=== PATIENT | male | born 1945 | race Caucasian/White ===

== ENCOUNTER 2016-05-16 11:43 | Inpatient (IN) | payer OTHER, BC ==
[~2016-05-16] VITALS: Ht 177.8 cm; Wt 98.8 kg
[~2016-05-16 11:43] MED LIST: ACET-1175 PO; CALC500C70 PO; DLN100 PO; DXM/4 PO; FAMO20TA11 PO; LEVE500T PO; LEVE500T13 PO; LORA-741 PO; MULTTAB58 PO; NITR1CAP32 PO; PROB1TAB16 PO; ROSU5TAB PO; SERT50TA PO; TAMS0.4C38 PO; VNTHFA/IN INH
[2016-05-16] MEDS ORDERED: LEVETIRACETAM IV 500 MG in DEXTROSE 5% 100ML 100 ML IV STA (12:05)
[2016-05-16] MEDS ORDERED: SODIUM CHLORIDE 0.9% 1000ML 1,000 ML IV STA (12:05)
--- NOTE | 2016-05-16 12:08 | EMERGENCY ROOM VISIT NOTE ---
History Report prepared by Keny: Bacilio Romero Under the Supervision of: Dr. Guilherme Cordero M.D. First contact with patient: 11:59 Chief Complaint: SEIZURE Stated Complaint: SEIZURE History of Present Illness The patient is a 70 year old male who presents to the Emergency Room with complaints of an episode of seizure occurring earlier today. Per the nurse, he was discharged from [facility] 2 days ago, and this morning he fell and had a seizure. It was not understood which occurred first. He lives at home. He had some right sided weakness, and is noted to have a brain tumor that was not operated on. The nurse notes the patient is slow to respond. The patient denies having any pain. The patient is on Keppra and Decadron. History is limited secondary to speech issue. The patient's has arrived, and she notes he had a fever this morning, and increased cough. Source of History: patient, spouse/significant other (), nursing staff History Limited By: other (speech issue) Onset: earlier today Position: other (global) Quality: other (seizure) Timing: other (episode) Associated Symptoms: + cough, + fevers (this morning), + weakness (Patient was noted to have right sided weakness) Note: The patient denies having any pain. Review of Systems ROS is unobtainable secondary to speech issue. Past Medical & Surgical Medical Problems: (1) Astrocytoma brain tumor (2) Diverticulitis (3) High cholesterol (4) HTN (hypertension) (5) No history of seizures (6) Seizures Family History Cancer Seizures Social History Smoking Status: Never Smoker Alcohol Use: none Drug Use: none Marital Status: Housing Status: lives with significant other Occupation Status: retired Current/Historical Medications Scheduled Aspirin (Aspirin Ec), 81 MG PO DAILY Dexamethasone (Dexamethasone), 4 MG PO BID Famotidine (Pepcid), 20 MG PO BID Lamotrigine (Lamictal), 100 MG PO BID Levetiracetam (Keppra), 1,500 MG PO Q12 Lorazepam (Ativan), 0.75 MG PO TID Multiple Vitamin (Multivitamin), 1 TAB PO DAILY Rosuvastatin Calcium (Crestor), 5 MG PO DAILY Sertraline (Zoloft), 200 MG PO DAILY Tamsulosin Hcl (Flomax), 0.4 MG PO HS Scheduled PRN Acetaminophen (Tylenol), 650 MG PO Q4 PRN for Pain Albuterol Hfa (Ventolin Hfa), 1 PUFF INH QID PRN for SOB/Wheezing Allergies Coded Allergies: No Known Allergies (Unverified , 05/16/16) Physical Exam Vital Signs Date Time Temp Pulse Resp B/P Pulse Ox O2 Delivery O2 Flow Rate FiO2 05/16/16 15:10 93 Room Air 05/16/16 14:18 57 23 154/87 93 Nasal Cannula 2.0 05/16/16 13:53 36.5 52 18 95 Room Air 05/16/16 12:55 46 22 150/84 96 Nasal Cannula 2.0 05/16/16 11:52 52 05/16/16 11:47 37.2 61 18 146/80 96 Nasal Cannula 2.0 Physical Exam GENERAL: Patient is in no acute distress. HEENT: No acute trauma, normocephalic atraumatic, mucous membranes moist, no nasal congestion, no scleral icterus. NECK: No stridor, no adenopathy, no meningismus, trachea is midline. LUNGS: Clear to auscultation bilaterally, no wheeze, no rhonchi, breath sounds equal. HEART: Without murmurs gallops or rubs, regular rate and rhythm. ABDOMEN: Soft, nontender, bowel sounds positive, no hernias, no peritonitis. EXTREMITIES: No edema. Skin tear to right lateral elbow. No evidence of fracture. No evidence for injury to other extremities. No cellulitis. NEUROLOGIC: Expressive aphagia and basic word salad. No facial droop. Patient is awake and can follow commands. Right arm and leg are weaker than left. SKIN: No rash, no jaundice, no diaphoresis. Medical Decision & Procedures ER Provider Diagnostic Interpretation: X ray results and stated below per my interpretation and radiologist interpretation. Other radiology results and stated below per my review and radiologist interpretation: HEAD CT NONCONTRAST Findings: Near complete opacification left frontal sinus. Mild mucosal thickening of the ethmoid and maxillary sinuses. The partially calcified left temporal lobe mass is again noted. These show no major change compared to the prior study. There is no midline shift. Hypodensity left superior temporal lobe possibly on the basis of a component of vasogenic edema is unchanged. There are no new or interval findings. There is no midline shift. The calvarium and skull base are intact. The ventricles and sulci are within normal limits. Impression: 1. Unchanging left temporal lobe mass. 2. Unchanging vasogenic edema left superior cerebral convexity. 3. Moderately progressive frontal, maxillary, and ethmoid sinusitis Electronically signed by: Gabino Palafox M.D. 05/16/2016 12:42 PM Dictated Date/Time: 05/16/2016 12:39 PM CHEST ONE VIEW PORTABLE FINDINGS: Interval development of a component of congestive failure. Small superimposed parenchymal infiltrate left midlung. Diaphragms smooth. IMPRESSION: Developing congestive failure. Small superimposed parenchymal infiltrate left midlung Electronically signed by: Gabino Palafox M.D. 05/16/2016 12:43 PM Dictated Date/Time: 05/16/2016 12:42 PM CHEST 2 VIEWS ROUTINE FINDINGS: Mild cardiomegaly. Mild congestive failure. Left lower lobe infiltrate. Atelectasis right base. IMPRESSION: Mild congestive failure with superimposed left mid and lower lung infiltrate again noted. This appears to be a left lower lobe distribution. Mild right basilar atelectasis. Electronically signed by: Gabino Palafox M.D. 05/16/2016 1:21 PM Dictated Date/Time: 05/16/2016 1:19 PM Laboratory Results 05/16/16 11:26 Red Blood Count 4.85, Mean Corpuscular Volume 98.4, Mean Corpuscular Hemoglobin 33.4, Mean Corpuscular Hemoglobin Concent 34.0, Mean Platelet Volume 11.7, Neutrophils (%) (Auto) 89.8, Lymphocytes (%) (Auto) 4.6, Monocytes (%) (Auto) 4.9, Eosinophils (%) (Auto) 0.1, Basophils (%) (Auto) 0.0, Neutrophils # (Auto) 18.73, Lymphocytes # (Auto) 0.95, Monocytes # (Auto) 1.03, Eosinophils # (Auto) 0.02, Basophils # (Auto) 0.01 05/16/16 11:26 Test 05/16/16 11:26 05/16/16 11:55 White Blood Count 20.86 K/uL (4.8-10.8) Red Blood Count 4.85 M/uL (4.7-6.1) Hemoglobin 16.2 g/dL (14.0-18.0) Hematocrit 47.7 % (42-52) Mean Corpuscular Volume 98.4 fL (80-100) Mean Corpuscular Hemoglobin 33.4 pg (25-34) Mean Corpuscular Hemoglobin Concent 34.0 g/dl (32-36) Platelet Count 165 K/uL (130-400) Mean Platelet Volume 11.7 fL (7.4-10.4) Neutrophils (%) (Auto) 89.8 % Lymphocytes (%) (Auto) 4.6 % Monocytes (%) (Auto) 4.9 % Eosinophils (%) (Auto) 0.1 % Basophils (%) (Auto) 0.0 % Neutrophils # (Auto) 18.73 K/uL (1.4-6.5) Lymphocytes # (Auto) 0.95 K/uL (1.2-3.4) Monocytes # (Auto) 1.03 K/uL (0.11-0.59) Eosinophils # (Auto) 0.02 K/uL (0-0.5) Basophils # (Auto) 0.01 K/uL (0-0.2) RDW Standard Deviation 52.1 fL (36.4-46.3) RDW Coefficient of Variation 14.5 % (11.5-14.5) Immature Granulocyte % (Auto) 0.6 % Immature Granulocyte # (Auto) 0.12 K/uL (0.00-0.02) Prothrombin Time 10.6 SECONDS (9.0-12.0) Prothromb Time International Ratio 1.0 (0.9-1.1) Activated Partial Thromboplast Time 25.0 SECONDS (21.0-31.0) Partial Thromboplastin Ratio 1.0 Anion Gap 7.0 mmol/L (3-11) Est Creatinine Clear Calc Drug Dose 120.8 ml/min Estimated GFR () 112.9 Estimated GFR (Non- 97.4 BUN/Creatinine Ratio 30.0 (10-20) Calcium Level 8.5 mg/dl (8.5-10.1) Total Bilirubin 0.7 mg/dl (0.2-1) Aspartate Amino Transf (AST/SGOT) 21 U/L (15-37) Alanine Aminotransferase (ALT/SGPT) 69 U/L (12-78) Alkaline Phosphatase 64 U/L (45-117) Pro-B-Type Natriuretic Peptide 343 pg/ml (0-900) Total Protein 6.1 gm/dl (6.4-8.2) Albumin 3.3 gm/dl (3.4-5.0) Globulin 2.8 gm/dl (2.5-4.0) Albumin/Globulin Ratio 1.2 (0.9-2) Urine Color DK YELLOW Urine Appearance CLEAR (CLEAR) Urine pH 6.5 (4.5-7.5) Urine Specific [place] 1.034 (1.000-1.030) Urine Protein NEG (NEG) Urine Glucose (UA) NEG (NEG) Urine Ketones NEG (NEG) Urine Occult Blood NEG (NEG) Urine Nitrite NEG (NEG) Urine Bilirubin NEG (NEG) Urine Urobilinogen NEG (NEG) Urine Leukocyte Esterase TRACE (NEG) Urine WBC (Auto) 1-5 /hpf (0-5) Urine RBC (Auto) 0-4 /hpf (0-4) Urine Hyaline Casts (Auto) 1-5 /lpf (0-5) Urine Epithelial Cells (Auto) 5-10 /lpf (0-5) Urine Bacteria (Auto) NEG (NEG) Laboratory results reviewed by me. Medications Administered Medications (Trade) Dose Ordered Sig/Pietro Route Start Time Stop Time Status Last Admin Dose Admin Sodium Chloride 1,000 ml @ 200 mls/hr Q5H STAT IV 05/16/16 12:05 05/16/16 16:03 DC 05/16/16 12:15 200 MLS/HR Levetiracetam/ Dextrose (Keppra Iv/D5 100ml) 105 ml @ 420 mls/hr NOW STAT IV 05/16/16 12:05 05/16/16 12:19 DC 05/16/16 12:53 420 MLS/HR Piperacillin Sod/ Tazobactam Sod (Zosyn Iv) 4.5 gm NOW STAT IV 05/16/16 13:27 05/16/16 13:28 DC 05/16/16 14:08 4.5 GM Albuterol/ Ipratropium (Duoneb) 3 ml NOW STAT INH 05/16/16 13:53 05/16/16 13:54 DC 05/16/16 14:08 3 ML ECG Indication: other (seizure) Rate (beats per minute): 52 Rhythm: sinus bradycardia Findings: PAC, no acute ischemic change ED Course 1201: The patient was evaluated in room B2. A complete history and physical exam was performed. 1205: Ordered Levetiracetam 500 mg/Dextrose 105 ml @ 420 mls/hr IV, and NSS 1, 000 ml @ 200 mls/hr IV. 1327: Ordered Zosyn Iv 4.5 gm IV. 1349: I updated the patient and his . 1353: Ordered Duoneb 3 ml INH. 1425: Discussed the patient's case MEY Rod. The patient will be evaluated for further management. 1430: Upon reexamination the patient is hemodynamically stable. I discussed results and treatment plan with the patient. He verbalizes agreement and understanding. The patient will be evaluated for further management. Medical Decision Differentials include breath through seizure, subtherapeutic anti seizure levels , intracranial bleeding, stroke, mass, infection, electrolyte imbalance. There is a significant leukocytosis, this would be consistent with infection. White count is 20,000. No worrisome anemia. No significant electrolyte abnormality, kidney failure or hepatitis. Brain CT shows evidence for his known malignancy, there was no bleeding, progressive sinusitis was noted. Chest x-ray shows what appears to be a pneumonia, no pneumothorax. The radiologist questioned CHF however, the patient does not present clinically with this picture, BNP is not elevated. EKG shows a sinus bradycardia, there was no acute ischemia. Urinalysis does not show infection. There is no coagulopathy. The patient presents with a seizure. Once his arrived, we were able to obtain more history. He has had a cough and a fever was noted this morning. The patient requires admission/observation. He has had a breakthrough seizure, he has pneumonia. He fell at home. The patient received IV saline, a DuoNeb, he received a dose of IV Keppra, 500 mg. He was given IV Zosyn for antibiotic coverage. I talked with the family, I talked with case management. The on-call hospitalist was consulted. Consults Time Called: 1358 Consulting Physician: Dr. Garret MATHIAS Returned Call: [phone] Discussed the patient's case MEY Rod. The patient will be evaluated for further management. Impression Primary Impression: Pneumonia Additional Impression: Seizure Scribe Attestation The scribe's documentation has been prepared under my direction and personally reviewed by me in its entirety. I confirm that the note above accurately reflects all work, treatment, procedures, and medical decision making performed by me. Departure Information Dispostion Being Evaluated By Hospitalist Referrals Cherry Lange C.R.N.P. (PCP) Patient Instructions [facility] Problem Qualifiers
[2016-05-16] MEDS ORDERED: DEXA1TAB16 PO (12:14)
[2016-05-16] MEDS ORDERED: ASPI81TA28 PO (12:14)
[2016-05-16] MEDS ORDERED: LAMO100T16 PO (12:14)
[2016-05-16 12:21] LABS: BASO ABS # 0.01 K/uL (0-0.2); COMPLETE YES; EOS % 0.1 %; HEMATOCRIT 47.7 % (42-52); IG% 0.6 %; LYMPH % 4.6 %; LYMPH ABS # 0.95 K/uL (1.2-3.4); MEAN CELL VOLUME 98.4 fL (80-100); MEAN CORPUSCULAR HEMOGLOBIN 33.4 pg (25-34); MEAN PLATELET VOLUME 11.7 fL (7.4-10.4); MONO % 4.9 %; NEUT % 89.8 %; PLATELET COUNT 165 K/uL (130-400); RED BLOOD COUNT 4.85 M/uL (4.7-6.1); WHITE BLOOD COUNT 20.86 K/uL (4.8-10.8)
[2016-05-16 12:27] LABS: CALCIUM 8.5 mg/dl (8.5-10.1); CREATININE 0.68 mg/dl (0.60-1.40); POTASSIUM 3.6 mmol/L (3.5-5.1)
[2016-05-16 12:30] LABS: ALB/GLOB RATIO 1.2 (0.9-2); PROTHROMBIN TIME (PATIENT) 10.6 SECONDS (9.0-12.0)
[2016-05-16 12:36] LABS: URINE APPEARANCE CLEAR (CLEAR); URINE BILIRUBIN NEG (NEG); URINE COLOR DK YELLOW; URINE NITRITE NEG (NEG); URINE PH 6.5 (4.5-7.5); URINE SPECIFIC GRAVITY 1.034 (1.000-1.030); UROBILINOGEN NEG (NEG); ZZUR CULT IF INDIC CLEAN CATCH NO
[2016-05-16 12:40] LABS: MANUAL MICROSCOPIC REQUIRED? NO; REVIEW REQ? NO
--- NOTE | 2016-05-16 12:43 | DIAGNOSTIC IMAGING REPORT ---
HEAD CT NONCONTRAST CT DOSE: 687.98 mGy.cm HISTORY: Astrocytoma EVALUATE ALTERED MENTAL STATUS/WEAKNESS TECHNIQUE: Multiaxial CT images of the head were performed without the use of intravenous contrast. Comparison: 03/17/2016 Findings: Near complete opacification left frontal sinus. Mild mucosal thickening of the ethmoid and maxillary sinuses. The partially calcified left temporal lobe mass is again noted. These show no major change compared to the prior study. There is no midline shift. Hypodensity left superior temporal lobe possibly on the basis of a component of vasogenic edema is unchanged. There are no new or interval findings. There is no midline shift. The calvarium and skull base are intact. The ventricles and sulci are within normal limits. Impression: 1. Unchanging left temporal lobe mass. 2. Unchanging vasogenic edema left superior cerebral convexity. 3. Moderately progressive frontal, maxillary, and ethmoid sinusitis Electronically signed by: Gabino Palafox M.D. 05/16/2016 12:42 PM Dictated Date/Time: 05/16/2016 12:39 PM
--- NOTE | 2016-05-16 12:45 | DIAGNOSTIC IMAGING REPORT ---
CHEST ONE VIEW PORTABLE CLINICAL HISTORY: EVALUATE ALTERED MENTAL STATUS/WEAKNESS COMPARISON STUDY: 08/21/2015 FINDINGS: Interval development of a component of congestive failure. Small superimposed parenchymal infiltrate left midlung. Diaphragms smooth. IMPRESSION: Developing congestive failure. Small superimposed parenchymal infiltrate left midlung Electronically signed by: Gabino Palafox M.D. 05/16/2016 12:43 PM Dictated Date/Time: 05/16/2016 12:42 PM
--- NOTE | 2016-05-16 13:22 | DIAGNOSTIC IMAGING REPORT ---
CHEST 2 VIEWS ROUTINE CLINICAL HISTORY: poor film at bedside pneumonia COMPARISON STUDY: Same date FINDINGS: Mild cardiomegaly. Mild congestive failure. Left lower lobe infiltrate. Atelectasis right base. IMPRESSION: Mild congestive failure with superimposed left mid and lower lung infiltrate again noted. This appears to be a left lower lobe distribution. Mild right basilar atelectasis. Electronically signed by: Gabino Palafox M.D. 05/16/2016 1:21 PM Dictated Date/Time: 05/16/2016 1:19 PM
[2016-05-16] MEDS ORDERED: PIPERACILLIN/TAZOBACTAM 4.5 GM/100ML D5W IV STA (13:27)
[2016-05-16] MEDS ORDERED: ALBUT/IPRATROP 3MG/0.5MG NEB 3 ML VIAL INH STA (13:53)
--- NOTE | 2016-05-16 15:09 | History and Physical ---
History & Physical Date & Time of Service: May 16, 2016 at 14:47 Chief Complaint: Seizure Primary Care Physician: Cherry Lange C.R.N.P. History of Present Illness Source: patient, family, hospital records This patient is a 70-year-old male that was presented to the emergency department this morning with a seizure that resulted in a fall. The event was unwitnessed. The patient has a history of chronic seizures. This is secondary to his known diagnosis of astrocytoma that was discovered 2 years ago. The patient follows with oncology in [place]. He was just admitted to the hospital this last week, he received chemotherapy. He was discharged home 2 days ago. The patient's notes that he was also running a fever and having episodes of hemoptysis. He also had bloody discharge from his nose. The history is taken primarily from the patient's , because the patient has difficulty communicating. He is able to tell me that he has no pain. He denies any shortness of breath or chest pain. The patient's denies any tonic-clonic movements. He didn't lose control of his bladder. This is unusual for him. His seizures consist of him having episodes of unresponsiveness and blankly stairs. He has chronic R sided weakness. In the emergency department, the patient received 500 mg of Keppra IV. Seizures at this point is controlled. 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 (6000 cGy, 30 fractions, concurrent temozolamide) Change in mental status expressive aphasia CVA was ruled out Status post seizure MRI revealing hyperintense lesion left insula Stealth stereotactic biopsy 09/20/2014 revealing anaplastic astrocytoma grade 3 Status post completion of combined radiation and chemotherapy 12/21/2014 received 6000 cGy Chemotherapy comprised of temozolomide Admission for seizure disorder and finding of progression of disease Initiation of Avastin chemotherapy Status: Chronic (2) Diverticulitis Status: Resolved (3) High cholesterol Status: Chronic (4) HTN (hypertension) Status: Chronic (5) No history of seizures Status: Chronic (6) Seizures Status: Chronic Family History Cancer Seizures Social History Smoking Status: Unknown if Ever Smoked Drug Use: none Marital Status: Housing status: lives with family Occupational Status: retired Immunizations History of Influenza Vaccine: Yes Influenza Vaccine Date: Jan 10, 2015 History of Tetanus Vaccine?: Yes Tetanus Immunization Date: Apr 12, 2011 History of Pneumococcal: Yes Pneumococcal Date: Jan 10, 2015 History of Hepatitis B Vaccine: Unknown Multi-Drug Resistant Organisms History of MDRO: No Allergies Coded Allergies: No Known Allergies (Unverified , 05/16/16) Home Medications Scheduled Aspirin (Aspirin Ec), 81 MG PO DAILY Dexamethasone (Dexamethasone), 4 MG PO BID Famotidine (Pepcid), 20 MG PO BID Lamotrigine (Lamictal), 100 MG PO BID Levetiracetam (Keppra), 1,500 MG PO Q12 Lorazepam (Ativan), 0.75 MG PO TID Multiple Vitamin (Multivitamin), 1 TAB PO DAILY Rosuvastatin Calcium (Crestor), 5 MG PO DAILY Sertraline (Zoloft), 200 MG PO DAILY Tamsulosin Hcl (Flomax), 0.4 MG PO HS Scheduled PRN Acetaminophen (Tylenol), 650 MG PO Q4 PRN for Pain Albuterol Hfa (Ventolin Hfa), 1 PUFF INH QID PRN for SOB/Wheezing Review of Systems Unable to perform secondary to aphasia Physical Exam Vital Signs Date Time Temp Pulse Resp B/P Pulse Ox O2 Delivery O2 Flow Rate FiO2 05/16/16 14:18 57 23 154/87 93 Nasal Cannula 2.0 05/16/16 13:53 36.5 52 18 95 Room Air 05/16/16 12:55 46 22 150/84 96 Nasal Cannula 2.0 05/16/16 11:52 52 05/16/16 11:47 37.2 61 18 146/80 96 Nasal Cannula 2.0 General Appearance: + mild distress (mild respiratory distress noted.) Eyes: PERRL, EOMI ENT: + pertinent finding (no tongue deviation noted. Oral mucosa dry.) Neck: no JVD Respiratory/Chest: + pertinent finding (crackles at the right base. Decreased breath sounds at the left base. No wheezing noted. Saturating at 95% on 2 L of oxygen per nasal cannula.) Cardiovascular: regular rate, rhythm Abdomen/GI: normal bowel sounds, non tender, soft Neurologic/Psych: + pertinent finding (right-sided weakness noted. Aphasia noted. Able to answer a few questions appropriately.) Skin: warm/dry Diagnostics Laboratory Results Results Past 24 Hours Test 05/16/16 11:26 05/16/16 11:55 Range/Units White Blood Count 20.86 4.8-10.8 K/uL Red Blood Count 4.85 4.7-6.1 M/uL Hemoglobin 16.2 14.0-18.0 g/dL Hematocrit 47.7 42-52 % Mean Corpuscular Volume 98.4 80-100 fL Mean Corpuscular Hemoglobin 33.4 25-34 pg Mean Corpuscular Hemoglobin Concent 34.0 32-36 g/dl Platelet Count 165 130-400 K/uL Mean Platelet Volume 11.7 7.4-10.4 fL Neutrophils (%) (Auto) 89.8 % Lymphocytes (%) (Auto) 4.6 % Monocytes (%) (Auto) 4.9 % Eosinophils (%) (Auto) 0.1 % Basophils (%) (Auto) 0.0 % Neutrophils # (Auto) 18.73 1.4-6.5 K/uL Lymphocytes # (Auto) 0.95 1.2-3.4 K/uL Monocytes # (Auto) 1.03 0.11-0.59 K/uL Eosinophils # (Auto) 0.02 0-0.5 K/uL Basophils # (Auto) 0.01 0-0.2 K/uL RDW Standard Deviation 52.1 36.4-46.3 fL RDW Coefficient of Variation 14.5 11.5-14.5 % Immature Granulocyte % (Auto) 0.6 % Immature Granulocyte # (Auto) 0.12 0.00-0.02 K/uL Prothrombin Time 10.6 9.0-12.0 SECONDS Prothromb Time International Ratio 1.0 0.9-1.1 Activated Partial Thromboplast Time 25.0 21.0-31.0 SECONDS Partial Thromboplastin Ratio 1.0 Sodium Level 145 136-145 mmol/L Potassium Level 3.6 3.5-5.1 mmol/L Chloride Level 111 98-107 mmol/L Carbon Dioxide Level 27 21-32 mmol/L Anion Gap 7.0 3-11 mmol/L Blood Urea Nitrogen 20 7-18 mg/dl Creatinine 0.68 0.60-1.40 mg/dl Est Creatinine Clear Calc Drug Dose 120.8 ml/min Estimated GFR () 112.9 Estimated GFR (Non- 97.4 BUN/Creatinine Ratio 30.0 10-20 Random Glucose 90 70-99 mg/dl Calcium Level 8.5 8.5-10.1 mg/dl Total Bilirubin 0.7 0.2-1 mg/dl Aspartate Amino Transf (AST/SGOT) 21 15-37 U/L Alanine Aminotransferase (ALT/SGPT) 69 12-78 U/L Alkaline Phosphatase 64 45-117 U/L Pro-B-Type Natriuretic Peptide 343 0-900 pg/ml Total Protein 6.1 6.4-8.2 gm/dl Albumin 3.3 3.4-5.0 gm/dl Globulin 2.8 2.5-4.0 gm/dl Albumin/Globulin Ratio 1.2 0.9-2 Urine Color DK YELLOW Urine Appearance CLEAR CLEAR Urine pH 6.5 4.5-7.5 Urine Specific [place] 1.034 1.000-1.030 Urine Protein NEG NEG Urine Glucose (UA) NEG NEG Urine Ketones NEG NEG Urine Occult Blood NEG NEG Urine Nitrite NEG NEG Urine Bilirubin NEG NEG Urine Urobilinogen NEG NEG Urine Leukocyte Esterase TRACE NEG Urine WBC (Auto) 1-5 0-5 /hpf Urine RBC (Auto) 0-4 0-4 /hpf Urine Hyaline Casts (Auto) 1-5 0-5 /lpf Urine Epithelial Cells (Auto) 5-10 0-5 /lpf Urine Bacteria (Auto) NEG NEG Microbiology Results 05/16/16 Blood Culture, Received Pending 05/16/16 Blood Culture, Received Pending Diagnostic Radiology Patient: SUSAN TRAN Address1: [address] [place] [address] Rec: [id number] Address2: [facility] ID: [id number] [facility] Zip: [place] [address] Date: 1945 Sex: M Room/Bed: Ref Phy: Cherry Lange C.R.N.PPurnima SC: KATELYN Att Phy: Report #: [id number] Renata Phy: Cherry Lnage C.R.N.PPurnima Test: HWO Admit Phy: Harvest Worker Fruit: HORACIO Interpreting Phy: Gabino Palafox M.D. Diagnosis: SEIZURE Ordering Phy: Guilherme Cordero M.D. Service Date: 05/16/16 Admit Date: 05/16/16 MNE: PWRSCRIBE CONF: DICTATED BY: Gabino Palafox M.D.]] CC: Guilherme Cordero M.D. Wilt, Kathryn A, C.R.N.PPurnima Endcc: [~ rep ct add3]] HEAD CT NONCONTRAST CT DOSE: 687.98 mGy.cm HISTORY: Astrocytoma EVALUATE ALTERED MENTAL STATUS/WEAKNESS TECHNIQUE: Multiaxial CT images of the head were performed without the use of intravenous contrast. Comparison: 03/17/2016 Findings: Near complete opacification left frontal sinus. Mild mucosal thickening of the ethmoid and maxillary sinuses. The partially calcified left temporal lobe mass is again noted. These show no major change compared to the prior study. There is no midline shift. Hypodensity left superior temporal lobe possibly on the basis of a component of vasogenic edema is unchanged. There are no new or interval findings. There is no midline shift. The calvarium and skull base are intact. The ventricles and sulci are within normal limits. Impression: 1. Unchanging left temporal lobe mass. 2. Unchanging vasogenic edema left superior cerebral convexity. 3. Moderately progressive frontal, maxillary, and ethmoid sinusitis Electronically signed by: Gabino Palafox M.D. 05/16/2016 12:42 PM Dictated Date/Time: 05/16/2016 12:39 PM The status of this report is Signed. Draft = Not yet reviewed or approved by Radiologist. Signed = Reviewed and approved by Radiologist. Patient: SUSAN TRAN Address1: [address] [place] [address] Rec: [id number] Address2: [facility] ID: [id number] [facility] Zip: [place] [address] Date: 1945 Sex: M Room/Bed: Ref Phy: Cherry Lange C.R.N.PPurnima SC: KATELYN Att Phy: Report #: [id number] Renata Phy: Cherry Lange C.R.N.PPurnima Test: CXR Admit Phy: Harvest Worker Fruit: ERNESTINA Interpreting Phy: Gabino Palafox M.D. Diagnosis: SEIZURE Ordering Phy: Guilherme Cordero M.D. Service Date: 02/04/17 Admit Date: 05/16/16 MNE: PWRSCRIBE CONF: DICTATED BY: Gabino Palafox M.D.]] CC: Guilherme Cordero M.D. Wilt, Kathryn A, C.R.N.P. Endcc: [~ rep ct add3]] CHEST 2 VIEWS ROUTINE CLINICAL HISTORY: poor film at bedside pneumonia COMPARISON STUDY: Same date FINDINGS: Mild cardiomegaly. Mild congestive failure. Left lower lobe infiltrate. Atelectasis right base. IMPRESSION: Mild congestive failure with superimposed left mid and lower lung infiltrate again noted. This appears to be a left lower lobe distribution. Mild right basilar atelectasis. Electronically signed by: Gabino Palafox M.D. 05/16/2016 1:21 PM Dictated Date/Time: 05/16/2016 1:19 PM The status of this report is Signed. Draft = Not yet reviewed or approved by Radiologist. Signed = Reviewed and approved by Radiologist. <AttendingPhy></AttendingPhy> <FamilyPhy>Cherry Lange C.R.NPurnimaPPurnima</FamilyPhy> < PrimaryPhy>Cherry Lange C.R.NPurnimaP.</PrimaryPhy> <UnitNumber>[id number]</ UnitNumber> <VisitNumber>[id number]</VisitNumber> EKG Sinus bradycardia with a rate of 52 bpm Q waves noted in the inferior leads No significant change noted Impression Assessment and Plan 70-year-old male with a history of chronic seizures and astrocytoma presents the ED today with a breakthrough seizure this morning resulting in a fall. No injuries noted. CT of the head shows no new changes. Chest x-ray reveals likely pneumonia at the left base. [id number] -Admit to medical floor -Begin vancomycin, zosyn and levaquin -Continue O2 -hold off on IVF for now (mild pulm congestion) -blood cx, sputum cx -swallow eval Breakthrough seizure-controlled with one dose of Keppra 500 mg IV in ER, cerebral edema remains unchanged -Continue home dose of Keppra 1500 mg po BID -Continue lamotrigine 100 mg po BID -Decadron change to IV 4 mg QID Hx astrocytoma-on palliative chemo -f/u onc in [place] Hyperlipidemia -Continue Crestor 5 mg daily Depression -Continue sertraline 100 mg daily BPH -Continue tamsulosin 0.4 mg daily Urinary incontinence-likely related to seizure -We will send a urinalysis to make sure he does not have a UTI DVT prophylaxis -Lovenox 40 mg subQ daily -TEDS, SCDs CODE STATUS -LEVEL I FULL CODE Level of Care Oncology Resuscitation Status FULL RESUSCITATION VTE Prophylaxis VTE Risk Assessment Done? Y/N: Yes Risk Level: Moderate Given or contraindicated: Enoxaparin (Lovenox)SQ, T.E.D. Stockings, SCD's Assessment and Plan ATTENDING ADDENDUM: I have physically seen and examined this patient, have directed their medical care, have supervised the PA's activity, and agree with the H&P as noted above, with the following changes: NONE. The patient is a 70-year-old male who presents emergency department due to a fall after having a seizure. He has a known history of seizures secondary to brain astrocytoma. His reports she's also had a fever has had some episodes of hemoptysis, and a bloody discharge from his nose. The patient himself is disoriented at baseline, and the history of present illness is primarily provided by the . Review of systems as noted by the is negative other than for that noted above. He has not had any chest pain, shortness of breath, fevers, chills, nausea, vomiting, diarrhea, constipation, urinary dysfunction, lightheadedness, dizziness, headache, rash, blood in urine or stool, focal weakness in arms or legs. The patient is lethargic and disoriented, normocephalic and atraumatic, lying in bed and in no acute distress. HEENT--PERRL, EOMI, mucous membranes and oropharynx dry. Neck--supple, no JVD or bruits, thyroid normal, trachea midline, no adenopathy. Heart--normal S1 and S2, no extra beats, no murmurs, rubs or gallops. Lungs--clear bilaterally, no respiratory distress, no accessory muscle use. Abdomen--normal bowel sounds and soft, nontender and nondistended, no hernias or masses, no organomegaly. Extremities--no cyanosis, clubbing or edema. There are good distal pulses b/l. Dermatologic--normal skin turgor, normal color, warm and dry, no abnormal lymph nodes, no rash. Neurologic--cranial nerves II through XII grossly intact. Psychiatric--normal affect. Assessment and Plan: Chronic seizure disorder, brain astrocytoma, acute seizure event--the patient be admitted for frequent neuro checks. He's received Keppra 500 mg IV in the emergency department, and will continue his current dosing of Keppra at 15 mg by mouth twice a day and lamotrigine 100 mg by mouth twice a day. We will change Decadron 4 mg by mouth 4 times a day to 4 mg IV 4 times a day. Healthcare associated pneumonia--place on vancomycin IV per renal dosing, Zosyn 3.375 mg IV every 12 hours, levofloxacin 500 mg IV every 24 hours, Xopenex with Atrovent nebulizer to use every 6 hours while awake and every 2 hours when necessary, and guaifenesin extended release 600 mg by mouth twice a day.
[2016-05-16 15:10] VITALS: O2SAT 93; Ht 177.8 cm; Wt 98.8 kg
[2016-05-16] MEDS ORDERED: ONDANSETRON INJ 2 MG/ML 2 ML VIAL IV PRN (15:15)
[2016-05-16] MEDS ORDERED: ACETAMINOPHEN 325 MG TAB PO PRN (15:15)
[2016-05-16] MEDS ORDERED: PIPERACILL/TAZOBAC CONSULT ACTIVE PRN (15:30)
[2016-05-16] MEDS ORDERED: VANCOMYCIN CONSULT ACTIVE PRN (15:30)
[2016-05-16] MEDS ORDERED: LEVOFLOXACIN CONSULT ACTIVE PRN (15:30)
[2016-05-16] MEDS ORDERED: VANCOMYCIN INJ 2,500 MG in SODIUM CHLORIDE 0.9% 500ML 500 ML IV ONE (15:45)
[2016-05-16 16:45] VITALS: O2SAT 93
[2016-05-16] MEDS: DEXAMETHASONE INJ 4 MG in SYRINGE 0 ML IV SCH ×2 (16:48→21:54)
[2016-05-16] MEDS: LEVOFLOXACIN / D5W 750 MG in PREMIXED IN D5W 150 ML IV SCH (16:48)
--- NOTE | 2016-05-16 16:52 | Pharmacy Progress Note ---
Pharmacy Antibiotic Consult Date of Service: May 16, 2016. Pharmacy Dosing Scope Pharmacy is consulted to initiate vancomycin IV dosing therapy, order appropriate labs and adjust drug dose/frequency. Subjective The patient is a 70 year old male admitted on May 16, 2016 at 15:17 with a hospital acquired pneumonia. He was previously admitted to this previous month. Objective Height (Feet): 5 Height (Inches): 10.00 Weight (Kilograms): 98.800 Lab Results (24hrs): Laboratory Tests Test 05/16/16 11:26 BUN/Creatinine Ratio 30.0 Blood Urea Nitrogen 20 mg/dl Creatinine 0.68 mg/dl White Blood Count 20.86 K/uL Red Blood Count 4.85 M/uL Hemoglobin 16.2 g/dL Hematocrit 47.7 % Mean Corpuscular Volume 98.4 fL Mean Corpuscular Hemoglobin 33.4 pg Mean Corpuscular Hemoglobin Concent 34.0 g/dl Platelet Count 165 K/uL Mean Platelet Volume 11.7 fL Neutrophils (%) (Auto) 89.8 % Lymphocytes (%) (Auto) 4.6 % Monocytes (%) (Auto) 4.9 % Eosinophils (%) (Auto) 0.1 % Basophils (%) (Auto) 0.0 % Neutrophils # (Auto) 18.73 K/uL Lymphocytes # (Auto) 0.95 K/uL Monocytes # (Auto) 1.03 K/uL Eosinophils # (Auto) 0.02 K/uL Basophils # (Auto) 0.01 K/uL Assessment & Plan Loading dose: vancomycin 2500 (25 mg/kg) mg IV X 1 dose then: vancomycin 1450 mg IV every 8 hours (15 mg/kg, pharmacokinetic data suggests a half-life of 8 hr with an elimination constant of 0.087 hr-1) . Goal peak level estimate: between 35 - 40 mcg/mL. Goal trough level estimate: between 15 - 20 mcg/mL (indication pneumonia). Trough has been ordered for: prior to 1800 dose. Pharmacy will continue to follow and will adjust dose/frequency as necessary. Thank you
[2016-05-16] MEDS ORDERED: VANCOMYCIN TROUGH SCH (17:30)
[2016-05-16] MEDS: PIPERACILL/TAZOBAC IV 3.375 GM in DEXTROSE 5% 100ML 100 ML IV SCH (21:52)
[2016-05-16] MEDS: LORAZEPAM 0.5 MG TAB PO SCH (21:54)
[2016-05-16] MEDS: ENOXAPARIN 40 MG/0.4 ML SYR SQ SCH (21:55)
[2016-05-16] MEDS: LEVETIRACETAM 500 MG TAB PO SCH (21:56)
[2016-05-16] MEDS: TAMSULOSIN HCL 0.4 MG CAP PO SCH (21:56)
[2016-05-16] MEDS: FAMOTIDINE 20 MG TAB PO SCH (21:57)
[2016-05-17 01:02] VITALS: BP 132/72; PULSE 44; TEMP 36.6; O2SAT 96
[2016-05-17] MEDS: VANCOMYCIN INJ 1,450 MG in SODIUM CHLORIDE 0.9% 500ML 500 ML IV SCH ×3 (02:07→18:15)
[2016-05-17] MEDS: PIPERACILL/TAZOBAC IV 3.375 GM in DEXTROSE 5% 100ML 100 ML IV SCH ×4 (04:53→20:22)
[2016-05-17 06:18] LABS: CREATININE 0.48 mg/dl (0.60-1.40)
[2016-05-17 07:33] VITALS: BP 185/75; PULSE 42; TEMP 36.7; O2SAT 95
[2016-05-17] MEDS: MULTIVITAMIN TAB PO SCH (08:00)
[2016-05-17] MEDS: LEVETIRACETAM 500 MG TAB PO SCH ×2 (08:00→20:24)
[2016-05-17] MEDS: FAMOTIDINE 20 MG TAB PO SCH ×2 (08:00→20:23)
[2016-05-17] MEDS: ASPIRIN 81 MG ECTAB PO SCH (08:00)
[2016-05-17] MEDS: SERTRALINE HCL 100 MG TAB PO SCH (08:00)
[2016-05-17] MEDS: ROSUVASTATIN CALCIUM 5 MG TAB PO SCH (08:00)
[2016-05-17] MEDS: DEXAMETHASONE INJ 4 MG in SYRINGE 0 ML IV SCH ×4 (08:01→20:24)
[2016-05-17] MEDS: LORAZEPAM 0.5 MG TAB PO SCH ×3 (08:01→20:22)
--- NOTE | 2016-05-17 12:18 | Hospitalist Progress Note ---
Hospitalist Progress Note Date of Service May 17, 2016. Subjective Pt evaluation today including: conversation w/ patient, physical exam, chart review, lab review, review of studies, review of inpatient medication list Patient had no acute issue overnight Constitutional: No fever Eyes: No worsening of vision ENT: No hearing loss, No nasal symptoms Respiratory: No cough, No shortness of breath Cardiovascular: No chest pain, No edema Abdomen: No constipation, No diarrhea, No pain, No vomiting Male : No dysuria Neurologic: No memory loss Psychiatric: No depression symptoms Endo: No fatigue Skin: No rash Medications Current Inpatient Medications Medications (Trade) Dose Ordered Sig/Pietro Route Start Time Stop Time Status Last Admin Dose Admin Dexamethasone Sodium Phosphate 4 mg/Syringe 1 ml @ 1 mls/min QID IV 05/16/16 17:00 06/15/16 16:59 05/17/16 12:04 1 MLS/MIN Vancomycin HCl 1450 mg/Sodium Chloride 529 ml @ 198.375 mls/hr Q8H IV 05/17/16 02:00 05/23/16 20:59 05/17/16 09:51 198.375 MLS/HR Levofloxacin 750 mg/Prmx 150 ml @ 100 mls/hr Q24H IV 05/16/16 17:00 05/23/16 16:59 05/16/16 16:48 100 MLS/HR Piperacillin Sod/ Tazobactam Sod/ Dextrose (Zosyn Iv/D5 100ml) 115 ml @ 28.75 mls/ hr Q8H IV 05/16/16 20:00 05/23/16 19:59 05/17/16 12:04 28.75 MLS/HR Enoxaparin Sodium (Lovenox Inj) 40 mg Q24H SQ 05/16/16 21:00 06/15/16 20:59 05/16/16 21:55 40 MG Acetaminophen (Tylenol Tab) 650 mg Q4H PRN PO 05/16/16 15:15 06/15/16 15:14 Ondansetron HCl (Zofran Inj) 4 mg Q6H PRN IV 05/16/16 15:15 06/15/16 15:14 Aspirin (Ecotrin Tab) 81 mg DAILY PO 05/17/16 08:00 06/16/16 08:59 05/17/16 08:00 81 MG Famotidine (Pepcid Tab) 20 mg BID PO 05/16/16 20:00 06/15/16 20:59 05/17/16 08:00 20 MG Lamotrigine (Lamictal Tab) 100 mg BID PO 05/16/16 20:00 06/15/16 20:59 05/17/16 08:00 100 MG Levetiracetam (Keppra Tab) 1,500 mg Q12 PO 05/16/16 21:00 06/15/16 20:59 05/17/16 08:00 1,500 MG Lorazepam (Ativan Tab) 0.75 mg TID PO 05/16/16 20:00 06/15/16 20:59 05/17/16 08:01 0.75 MG Multivitamins (Multivitamin Tab) 1 tab DAILY PO 05/17/16 08:00 06/16/16 08:59 05/17/16 08:00 1 TAB Rosuvastatin Calcium (Crestor Tab) 5 mg DAILY PO 05/17/16 08:00 06/16/16 08:59 05/17/16 08:00 5 MG Sertraline HCl (Zoloft Tab) 200 mg DAILY PO 05/17/16 08:00 06/16/16 08:59 05/17/16 08:00 200 MG Tamsulosin HCl (Flomax Cap) 0.4 mg HS PO 05/16/16 21:00 06/15/16 20:59 05/16/16 21:56 0.4 MG Vancomycin HCl (Consult) 1 ea UD PRN N/A 05/16/16 15:30 06/15/16 15:29 Piperacillin Sod/ Tazobactam Sod (Consult) 1 ea UD PRN N/A 05/16/16 15:30 06/15/16 15:29 Levofloxacin (Consult) 1 ea UD PRN N/A 05/16/16 15:30 06/15/16 15:29 Objective Vital Signs Date Time Temp Pulse Resp B/P Pulse Ox O2 Delivery O2 Flow Rate FiO2 05/17/16 08:29 Room Air 05/17/16 07:33 36.7 42 18 185/75 95 Nasal Cannula 3.0 05/17/16 01:02 36.6 44 20 132/72 96 Nasal Cannula 2.0 05/17/16 00:00 Nasal Cannula 2.0 05/16/16 16:45 93 Nasal Cannula 2.0 05/16/16 15:27 60 20 147/86 93 Room Air 05/16/16 15:10 93 Room Air 05/16/16 14:18 57 23 154/87 93 Nasal Cannula 2.0 05/16/16 13:53 36.5 52 18 95 Room Air 05/16/16 12:55 46 22 150/84 96 Nasal Cannula 2.0 Physical Exam General Appearance: WD/WN, no apparent distress Eyes: normal inspection ENT: normal ENT inspection Neck: supple Respiratory/Chest: chest non-tender, + crackles, + rhonchi Cardiovascular: regular rate, rhythm, no edema Abdomen: normal bowel sounds, non tender, soft Extremities: normal range of motion, non-tender Neurologic/Psychiatric: regional marketing director II-XII nml as tested, no motor/sensory deficits, alert, + disoriented Skin: normal color, warm/dry, no rash Laboratory Results Last 24 Hours Test 05/17/16 05:10 Creatinine 0.48 mg/dl Est Creatinine Clear Calc Drug Dose 171.2 ml/min Estimated GFR () 130.3 Estimated GFR (Non- 112.4 Assessment and Plan 70-year-old male with a history of chronic seizures and astrocytoma presents the ED today with a breakthrough seizure this morning resulting in a fall. No injuries noted. CT of the head shows no new changes. Chest x-ray reveals likely pneumonia at the left base. [id number] -continue vancomycin, zosyn and levaquin -blood cx NGTD -speech and swallow eval Seizure -controlled with one dose of Keppra 500 mg IV in ER, -Continue Keppra 1500 mg po BID -Continue lamotrigine 100 mg po BID - continue decadron change to IV 4 mg QID Hx astrocytoma-on palliative chemo -f/u onc in [place] - contine decadron IV Hyperlipidemia -Continue Crestor 5 mg daily Depression -Continue sertraline 100 mg daily BPH -Continue tamsulosin 0.4 mg daily DVT prophylaxis -Lovenox 40 mg subQ daily FULL CODE
[2016-05-17 15:22] VITALS: BP 135/70; PULSE 46; TEMP 36.4; O2SAT 96
[2016-05-17 16:10] VITALS: O2SAT 93
[2016-05-17] MEDS: LEVOFLOXACIN / D5W 750 MG in PREMIXED IN D5W 150 ML IV SCH (16:21)
[2016-05-17] MEDS ORDERED: VANCOMYCIN TROUGH SCH (17:30)
--- NOTE | 2016-05-17 19:06 | Pharmacy Progress Note ---
Pharmacy Antibiotic Prog Note Date of Service: May 17, 2016. Subjective: The patient is currently receiving vancomycin 1450 mg IV every 8 hours. The patient is currently on day # 2 of IV therapy. Objective: Height (Feet): 5 Height (Inches): 10.00 Weight (Kilograms): 98.800 Levels: Item Value Date Time Vancomycin Level Trough 11.9 mcg/ml 05/17/16 1734 Lab Results (24hrs): Laboratory Tests Test 05/17/16 05:10 Creatinine 0.48 mg/dl Micro Results: RUN DATE: 05/16/16 [facility] LAB PAGE 1 RUN TIME: 1851 Specimen Inquiry PATIENT: SUSAN TRAN LOC: [facility] [place] # : [id number] AGE/SX: 70/M ROOM: E402 REG : 05/16/[address]: Warren Combs M.D : 1945 BED: 1 DIS : STATUS: ADM IN TLOC: SPEC #: [id number] KARINA: 05/16/16 STATUS: COMP REQ #: [id number] RECD: 05/16/[address] [facility] [address]: Nancy España PA-C SOURCE: NASAL ENTR: 05/16/[address] [facility] [address]: Warren Combs M.D. [facility]: Cherry Lange C.R.N.P. ORDERED: MRSA DNA COMMENTS: Has Specimen Been Obtained/Collected? Y Procedure Result Verified Site MRSA DNA (NASAL SWAB) Final 05/16/16 Specimen Negative for MRSA by DNA Probe Assessment & Plan: This drug level is: Subtherapeutic Change to vancomycin 1700 mg IV every 8 hours (this represents an approximately 20% increase. I did not want to shorten the dosing interval of the drug because in the elderly this could accumulate quickly. Therefore, a higher dose was warranted. I felt that being extremely aggressive was not necessary as the MRSA swab was negative). Goal peak level estimate: between 35 - 40 mcg/mL. Goal trough level estimate: between 15 - 20 mcg/mL (indication pneumonia). Trough has been ordered for: prior to the midnight dose. I would strongly recommend discontinuing the vancomycin at this point as therapeutic levels are not being reached and the patient's MRSA swab was negative. I spoke with Dr Susanna patiño who was not extremely well versed in the patient's status and therefore deferred to tomorrow's provider. Pharmacy will continue to follow and will adjust dose/frequency as necessary. Thank you
[2016-05-17] MEDS: TAMSULOSIN HCL 0.4 MG CAP PO SCH (20:23)
[2016-05-17] MEDS: ENOXAPARIN 40 MG/0.4 ML SYR SQ SCH (20:25)
[2016-05-17 23:33] VITALS: BP 181/74; PULSE 38; TEMP 36.7; O2SAT 95
[2016-05-17 23:58] VITALS: BP 176/74; PULSE 44
[2016-05-18] MEDS: VANCOMYCIN INJ 1,700 MG in SODIUM CHLORIDE 0.9% 500ML 500 ML IV SCH ×2 (00:59→08:02)
[2016-05-18 05:33] LABS: HEMATOCRIT 46.9 % (42-52); MEAN CELL VOLUME 97.1 fL (80-100); MEAN CORPUSCULAR HEMOGLOBIN 33.1 pg (25-34); MEAN CORPUSCULAR HGB CONC 34.1 g/dl (32-36); MEAN PLATELET VOLUME 11.2 fL (7.4-10.4); PLATELET COUNT 170 K/uL (130-400); RED BLOOD COUNT 4.83 M/uL (4.7-6.1); WHITE BLOOD COUNT 17.65 K/uL (4.8-10.8)
[2016-05-18 06:16] LABS: BUN/CREATININE RATIO 19.2 (10-20); CALCIUM 8.7 mg/dl (8.5-10.1); CREATININE 0.61 mg/dl (0.60-1.40); POTASSIUM 3.9 mmol/L (3.5-5.1)
[2016-05-18] MEDS: PIPERACILL/TAZOBAC IV 3.375 GM in DEXTROSE 5% 100ML 100 ML IV SCH ×3 (06:32→19:48)
[2016-05-18 07:44] VITALS: BP 182/69; PULSE 44; TEMP 36.5; O2SAT 97
[2016-05-18] MEDS: DEXAMETHASONE INJ 4 MG in SYRINGE 0 ML IV SCH (07:52)
[2016-05-18] MEDS: LORAZEPAM 0.5 MG TAB PO SCH ×3 (07:52→19:48)
[2016-05-18] MEDS: LEVETIRACETAM 500 MG TAB PO SCH ×2 (07:53→19:48)
[2016-05-18] MEDS: FAMOTIDINE 20 MG TAB PO SCH ×2 (07:53→19:48)
[2016-05-18] MEDS: ROSUVASTATIN CALCIUM 5 MG TAB PO SCH (07:54)
[2016-05-18] MEDS: ASPIRIN 81 MG ECTAB PO SCH (07:54)
[2016-05-18] MEDS: MULTIVITAMIN TAB PO SCH (07:54)
[2016-05-18] MEDS: SERTRALINE HCL 100 MG TAB PO SCH (07:54)
[2016-05-18 08:00] VITALS: O2SAT 97
[2016-05-18 10:00] VITALS: BP 168/89; PULSE 45
--- NOTE | 2016-05-18 12:24 | DIAGNOSTIC IMAGING REPORT ---
MODIFIED BARIUM SWALLOW CLINICAL HISTORY: Possible aspiration pneumonia. COMPARISON STUDY: No previous studies for comparison. FLUOROSCOPY TIME: 2.8 minutes. FINDINGS: There was minimal tracheal aspiration with thin liquids as well as minimal aspiration with swallows of nectar thick liquids. There was no aspiration with pudding or crackers with paste. Premature spillage was noted. IMPRESSION: 1. Several episodes of minimal tracheal aspiration with thin liquids and nectar thick liquids, as described above. No aspiration with pudding or crackers with paste. 2. Full recommendations by speech pathology to follow. Electronically signed by: Timur Bronson M.D. 05/18/2016 12:23 PM Dictated Date/Time: 05/18/2016 12:15 PM
--- NOTE | 2016-05-18 14:18 | Hospitalist Progress Note ---
Hospitalist Progress Note Date of Service May 18, 2016. (Nancy España PA-C) Subjective Pt evaluation today including: conversation w/ patient, conversation w/ family , physical exam, chart review, lab review, review of inpatient medication list Patient has no complaints. He is resting in bed. It is difficult to assess him given his history of aphasia. According to the , he has had increased difficulty with his words fairly acutely that was noticed 2 days ago. He typically is able to communicate fairly well with her. He has not been able to get out many words. No reported cough. The patient is able to tell me that he does not have a headache, chest pain or shortness of breath. No abdominal pain. Additional Comments: 6 system review negative. Please see pertinent positives in the history of present illness section. (Nancy España PA-C) Objective Vital Signs Date Time Temp Pulse Resp B/P Pulse Ox O2 Delivery O2 Flow Rate FiO2 05/18/16 10:00 45 168/89 05/18/16 08:00 97 Nasal Cannula 3.0 05/18/16 07:44 36.5 44 20 182/69 97 Nasal Cannula 3.0 05/18/16 00:00 Room Air 05/17/16 23:58 44 20 176/74 05/17/16 23:33 36.7 38 20 181/74 95 Nasal Cannula 2.0 05/17/16 16:10 93 Nasal Cannula 2.0 05/17/16 15:22 36.4 46 18 135/70 96 Nasal Cannula 3.0 (Nancy España PA-C) Physical Exam General Appearance: + mild distress (mild respiratory distress. Sleeping in bed.) Neck: no JVD Respiratory/Chest: + pertinent finding (decreased breath sounds at the bases bilaterally. No significant wheezing.) Cardiovascular: regular rate, rhythm Abdomen: normal bowel sounds, non tender, soft Extremities: non-tender, no pedal edema Neurologic/Psychiatric: + pertinent finding (aphasia noted. Is able to follow some commands. Right-sided weakness again noted.) Skin: warm/dry (Nancy España PA-C) Laboratory Results Last 24 Hours Test 05/17/16 17:34 05/18/16 05:25 Vancomycin Level Trough 11.9 mcg/ml White Blood Count 17.65 K/uL Red Blood Count 4.83 M/uL Hemoglobin 16.0 g/dL Hematocrit 46.9 % Mean Corpuscular Volume 97.1 fL Mean Corpuscular Hemoglobin 33.1 pg Mean Corpuscular Hemoglobin Concent 34.1 g/dl RDW Standard Deviation 51.4 fL RDW Coefficient of Variation 14.4 % Platelet Count 170 K/uL Mean Platelet Volume 11.2 fL Sodium Level 145 mmol/L Potassium Level 3.9 mmol/L Chloride Level 109 mmol/L Carbon Dioxide Level 25 mmol/L Anion Gap 11.0 mmol/L Blood Urea Nitrogen 12 mg/dl Creatinine 0.61 mg/dl Est Creatinine Clear Calc Drug Dose 134.7 ml/min Estimated GFR () 118.1 Estimated GFR (Non- 101.9 BUN/Creatinine Ratio 19.2 Random Glucose 119 mg/dl Calcium Level 8.7 mg/dl (Nancy España PA-C) Assessment and Plan 70-year-old male with a history of chronic seizures and astrocytoma presents the ED today with a breakthrough seizure this morning resulting in a fall. No injuries noted. CT of the head shows no new changes. Chest x-ray reveals likely pneumonia at the left base. [id number] versus possible aspiration pneumonia given history of seizure -We will discontinue the vancomycin and Levaquin. Keep Zosyn on board. -Follow-up swallow evaluation -Continue O2 -Repeat chest x-ray in the morning 2 view -blood cx, sputum cx ? Acutely worsening aphasia-? secondary to infection vs new neuro cause -MRI brain r/o new CVA Breakthrough seizure-controlled with one dose of Keppra 500 mg IV in ER, cerebral edema remains unchanged -stable no further seizures -DC IV Decadron. 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 Discussed with Nancy España PAC and agree with findings and plan as documented in the note. Any exceptions or clarifications are listed here: None PT has some slurring of speech states is similar in past after seizure even at this prolonged time, speech eval however feels is aspiration risk vss neuro with slurred speech and weakened right arm and leg 3.5 Will re image brain to eval for possible small stroke aspiration precautions and continue antibiotics for possible aspiration pneumonia Documented By: Elliot Mejía (Elliot Mejía M.D.)
[2016-05-18 15:01] VITALS: BP 107/68; PULSE 74; TEMP 36.5; O2SAT 96
--- NOTE | 2016-05-18 18:29 | DIAGNOSTIC IMAGING REPORT ---
MRI OF THE BRAIN WITHOUT AND WITH IV CONTRAST CLINICAL HISTORY: Astrocytoma, change in speech. COMPARISON STUDY: Head CT dated May 16, 2016, MRI the brain dated 03/18/2016 TECHNIQUE: MRI of the brain was performed from the vertex to the skull base utilizing various T1 and T2 weighted sequences. Following the IV administration of 10 mL of Gadavist contrast, additional enhanced images were obtained. FINDINGS: Sagittal T1, axial diffusion, proton density and T2 weighted axial, coronal FLAIR, and pre and post axial T1-weighted images were acquired. These were supplemented with post gadolinium coronal T1 weighted images. There is a persistent 3 cm left temporal lobe mass with surrounding vasogenic edema. There is a new enhancing deep left parietal lobe mass abutting the posterior aspect of the left lateral ventricle with secondary vasogenic edema. Diffusion-weighted images reveal foci of increased signal, likely secondary to neoplasm although I cannot exclude an area of infarction involving the left centrum semiovale There is no evidence of ventricular dilatation. Proton density T2-weighted and FLAIR images reveal vasogenic edema adjacent to the left temporal and parietal lobe masses. There is also unexplained increased FLAIR signal within the left medial parietal vertex. There are no abnormal flow voids. Inflammatory changes are present within the paranasal sinuses. IMPRESSION: 1. Persistent left temporal lobe mass with surrounding vasogenic edema 2. Interval development of a 24 mm mass within the deep left parietal white matter abutting the left lateral ventricle. This is consistent with a new neoplastic focus. There is surrounding iatrogenic edema. 3. Foci of acute water diffusion consistent with neoplasm. Additional areas of reticular water diffusion within the left centrum semiovale, likely represent additional areas of neoplasm although an infarct could potentially appear similar 4. No evidence of hydrocephalus 5. No evidence of significant midline shift Electronically signed by: Wellington Doss M.D. 05/18/2016 6:28 PM Dictated Date/Time: 05/18/2016 6:20 PM
[2016-05-18] MEDS: TAMSULOSIN HCL 0.4 MG CAP PO SCH (19:48)
[2016-05-18] MEDS: DEXAMETHASONE 4 MG TAB PO SCH (19:48)
[2016-05-18] MEDS: ENOXAPARIN 40 MG/0.4 ML SYR SQ SCH (19:49)
[2016-05-18] MEDS ORDERED: VANCOMYCIN TROUGH SCH (23:30)
[2016-05-19 00:03] VITALS: BP 158/82; PULSE 60; TEMP 36.7; O2SAT 97
[2016-05-19] MEDS: PIPERACILL/TAZOBAC IV 3.375 GM in DEXTROSE 5% 100ML 100 ML IV SCH ×3 (04:02→20:04)
[2016-05-19 05:59] LABS: HEMATOCRIT 46.8 % (42-52); MEAN CELL VOLUME 97.5 fL (80-100); MEAN CORPUSCULAR HEMOGLOBIN 33.1 pg (25-34); MEAN PLATELET VOLUME 11.4 fL (7.4-10.4); PLATELET COUNT 189 K/uL (130-400); WHITE BLOOD COUNT 15.81 K/uL (4.8-10.8)
[2016-05-19 06:23] LABS: BUN/CREATININE RATIO 36.3 (10-20); CALCIUM 8.4 mg/dl (8.5-10.1); CREATININE 0.59 mg/dl (0.60-1.40)
[2016-05-19] MEDS: LORAZEPAM 0.5 MG TAB PO SCH ×3 (07:41→19:46)
[2016-05-19] MEDS: DEXAMETHASONE 4 MG TAB PO SCH (07:43)
[2016-05-19] MEDS: ROSUVASTATIN CALCIUM 5 MG TAB PO SCH (07:44)
[2016-05-19] MEDS: SERTRALINE HCL 100 MG TAB PO SCH (07:44)
[2016-05-19] MEDS: ASPIRIN 81 MG ECTAB PO SCH (07:44)
[2016-05-19] MEDS: LEVETIRACETAM 500 MG TAB PO SCH ×2 (07:44→19:47)
[2016-05-19] MEDS: MULTIVITAMIN TAB PO SCH (07:44)
[2016-05-19] MEDS: FAMOTIDINE 20 MG TAB PO SCH ×2 (07:45→19:47)
[2016-05-19 08:00] VITALS: O2SAT 96
[2016-05-19 08:02] VITALS: BP 178/88; PULSE 55; TEMP 36.5
--- NOTE | 2016-05-19 08:38 | Progress Note ---
Subjective Date of Service: May 19, 2016. Subjective this pt remains with aphasia, and right sided weakness little improvement since admission, speech concerned with aspiration to point of nectar thick liquids is at bedside and still interested in taking home Problem List Medical Problems: (1) Altered mental status Status: Acute (2) Aphasia Status: Acute (3) Aphasia Status: Acute (4) Astrocytoma Status: Acute (5) Bilateral pulmonary embolism Status: Acute (6) Brain tumor Status: Acute (7) Constipation Status: Acute (8) Difficulty with speech Status: Acute (9) Fever Status: Acute (10) Leg pain, left Status: Acute (11) No history of seizures Status: Chronic (12) Partial seizure Status: Acute (13) Pneumonia Status: Acute (14) Right arm weakness Status: Acute (15) Right arm weakness Status: Acute (16) Seizure Status: Acute (17) SOB (shortness of breath) Status: Acute (18) Vasogenic brain edema Status: Acute (19) Vasogenic brain edema Status: Acute Review of Systems Constitutional: + fatigue, + weakness, No chills, No fever Respiratory: + cough, No shortness of breath, No sputum Cardiac: No chest pain, No edema Abdomen: No diarrhea, No nausea, No pain, No vomiting Neurologic: + balance problems, + paralysis, + weakness Objective Vital Signs Date Time Temp Pulse Resp B/P Pulse Ox O2 Delivery O2 Flow Rate FiO2 05/19/16 08:02 36.5 55 16 178/88 Room Air 05/19/16 00:03 36.7 60 18 158/82 97 Nasal Cannula 3.0 05/19/16 00:00 Nasal Cannula 3.0 05/18/16 16:00 Nasal Cannula 3.0 05/18/16 15:01 36.5 74 18 107/68 96 Nasal Cannula 3.0 05/18/16 10:00 45 168/89 Physical Exam General Appearance: WD/WN, + mild distress Neck: supple, no JVD Respiratory/Chest: chest non-tender, no respiratory distress, + decreased breath sounds Cardiovascular: regular rate, rhythm, no murmur Abdomen: normal bowel sounds, non tender, soft Neurologic/Psychiatric: alert, + aphasia, + motor weakness, + disoriented Laboratory Results Last 24 Hours Test 05/19/16 05:05 White Blood Count 15.81 K/uL Red Blood Count 4.80 M/uL Hemoglobin 15.9 g/dL Hematocrit 46.8 % Mean Corpuscular Volume 97.5 fL Mean Corpuscular Hemoglobin 33.1 pg Mean Corpuscular Hemoglobin Concent 34.0 g/dl RDW Standard Deviation 51.4 fL RDW Coefficient of Variation 14.5 % Platelet Count 189 K/uL Mean Platelet Volume 11.4 fL Sodium Level 144 mmol/L Potassium Level 4.0 mmol/L Chloride Level 108 mmol/L Carbon Dioxide Level 26 mmol/L Anion Gap 10.0 mmol/L Blood Urea Nitrogen 21 mg/dl Creatinine 0.59 mg/dl Est Creatinine Clear Calc Drug Dose 139.3 ml/min Estimated GFR () 119.7 Estimated GFR (Non- 103.3 BUN/Creatinine Ratio 36.3 Random Glucose 99 mg/dl Calcium Level 8.4 mg/dl Assessment and Plan 70-year-old male with a history of chronic seizures and astrocytoma presents the ED with a breakthrough seizure. Repeat MRI suggests new tumor focus that maybe explaining seizure [id number] versus possible aspiration pneumonia Zosyn can transition to augmentin at discharge Speech / swallow evaluation video swallow study suggests need for nectar thick Astrocytoma, MRI suggests further tumor expansion, did discuss with oncology at [facility] [place] velasquez, states the periventricular mass was seen at [facility] [place] earlier, recommends to continue steroids as chemotherapy begins to work, and continue decadron Breakthrough seizure-controlled with one dose of Keppra 500 mg IV in ER, Decadron Keppra 2000 mg po BID( this was most recent change by Michelle) lamotrigine 100 mg po BID Depression sertraline 100 mg daily BPH tamsulosin 0.4 mg daily DVT prophylaxis-Lovenox 40 mg subQ daily -LEVEL I FULL CODE
[2016-05-19] MEDS: DEXAMETHASONE INJ 6 MG in SYRINGE 0 ML IV SCH ×3 (13:59→23:58)
[2016-05-19 15:05] VITALS: BP 153/83; PULSE 71; TEMP 37.2; O2SAT 94
[2016-05-19] MEDS: TAMSULOSIN HCL 0.4 MG CAP PO SCH (19:46)
[2016-05-19] MEDS: ENOXAPARIN 40 MG/0.4 ML SYR SQ SCH (19:46)
[2016-05-20 00:37] VITALS: BP 151/91; PULSE 50; TEMP 36.3; O2SAT 92
[2016-05-20] MEDS: PIPERACILL/TAZOBAC IV 3.375 GM in DEXTROSE 5% 100ML 100 ML IV SCH ×2 (03:35→11:55)
[2016-05-20] MEDS: DEXAMETHASONE INJ 6 MG in SYRINGE 0 ML IV SCH ×2 (05:51→11:53)
[2016-05-20 05:59] LABS: MEAN CELL VOLUME 96.8 fL (80-100); MEAN CORPUSCULAR HEMOGLOBIN 32.9 pg (25-34); MEAN PLATELET VOLUME 11.3 fL (7.4-10.4); PLATELET COUNT 196 K/uL (130-400); RED BLOOD COUNT 4.96 M/uL (4.7-6.1); WHITE BLOOD COUNT 15.13 K/uL (4.8-10.8)
[2016-05-20 06:29] LABS: BUN/CREATININE RATIO 27.2 (10-20); CALCIUM 8.6 mg/dl (8.5-10.1); CREATININE 0.62 mg/dl (0.60-1.40)
[2016-05-20 07:21] VITALS: BP 177/87; PULSE 52; TEMP 36.7; O2SAT 96
[2016-05-20 08:00] VITALS: O2SAT 95
[2016-05-20] MEDS: LORAZEPAM 0.5 MG TAB PO SCH ×2 (08:19→14:10)
[2016-05-20] MEDS: ROSUVASTATIN CALCIUM 5 MG TAB PO SCH (08:20)
[2016-05-20] MEDS: MULTIVITAMIN TAB PO SCH (08:21)
[2016-05-20] MEDS: SERTRALINE HCL 100 MG TAB PO SCH (08:22)
[2016-05-20] MEDS: FAMOTIDINE 20 MG TAB PO SCH (08:22)
[2016-05-20] MEDS: LEVETIRACETAM 500 MG TAB PO SCH (08:26)
[2016-05-20] MEDS: ASPIRIN 81 MG ECTAB PO SCH (08:26)
[2016-05-20 10:51] VITALS: BP 114/73; PULSE 61; TEMP 36.4; O2SAT 96
[2016-05-20] MEDS ORDERED: DXM/4 PO ×2 (13:34→17:03)
[2016-05-20] MEDS ORDERED: AMOX875T PO (13:34)
[2016-05-20] MEDS ORDERED: LEVE500T13 PO (13:34)
--- NOTE | 2016-05-20 13:43 | Discharge Instructions ---
Discharge Instructions Admission Reason for Admission: Pneumonia Discharge Discharge Diagnosis / Problem: breakthrough seizure, PNA Discharge Goals Goal(s): Improve function, Diagnostic testing, Therapeutic intervention Activity Recommendations Activity Limitations: as noted below Exercise/Sports Limitations: as tolerated . Instructions / Follow-Up Instructions / Follow-Up You have been treated in the hospital for a breakthrough seizure and pneumonia. It is possible that this pneumonia is due to aspiration. The following changes/additions have been made to your medications: -Keppra has been increased to 2000 mg twice daily -Decadron has been increased to 4 mg 4 times daily -Augmentin 875 mg to be taken for an additional 6 days to complete a ten-day course of antibiotics for aspiration pneumonia It is recommended that you thicken all liquids to a nectar thick consistency Diet should be soft (Dental soft) No straws Please follow-up with your primary care physician within one week Please follow-up with your oncologist within 1 month Return to the emergency department if you have any of the following symptoms: -Fever of 102F or greater -Persistent vomiting - Persistent diarrhea -Lethargy -Chest pain -Shortness of breath -Worsening pain -New focal deficits DISCHARGE SUMMARY FROM 05/20 70-year-old male with a history of chronic seizures and astrocytoma presents the ED with a breakthrough seizure this morning resulting in a fall. Chest x- ray reveals likely pneumonia at the left base. [id number] versus possible aspiration pneumonia given history of seizure -Initially, the patient was started on broad-spectrum antibiotics with vancomycin, Levaquin and Zosyn -MRSA swab done-neg -swallow eval done-aspiration noted with thin liquids -Levaquin and vanc discontinued -The patient continued with Zosyn for poss aspiration/Hospital acquired PNA -converted to Augmentin upon d/c for a total of 10 day coverage -Recommend thickening liquids to nectar thick consistency. Dental soft diet. No straws. ? Acutely worsening aphasia on 05/18-? secondary to infection vs new neuro cause- improved -MRI brain performed. Showed a new lesion. This was discussed with the patient 's oncologist at [facility], who knows about this lesion. It was just noted to be new when compared to imaging done here at [facility]. Breakthrough seizure-controlled with one dose of Keppra 500 mg IV in ER -stable no further seizures -Patient's oncologist recommended increasing Decadron. His Decadron was increased to 6 mg IV q 6 hr . Patient did seem to have a fairly good response to this. 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 Persistent left temporal lobe mass with surrounding vasogenic edema 2. Interval development of a 24 mm mass within the deep left parietal white matter abutting the left lateral ventricle. This is consistent with a new neoplastic focus. There is surrounding iatrogenic edema. 3. Foci of acute water diffusion consistent with neoplasm. Additional areas of reticular water diffusion within the left centrum semiovale, likely represent additional areas of neoplasm although an infarct could potentially appear similar 4. No evidence of hydrocephalus 5. No evidence of significant midline shift Video swallow-aspiration noted Pending Studies Studies pending at discharge: no Medical Emergencies . Who to Call and When: Medical Emergencies: If at any time you feel your situation is an emergency, please call 911 immediately. . Non-Emergent Contact Non-Emergency issues call your: Primary Care Provider . . "Provider Documentation" section prepared by Nancy España. VTE Core Measure Inpt VTE Proph given/why not?: Enoxaparin (Lovenox)GALI, TPurnimaEAmbrosio Pantoja, SCD's
[2016-05-20 13:51] VITALS: BP 114/73; PULSE 61; TEMP 36.4; O2SAT 96
--- NOTE | 2016-05-20 14:11 | Hospitalist Progress Note ---
Hospitalist Progress Note Date of Service May 20, 2016. Subjective Pt evaluation today including: conversation w/ patient, conversation w/ family , physical exam, chart review, lab review, review of studies, review of inpatient medication list Patient feeling good today. Denies pain. No chest pain, shortness of breath or fever. Aphasia improved today. Additional Comments: 6 system review negative. Please see pertinent positives in the history of present illness section. Objective Vital Signs Date Time Temp Pulse Resp B/P Pulse Ox O2 Delivery O2 Flow Rate FiO2 05/20/16 10:51 36.4 61 24 114/73 96 Nasal Cannula 3.0 05/20/16 08:00 95 Nasal Cannula 3.0 05/20/16 07:21 36.7 52 22 177/87 96 Nasal Cannula 3.0 05/20/16 00:37 36.3 50 20 151/91 92 Nasal Cannula 3.0 05/20/16 00:05 Nasal Cannula 3.0 05/19/16 16:00 Nasal Cannula 3.0 05/19/16 15:05 37.2 71 20 153/83 94 Room Air Physical Exam General Appearance: no apparent distress Neck: no JVD Respiratory/Chest: + pertinent finding (few crackles at the bases bilaterally. No wheezing.) Cardiovascular: regular rate, rhythm Abdomen: normal bowel sounds, non tender, soft Extremities: non-tender, no pedal edema Neurologic/Psychiatric: alert, + pertinent finding (aphasia seems to be improved today. Right-sided weakness again noted.) Skin: warm/dry Laboratory Results Last 24 Hours Test 05/20/16 05:25 White Blood Count 15.13 K/uL Red Blood Count 4.96 M/uL Hemoglobin 16.3 g/dL Hematocrit 48.0 % Mean Corpuscular Volume 96.8 fL Mean Corpuscular Hemoglobin 32.9 pg Mean Corpuscular Hemoglobin Concent 34.0 g/dl RDW Standard Deviation 51.4 fL RDW Coefficient of Variation 14.4 % Platelet Count 196 K/uL Mean Platelet Volume 11.3 fL Sodium Level 143 mmol/L Potassium Level 4.0 mmol/L Chloride Level 109 mmol/L Carbon Dioxide Level 23 mmol/L Anion Gap 11.0 mmol/L Blood Urea Nitrogen 17 mg/dl Creatinine 0.62 mg/dl Est Creatinine Clear Calc Drug Dose 132.5 ml/min Estimated GFR () 117.3 Estimated GFR (Non- 101.2 BUN/Creatinine Ratio 27.2 Random Glucose 118 mg/dl Calcium Level 8.6 mg/dl Assessment and Plan 70-year-old male with a history of chronic seizures and astrocytoma presents the ED with a breakthrough seizure this morning resulting in a fall. Chest x- ray reveals likely pneumonia at the left base. [id number] versus possible aspiration pneumonia given history of seizure -Initially, the patient was started on broad-spectrum antibiotics with vancomycin, Levaquin and Zosyn -MRSA swab done-neg -swallow eval done-aspiration noted with thin liquids -Levaquin and vanc discontinued -Continue Zosyn -Augmentin upon d/c for a total of 10 day coverage -Recommend thickening liquids to nectar thick consistency. Dental soft diet. No straws. ? Acutely worsening aphasia on 05/18-? metabolic encephalopathy secondary to infection vs new neuro cause-improved -MRI brain performed. Showed a new lesion. This was discussed with the patient 's oncologist at [facility], who knows about this lesion. It was just noted to be new when compared to imaging done here at [facility]. Breakthrough seizure-controlled with one dose of Keppra 500 mg IV in ER -stable no further seizures -Patient's oncologist recommended increasing Decadron. His Decadron was increased to 6 mg IV q 6 hr . Patient did seem to have a fairly good response to this. 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
[2016-05-20] MEDS ORDERED: LORA-741 PO (17:03)
--- NOTE | 2016-05-20 17:08 | Progress Note ---
Subjective Date of Service: May 20, 2016. Problem List Medical Problems: (1) Altered mental status Status: Acute (2) Aphasia Status: Acute (3) Aphasia Status: Acute (4) Astrocytoma Status: Acute (5) Bilateral pulmonary embolism Status: Acute (6) Brain tumor Status: Acute (7) Constipation Status: Acute (8) Difficulty with speech Status: Acute (9) Fever Status: Acute (10) Leg pain, left Status: Acute (11) No history of seizures Status: Chronic (12) Partial seizure Status: Acute (13) Pneumonia Status: Acute (14) Right arm weakness Status: Acute (15) Right arm weakness Status: Acute (16) Seizure Status: Acute (17) SOB (shortness of breath) Status: Acute (18) Vasogenic brain edema Status: Acute (19) Vasogenic brain edema Status: Acute Objective Vital Signs Date Time Temp Pulse Resp B/P Pulse Ox O2 Delivery O2 Flow Rate FiO2 05/20/16 13:51 36.4 61 24 96 Room Air 05/20/16 10:51 36.4 61 24 114/73 96 Nasal Cannula 3.0 05/20/16 08:00 95 Nasal Cannula 3.0 05/20/16 07:21 36.7 52 22 177/87 96 Nasal Cannula 3.0 05/20/16 00:37 36.3 50 20 151/91 92 Nasal Cannula 3.0 05/20/16 00:05 Nasal Cannula 3.0 Laboratory Results Last 24 Hours Test 05/20/16 05:25 White Blood Count 15.13 K/uL Red Blood Count 4.96 M/uL Hemoglobin 16.3 g/dL Hematocrit 48.0 % Mean Corpuscular Volume 96.8 fL Mean Corpuscular Hemoglobin 32.9 pg Mean Corpuscular Hemoglobin Concent 34.0 g/dl RDW Standard Deviation 51.4 fL RDW Coefficient of Variation 14.4 % Platelet Count 196 K/uL Mean Platelet Volume 11.3 fL Sodium Level 143 mmol/L Potassium Level 4.0 mmol/L Chloride Level 109 mmol/L Carbon Dioxide Level 23 mmol/L Anion Gap 11.0 mmol/L Blood Urea Nitrogen 17 mg/dl Creatinine 0.62 mg/dl Est Creatinine Clear Calc Drug Dose 132.5 ml/min Estimated GFR () 117.3 Estimated GFR (Non- 101.2 BUN/Creatinine Ratio 27.2 Random Glucose 118 mg/dl Calcium Level 8.6 mg/dl Assessment and Plan 70-year-old male with a history of chronic seizures and astrocytoma presents the ED with a breakthrough seizure. Repeat MRI suggests new tumor focus that maybe explaining seizure [id number] versus possible aspiration pneumonia Zosyn can transition to augmentin at discharge 70 M with progressive Astrocytoma and seizures, now aspiration pneumonia and need for nectar thick liquids VSS exam shows some improvement after decadron, still weak and dysarthric Aspiration pneumonia, zosyn wll transition to augmenting and aspiration precautions Speech / swallow evaluation video swallow study suggests need for nectar thick Astrocytoma, MRI suggests further tumor expansion, did discuss with oncology at [facility] [place] DR velasquez, states the periventricular mass was seen at [facility] earlier, recommends to continue steroids as chemotherapy begins to work, and continue decadron Breakthrough seizure-controlled with one dose of Keppra 500 mg IV in ER, Decadron Keppra 2000 mg po BID( this was most recent change by Michelle) lamotrigine 100 mg po BID Depression sertraline 100 mg daily BPH tamsulosin 0.4 mg daily will move to acute rehab to help with speech and right hemipelegia
--- NOTE | 2016-05-26 10:38 | Discharge Summary ---
Discharge Summary Admission Date: May 16, 2016 at 15:17 Discharge Date: May 20, 2016 Discharge Disposition: Rehab Principal Diagnosis: astrocytoma, aspiraton pneumonia Problems/Secondary Diagnoses: (1) No history of seizures Status: Chronic Immunizations: Have You Had Influenza Vaccine: Yes Influenza Vaccine Date: Jan 10, 2015 History of Tetanus Vaccine?: Yes Tetanus Immunization Date: Apr 12, 2011 History of Pneumococcal: Yes Pneumococcal Date: Jan 10, 2015 History of Hepatitis B Vaccine: Unknown Medication Reconciliation New Medications: Amoxicillin & Pot Clavulanate (Augmentin 875-125 mg) 1 Tab Tab 1 TAB PO BID for 6 Days Dexamethasone (Decadron) 4 Mg Tab 4 MG PO QID for 30 Days, TAB this maybe slowly tapered to 12 mg total daily Continued Medications: Acetaminophen (Tylenol) 325 Mg Tab 650 MG PO Q4 PRN for Pain, TAB Albuterol Hfa (Ventolin Hfa) 200 Puffs/42794 Mcg Aers 1 PUFF INH QID PRN for SOB/Wheezing Aspirin (Aspirin Ec) 81 Mg Tab 81 MG PO DAILY Famotidine (Pepcid) 20 Mg Tab 20 MG PO BID, TAB Lamotrigine (Lamictal) 100 Mg Tab 100 MG PO BID, TAB Levetiracetam (Keppra) 500 Mg Tab 2000 MG PO Q12 for 30 Days, #240 TAB (This prescription has been renewed) Lorazepam (Ativan) 0.5 Mg Tab 0.75 MG PO TID, #30 TAB (This prescription has been renewed) Multiple Vitamin (Multivitamin) 1 Tab Tab 1 TAB PO DAILY, TAB Rosuvastatin Calcium (Crestor) 5 Mg Tab 5 MG PO DAILY, TAB Sertraline (Zoloft) 50 Mg Tab 200 MG PO DAILY, TAB Tamsulosin Hcl (Flomax) 0.4 Mg Cap 0.4 MG PO HS, CAP Discontinued Medications: Dexamethasone (Dexamethasone) 4 Mg Tab 4 MG PO BID Discharge Exam Review of Systems: Constitutional: + fatigue, + weakness ENT: + nasal symptoms Physical Exam: General Appearance: WD/WN, + mild distress Neck: supple, no JVD Respiratory/Chest: + decreased breath sounds, + rales Cardiovascular: regular rate, rhythm, no murmur Abdomen / GI: normal bowel sounds, non tender, soft Neurologic/Psychiatric: alert, + motor weakness Hospital Course 70-year-old male with a history of chronic seizures and astrocytoma presents the ED with a breakthrough seizure. Repeat MRI suggests new tumor focus that maybe explaining seizure OWL-[id number] versus possible aspiration pneumonia Zosyn transition to augmentin at discharge need for nectar thick liquids Astrocytoma, MRI suggests further tumor expansion, did discuss with oncology at [facility] DR velasquez, states the periventricular mass was seen at [facility] earlier, recommends to continue steroids as chemotherapy begins to work, and continue decadron Breakthrough seizure-controlled with one dose of Keppra 500 mg IV in ER, Decadron Keppra 2000 mg po BID( this was most recent change by Michelle) lamotrigine 100 mg po BID Depression sertraline 100 mg daily BPH tamsulosin 0.4 mg daily will move to acute rehab to help with speech and right hemipelegia Total Time Spent: Greater than 30 minutes This includes examination of the patient, discharge planning, medication reconciliation, and communication with other providers. Discharge Instructions Please refer to the electronic Patient Visit Report (Discharge Instructions) for additional information.
== END 2016-05-20 17:20 | DRG 178 ==
LOC: ENRESERVTM → CANRESERV → ENRESERVDT → EDBD 11:43 → C.EDB 11:44 → C.4E 15:17
PROVIDERS: ADMIT Hospitalist; ATTEND Hospitalist
DX: J69.0 Pneumonitis due to inhalation of food and vomit (principal); C71.9 Malignant neoplasm of brain, unspecified; J98.11 Atelectasis; F32.9 Major depressive disorder, single episode, unspecified; G40.909 Epilepsy, unspecified, not intractable, without status epilepticus; Z92.21 Personal history of antineoplastic chemotherapy; E78.5 Hyperlipidemia, unspecified; I50.9 Heart failure, unspecified; R47.1 Dysarthria and anarthria; Z66 Do not resuscitate; R32 Unspecified urinary incontinence; N40.1 Benign prostatic hyperplasia with lower urinary tract symptoms

== ENCOUNTER 2016-06-03 21:42 | Inpatient (IN) | payer OTHER, BC ==
[~2016-06-03] VITALS: Ht 177.8 cm; Wt 87.0 kg
[~2016-06-03 21:42] MED LIST changes: +ASPI81TA28 PO; -CALC500C70 PO; -DLN100 PO; +LAMO100T16 PO; -LEVE500T PO; -NITR1CAP32 PO; -PROB1TAB16 PO
[2016-06-03] MEDS ORDERED: ACETAMINOPHEN 325 MG SUPP PR STA (21:55)
--- NOTE | 2016-06-03 22:04 | EMERGENCY ROOM VISIT NOTE ---
History Report prepared by Keny: Scar Pineda Under the Supervision of: Dr. Jaxon Mclain M.D. First contact with patient: 21:48 Chief Complaint: NEURO SYMPTOMS Stated Complaint: FEVER 101.5, MUMBLING, SLURRED SPEECH Nursing Triage Summary: Pt has a brain tumor, d/c today from [facility]. states pt was doing well. "Seems to have had a seizure." Pt not talking, drooling from right side of mouth, weak right arm which is typical after his seizures. Also states pt developed a fever this evening. History of Present Illness The patient is a 70 year old male who presents to the Emergency Room with complaints of a sudden seizure beginning a few hours prior to arrival. As per nurse, the patient's reported the patient was discharged from [facility] today. It is noted the patient has an astrocytoma in his brain. She stated the patient was doing well, but she believes the patient had a seizure today. The noted the patient began experiencing slurred speech and weakness of the right arm. She stated the patient's right arm weakness is typical after his seizures. The noted the patient developed a fever this evening. Source of History: nursing staff Onset: few hours FRAME TRIMMER Position: other (global) Quality: other (seizure) Timing: other (sudden) Associated Symptoms: + fevers, + weakness (right arm) Note: Associated symptoms: slurred speech. Review of Systems See HPI for pertinent positives & negatives. A total of 10 systems reviewed and were otherwise negative. Past Medical & Surgical Medical Problems: (1) Astrocytoma brain tumor (2) Diverticulitis (3) High cholesterol (4) HTN (hypertension) (5) No history of seizures (6) Seizures Family History Cancer Seizures Social History Smoking Status: Never Smoker Alcohol Use: none Drug Use: none Marital Status: Housing Status: lives with significant other Occupation Status: retired Current/Historical Medications Scheduled Aspirin (Aspirin Ec), 81 MG PO DAILY Dexamethasone (Decadron), 4 MG PO QID Famotidine (Pepcid), 20 MG PO BID Lamotrigine (Lamictal), 100 MG PO BID Levetiracetam (Keppra), 2,000 MG PO Q12 Lorazepam (Ativan), 0.75 MG PO TID Multiple Vitamin (Multivitamin), 1 TAB PO DAILY Rosuvastatin Calcium (Crestor), 5 MG PO DAILY Sertraline (Zoloft), 200 MG PO DAILY Tamsulosin Hcl (Flomax), 0.4 MG PO HS Scheduled PRN Acetaminophen (Tylenol), 650 MG PO Q4 PRN for Pain Albuterol Hfa (Ventolin Hfa), 1 PUFF INH QID PRN for SOB/Wheezing Allergies Coded Allergies: No Known Allergies (Unverified , 05/16/16) Physical Exam Vital Signs Date Time Temp Pulse Resp B/P Pulse Ox O2 Delivery O2 Flow Rate FiO2 06/03/16 23:23 37.2 06/03/16 22:14 38.9 06/03/16 21:45 37.1 77 18 150/91 94 Room Air Physical Exam GENERAL: Patient is ill appearing and in mild distress. HEENT: No acute trauma, normocephalic atraumatic, mucous membranes moist, no nasal congestion, no scleral icterus. NECK: No stridor, no adenopathy, no meningismus, trachea is midline. LUNGS: No dyspnea. Clear to auscultation and equal bilaterally. No wheeze, no rhonchi. HEART: Regular rate and rhythm. No murmurs, rubs, gallops appreciated. ABDOMEN: Soft, nontender, bowel sounds positive, no masses appreciated, no peritonitis. BACK: No midline tenderness, no CVA tenderness EXTREMITIES: Dressed wounds over right lower leg. Normal motion all extremities , no cyanosis, no edema. NEUROLOGIC: Confused with stuttering, incomprehensible speech. Not using right arm or leg. SKIN: Warm to touch. No rash, no jaundice, no diaphoresis. Medical Decision & Procedures ER Provider Diagnostic Interpretation: X ray results and stated below per my interpretation and radiologist interpretation. Other radiology results and stated below per my review and radiologist interpretation: CHEST ONE VIEW PORTABLE HISTORY: Altered mental status. COMPARISON: Chest 05/16/2016. FINDINGS: Low lung volumes. Bibasilar linear densities. The heart remains enlarged. Mild central pulmonary vascular congestion without overt edema. No pneumothorax. Trace right pleural effusion. IMPRESSION: 1. Low lung volumes and cardiomegaly persist. 2. Mild pulmonary vascular congestion has improved. 3. Bibasilar densities have also improved. Electronically signed by: Ivan Sue M.D. 06/03/2016 10:[address] CT DOSE: 614.27 mGy.cm HISTORY: Altered mental status. TECHNIQUE: Multiaxial CT images of the head were performed without the use of intravenous contrast. Automated exposure control was utilized for this study. Comparison: Head CT 05/16/2016. Brain MRI 05/18/2016. Findings: Moderate mucosal thickening within the max a sinus is a small fluid level within the left maxillary sinus. This is similar to the prior study. The mastoid air cells are clear. Left temporal bone defect remains unchanged and is likely due to postoperative change. No acute calvarial fractures. Stable partially calcified left temporal lobe lesion. No midline shift, acute infarct, or intracranial hemorrhage identified. The ventricles are stable in size. Mild vasogenic edema within the left periventricular white matter is also unchanged. There is also no significant change in the left parietal periventricular mass which measures 2.4 cm. Impression: 1. Overall, no significant change compared to the prior studies. 2. The left parietal and temporal lobe masses are again noted. 3. Sinus disease as described. Electronically signed by: Ivan Sue M.D. 06/03/2016 10:50 PM Laboratory Results 06/03/16 22:20 Red Blood Count 4.54, Mean Corpuscular Volume 96.7, Mean Corpuscular Hemoglobin 32.6, Mean Corpuscular Hemoglobin Concent 33.7, Mean Platelet Volume 10.6, Neutrophils (%) (Auto) 76.9, Lymphocytes (%) (Auto) 14.7, Monocytes (%) (Auto) 6.3, Eosinophils (%) (Auto) 1.1, Basophils (%) (Auto) 0.2, Neutrophils # (Auto) 8.06, Lymphocytes # (Auto) 1.54, Monocytes # (Auto) 0.66, Eosinophils # (Auto) 0.12, Basophils # (Auto) 0.02 06/03/16 22:20 Test 06/03/16 22:20 06/03/16 22:25 06/03/16 22:42 06/03/16 23:05 White Blood Count 10.48 K/uL (4.8-10.8) Red Blood Count 4.54 M/uL (4.7-6.1) Hemoglobin 14.8 g/dL (14.0-18.0) Hematocrit 43.9 % (42-52) Mean Corpuscular Volume 96.7 fL (80-100) Mean Corpuscular Hemoglobin 32.6 pg (25-34) Mean Corpuscular Hemoglobin Concent 33.7 g/dl (32-36) Platelet Count 129 K/uL (130-400) Mean Platelet Volume 10.6 fL (7.4-10.4) Neutrophils (%) (Auto) 76.9 % Lymphocytes (%) (Auto) 14.7 % Monocytes (%) (Auto) 6.3 % Eosinophils (%) (Auto) 1.1 % Basophils (%) (Auto) 0.2 % Neutrophils # (Auto) 8.06 K/uL (1.4-6.5) Lymphocytes # (Auto) 1.54 K/uL (1.2-3.4) Monocytes # (Auto) 0.66 K/uL (0.11-0.59) Eosinophils # (Auto) 0.12 K/uL (0-0.5) Basophils # (Auto) 0.02 K/uL (0-0.2) RDW Standard Deviation 52.9 fL (36.4-46.3) RDW Coefficient of Variation 14.8 % (11.5-14.5) Immature Granulocyte % (Auto) 0.8 % Immature Granulocyte # (Auto) 0.08 K/uL (0.00-0.02) Prothrombin Time 10.0 SECONDS (9.0-12.0) Prothromb Time International Ratio 0.9 (0.9-1.1) Activated Partial Thromboplast Time 25.4 SECONDS (21.0-31.0) Partial Thromboplastin Ratio 1.0 Anion Gap 8.0 mmol/L (3-11) Est Creatinine Clear Calc Drug Dose 124.8 ml/min Estimated GFR () 115.8 Estimated GFR (Non- 99.9 BUN/Creatinine Ratio 28.4 (10-20) Calcium Level 8.4 mg/dl (8.5-10.1) Total Bilirubin 0.3 mg/dl (0.2-1) Direct Bilirubin < 0.1 mg/dl (0-0.2) Aspartate Amino Transf (AST/SGOT) 14 U/L (15-37) Alanine Aminotransferase (ALT/SGPT) 37 U/L (12-78) Alkaline Phosphatase 80 U/L (45-117) Total Creatine Kinase 32 U/L (39-308) Troponin I < 0.015 ng/ml (0-0.045) Total Protein 5.8 gm/dl (6.4-8.2) Albumin 3.0 gm/dl (3.4-5.0) Bedside Lactic Acid Venous 1.03 mmol/L (0.90-1.70) Urine Color YELLOW Urine Appearance CLEAR (CLEAR) Urine pH 6.0 (4.5-7.5) Urine Specific [place] 1.027 (1.000-1.030) Urine Protein NEG (NEG) Urine Glucose (UA) NEG (NEG) Urine Ketones NEG (NEG) Urine Occult Blood NEG (NEG) Urine Nitrite NEG (NEG) Urine Bilirubin NEG (NEG) Urine Urobilinogen NEG (NEG) Urine Leukocyte Esterase TRACE (NEG) Urine WBC (Auto) 1-5 /hpf (0-5) Urine RBC (Auto) 0-4 /hpf (0-4) Urine Hyaline Casts (Auto) 1-5 /lpf (0-5) Urine Epithelial Cells (Auto) 5-10 /lpf (0-5) Urine Bacteria (Auto) NEG (NEG) Laboratory results as reviewed by me. Medications Administered Medications (Trade) Dose Ordered Sig/Pietro Route Start Time Stop Time Status Last Admin Dose Admin Acetaminophen (Tylenol Supp) 975 mg NOW STAT LA 06/03/16 21:55 06/03/16 21:56 DC 06/03/16 21:55 975 MG ECG Indication: weakness Rate (beats per minute): 62 Rhythm: normal sinus Findings: no acute ischemic change, no ectopy ED Course 2150: The patient was evaluated in room A11B. A complete history and physical exam was performed. 2154: Ordered Acetaminophen 975 mg LA. 2235: The notes the patient was talking normally and was in no distress prior to the seizure. She notes the patient was coughing all day. 224: I spoke to MEY Rod (Hospitalist) about the patient's case, and he will follow the patient for further evaluation. 2307: The patient is still not back to baseline, as per . Medical Decision Differential: Toxicological, Infectious, Stroke, SAH, Trauma, Electrolyte Abnormality, Hypoglycemia, Alcohol Intoxication, Drug Intoxication, Cardiac Abnormality, Sepsis, Meningitis/Encephalitis, Trauma, Excited Delirium, Serotonin Syndrome, Psychiatric, amongst other pathologies entertained. 70 yr old male with known astrocytoma and just released from [facility] this morning. At home doing well though increasing coughing. Had prolonged seizure at home and arrives now febrile with ams and not using right side. Gradually improved though still quite confused. Not nearly back to baseline. He is not candidate for LP though with normal wbc I suspect he may have post seizure fever. Regardless blood cultures were sent for further monitoring. UA clear as is CXR. Stable and maintaining airway. Consults Time Called: 2247 Consulting Physician: MEY Rod (Hospitalist) Returned Call: [phone] I spoke to MEY Rod (Hospitalist) about the patient's case, and he will follow the patient for further evaluation. Impression Primary Impression: Fever Additional Impressions: Altered mental status Seizure Scribe Attestation The scribe's documentation has been prepared under my direction and personally reviewed by me in its entirety. I confirm that the note above accurately reflects all work, treatment, procedures, and medical decision making performed by me. Departure Information Dispostion Being Evaluated By Hospitalist (MEY Rod (Hospitalist)) Referrals Cherry Lange C.R.N.PPurnima (PCP) Problem Qualifiers Primary Impression: Fever Fever type: unspecified Qualified Codes: R50.9 - Fever, unspecified Additional Impressions: Altered mental status Altered mental status type: transient alteration of awareness Qualified Codes : R40.4 - Transient alteration of awareness
--- NOTE | 2016-06-03 22:19 | DIAGNOSTIC IMAGING REPORT ---
CHEST ONE VIEW PORTABLE HISTORY: Altered mental status. COMPARISON: Chest 05/16/2016. FINDINGS: Low lung volumes. Bibasilar linear densities. The heart remains enlarged. Mild central pulmonary vascular congestion without overt edema. No pneumothorax. Trace right pleural effusion. IMPRESSION: 1. Low lung volumes and cardiomegaly persist. 2. Mild pulmonary vascular congestion has improved. 3. Bibasilar densities have also improved. Electronically signed by: Ivan Sue M.D. 06/03/2016 10:17 PM Dictated Date/Time: 06/03/2016 10:16 PM
--- NOTE | 2016-06-03 22:51 | DIAGNOSTIC IMAGING REPORT ---
HEAD CT NONCONTRAST CT DOSE: 614.27 mGy.cm HISTORY: Altered mental status. TECHNIQUE: Multiaxial CT images of the head were performed without the use of intravenous contrast. Automated exposure control was utilized for this study. Comparison: Head CT 05/16/2016. Brain MRI 05/18/2016. Findings: Moderate mucosal thickening within the max a sinus is a small fluid level within the left maxillary sinus. This is similar to the prior study. The mastoid air cells are clear. Left temporal bone defect remains unchanged and is likely due to postoperative change. No acute calvarial fractures. Stable partially calcified left temporal lobe lesion. No midline shift, acute infarct, or intracranial hemorrhage identified. The ventricles are stable in size. Mild vasogenic edema within the left periventricular white matter is also unchanged. There is also no significant change in the left parietal periventricular mass which measures 2.4 cm. Impression: 1. Overall, no significant change compared to the prior studies. 2. The left parietal and temporal lobe masses are again noted. 3. Sinus disease as described. Electronically signed by: Ivan Sue M.D. 06/03/2016 10:50 PM Dictated Date/Time: 06/03/2016 10:43 PM
[2016-06-03 22:55] LABS: ALT/SGPT 37 U/L (12-78); BLOOD UREA NITROGEN 18 mg/dl (7-18); BUN/CREATININE RATIO 28.4 (10-20); CALCIUM 8.4 mg/dl (8.5-10.1); CARBON DIOXIDE 25 mmol/L (21-32); CHLORIDE 109 mmol/L (98-107); CREATININE 0.64 mg/dl (0.60-1.40); GLUCOSE 86 mg/dl (70-99); POTASSIUM 3.9 mmol/L (3.5-5.1); SODIUM 142 mmol/L (136-145)
[2016-06-03 22:57] LABS: BASO % 0.2 %; BASO ABS # 0.02 K/uL (0-0.2); COMPLETE YES; EOS % 1.1 %; HEMATOCRIT 43.9 % (42-52); IG% 0.8 %; LYMPH % 14.7 %; LYMPH ABS # 1.54 K/uL (1.2-3.4); MEAN CELL VOLUME 96.7 fL (80-100); MEAN CORPUSCULAR HEMOGLOBIN 32.6 pg (25-34); MEAN CORPUSCULAR HGB CONC 33.7 g/dl (32-36); MEAN PLATELET VOLUME 10.6 fL (7.4-10.4); MONO % 6.3 %; NEUT % 76.9 %; PLATELET COUNT 129 K/uL (130-400); RED BLOOD COUNT 4.54 M/uL (4.7-6.1); WHITE BLOOD COUNT 10.48 K/uL (4.8-10.8)
[2016-06-03 23:00] LABS: ALKALINE PHOSPHATASE 80 U/L (45-117); AST/SGOT 14 U/L (15-37)
[2016-06-03 23:03] LABS: INR 0.9 (0.9-1.1)
[2016-06-03 23:22] LABS: URINE APPEARANCE CLEAR (CLEAR); URINE BILIRUBIN NEG (NEG); URINE COLOR YELLOW; URINE NITRITE NEG (NEG); URINE SPECIFIC GRAVITY 1.027 (1.000-1.030); UROBILINOGEN NEG (NEG); ZZURINE CULT IF INDIC CATH NO
[2016-06-03 23:29] LABS: MANUAL MICROSCOPIC REQUIRED? NO; REVIEW REQ? NO
[2016-06-04] VITALS (8 sets, daily range): BP systolic 116–161; BP diastolic 64–80; PULSE 51–75; TEMP 36.6–37; O2SAT 92–96; Ht 177.8 cm; Wt 87.0 kg
[2016-06-04 00:28] LABS: INFLUENZA A PCR Neg for Influ A (NEG); INFLUENZA B PCR Neg for Influ B (NEG)
[2016-06-04] MEDS ORDERED: ONDANSETRON INJ 2 MG/ML 2 ML VIAL IV PRN (00:30)
[2016-06-04] MEDS ORDERED: ALBUTEROL HFA 8 GM INHALER INH PRN (00:45)
[2016-06-04] MEDS ORDERED: ACETAMINOPHEN 325 MG TAB PO PRN (00:45)
[2016-06-04] MEDS: NSS + 20MEQ KCL 1000ML 1,000 ML IV SCH ×2 (01:44→13:28)
--- NOTE | 2016-06-04 04:33 | History and Physical ---
History & Physical Date & Time of Service: Jun 04, 2016 at 04:19 Chief Complaint: Astrocytoma Brain Tumor, Seizure Primary Care Physician: Cherry Lange C.R.N.P. History of Present Illness Source: patient, spouse The patient is a 70-year-old male who was most recently in hospital from May 16 through May 20 for pneumonia, and then was transferred to [facility], where he was discharged earlier today. His reports that while she was in another room, and then returned, she saw him curled on the floor a position and contorted. She reports that he had a second seizure later on in the day, that was accompanied by slurred speech, right arm transient weakness, and when he developed a temperature this evening, this prompted her to bring him to the emergency department for assessment. In the emergency department, the patient continued to be confused and unable to respond to simple questions. 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 (6000 cGy, 30 fractions, concurrent temozolamide) Change in mental status expressive aphasia CVA was ruled out Status post seizure MRI revealing hyperintense lesion left insula Stealth stereotactic biopsy 09/20/2014 revealing anaplastic astrocytoma grade 3 Status post completion of combined radiation and chemotherapy 12/21/2014 received 6000 cGy Chemotherapy comprised of temozolomide Admission for seizure disorder and finding of progression of disease Initiation of Avastin chemotherapy Status: Chronic (2) Diverticulitis Status: Resolved (3) High cholesterol Status: Chronic (4) HTN (hypertension) Status: Chronic (5) No history of seizures Status: Chronic (6) Seizures Status: Chronic Family History Cancer Seizures Social History Smoking Status: Never Smoker Smokeless Tobacco Use: No Alcohol Use: none Drug Use: none Marital Status: Housing status: lives with family Occupational Status: retired Immunizations History of Influenza Vaccine: Yes Influenza Vaccine Date: Jan 10, 2015 History of Tetanus Vaccine?: Yes Tetanus Immunization Date: Apr 12, 2011 History of Pneumococcal: Yes Pneumococcal Date: Jan 10, 2015 History of Hepatitis B Vaccine: Unknown Multi-Drug Resistant Organisms History of MDRO: No Allergies Coded Allergies: No Known Allergies (Unverified , 05/16/16) Home Medications Scheduled Aspirin (Aspirin Ec), 81 MG PO DAILY Dexamethasone (Decadron), 4 MG PO QID Famotidine (Pepcid), 20 MG PO BID Lamotrigine (Lamictal), 100 MG PO BID Levetiracetam (Keppra), 2,000 MG PO Q12 Lorazepam (Ativan), 0.75 MG PO TID Multiple Vitamin (Multivitamin), 1 TAB PO DAILY Rosuvastatin Calcium (Crestor), 5 MG PO DAILY Sertraline (Zoloft), 200 MG PO DAILY Tamsulosin Hcl (Flomax), 0.4 MG PO HS Scheduled PRN Acetaminophen (Tylenol), 650 MG PO Q4 PRN for Pain Albuterol Hfa (Ventolin Hfa), 1 PUFF INH QID PRN for SOB/Wheezing Review of Systems His review of systems is severely limited due to his altered mental state. His reports his history as noted above, and states that he has not had any chest pain, shortness of breath, nausea, vomiting, diarrhea or constipation, urinary dysfunction, myalgias or arthralgias, or any other abnormalities prior to her finding him in the post seizure state as noted above. Physical Exam Vital Signs Date Time Temp Pulse Resp B/P Pulse Ox O2 Delivery O2 Flow Rate FiO2 06/04/16 01:18 36.9 51 20 156/74 96 Room Air 06/04/16 00:28 81 18 142/91 98 Room Air 06/03/16 23:23 37.2 06/03/16 22:14 38.9 06/03/16 21:45 37.1 77 18 150/91 94 Room Air The patient is awake, disoriented, normocephalic and atraumatic, lying in bed and in no acute distress. HEENT--PERRL, EOMI, mucous membranes and oropharynx dry. Neck--supple, no JVD or bruits, thyroid normal, trachea midline, no adenopathy. Heart--bradycardic, no extra beats, no murmurs, rubs or gallops. Lungs--diminished at the bases bilaterally, no respiratory distress, no accessory muscle use. Abdomen--normal bowel sounds and soft, nontender and nondistended, no hernias or masses, no organomegaly. Extremities--no cyanosis, clubbing or edema. There are good distal pulses b/l. Dermatologic--normal skin turgor, normal color, warm and dry, no abnormal lymph nodes, no rash. Neurologic--cranial nerves II through XII grossly intact, motor and sensory examination normal. Rheumatologic--moves all extremities equally well. Psychiatric--disoriented. Diagnostics Laboratory Results Results Past 24 Hours Test 06/03/16 22:20 06/03/16 22:25 06/03/16 22:42 06/03/16 23:05 Range/Units White Blood Count 10.48 4.8-10.8 K/uL Red Blood Count 4.54 4.7-6.1 M/uL Hemoglobin 14.8 14.0-18.0 g/dL Hematocrit 43.9 42-52 % Mean Corpuscular Volume 96.7 80-100 fL Mean Corpuscular Hemoglobin 32.6 25-34 pg Mean Corpuscular Hemoglobin Concent 33.7 32-36 g/dl Platelet Count 129 130-400 K/uL Mean Platelet Volume 10.6 7.4-10.4 fL Neutrophils (%) (Auto) 76.9 % Lymphocytes (%) (Auto) 14.7 % Monocytes (%) (Auto) 6.3 % Eosinophils (%) (Auto) 1.1 % Basophils (%) (Auto) 0.2 % Neutrophils # (Auto) 8.06 1.4-6.5 K/uL Lymphocytes # (Auto) 1.54 1.2-3.4 K/uL Monocytes # (Auto) 0.66 0.11-0.59 K/uL Eosinophils # (Auto) 0.12 0-0.5 K/uL Basophils # (Auto) 0.02 0-0.2 K/uL RDW Standard Deviation 52.9 36.4-46.3 fL RDW Coefficient of Variation 14.8 11.5-14.5 % Immature Granulocyte % (Auto) 0.8 % Immature Granulocyte # (Auto) 0.08 0.00-0.02 K/uL Prothrombin Time 10.0 9.0-12.0 SECONDS Prothromb Time International Ratio 0.9 0.9-1.1 Activated Partial Thromboplast Time 25.4 21.0-31.0 SECONDS Partial Thromboplastin Ratio 1.0 Sodium Level 142 136-145 mmol/L Potassium Level 3.9 3.5-5.1 mmol/L Chloride Level 109 98-107 mmol/L Carbon Dioxide Level 25 21-32 mmol/L Anion Gap 8.0 3-11 mmol/L Blood Urea Nitrogen 18 7-18 mg/dl Creatinine 0.64 0.60-1.40 mg/dl Est Creatinine Clear Calc Drug Dose 124.8 ml/min Estimated GFR () 115.8 Estimated GFR (Non- 99.9 BUN/Creatinine Ratio 28.4 10-20 Random Glucose 86 70-99 mg/dl Calcium Level 8.4 8.5-10.1 mg/dl Total Bilirubin 0.3 0.2-1 mg/dl Direct Bilirubin < 0.1 0-0.2 mg/dl Aspartate Amino Transf (AST/SGOT) 14 15-37 U/L Alanine Aminotransferase (ALT/SGPT) 37 12-78 U/L Alkaline Phosphatase 80 45-117 U/L Total Creatine Kinase 32 39-308 U/L Troponin I < 0.015 0-0.045 ng/ml Total Protein 5.8 6.4-8.2 gm/dl Albumin 3.0 3.4-5.0 gm/dl Bedside Lactic Acid Venous 1.03 0.90-1.70 mmol/L Influenza Type A (RT-PCR) Neg for Influ A NEG Influenza Type B (RT-PCR) Neg for Influ B NEG Urine Color YELLOW Urine Appearance CLEAR CLEAR Urine pH 6.0 4.5-7.5 Urine Specific [place] 1.027 1.000-1.030 Urine Protein NEG NEG Urine Glucose (UA) NEG NEG Urine Ketones NEG NEG Urine Occult Blood NEG NEG Urine Nitrite NEG NEG Urine Bilirubin NEG NEG Urine Urobilinogen NEG NEG Urine Leukocyte Esterase TRACE NEG Urine WBC (Auto) 1-5 0-5 /hpf Urine RBC (Auto) 0-4 0-4 /hpf Urine Hyaline Casts (Auto) 1-5 0-5 /lpf Urine Epithelial Cells (Auto) 5-10 0-5 /lpf Urine Bacteria (Auto) NEG NEG Microbiology Results 06/04/16 Blood Culture, Received Pending 06/03/16 Blood Culture, Received Pending Diagnostic Radiology Patient Name: SUSAN TRAN Unit Number: [id number] Dictated: 06/03/162242 Transcribed: 06/03/162242 PAPierre Printed Date/Time: [~ rep prt dt]/[~ rep prt tm] [~ rep ct labl] - [~ rep ct ivnm] [facility] [place] [address] Dictated: 06/03/162242 Transcribed: 06/03/162242 ISRAEL Printed Date/Time: [~ rep prt dt]/[~ rep prt tm] [~ rep ct labl] - [~ rep ct ivnm] [~ rep ct add3]] HEAD CT NONCONTRAST CT DOSE: 614.27 mGy.cm HISTORY: Altered mental status. TECHNIQUE: Multiaxial CT images of the head were performed without the use of intravenous contrast. Automated exposure control was utilized for this study. Comparison: Head CT 05/16/2016. Brain MRI 05/18/2016. Findings: Moderate mucosal thickening within the max a sinus is a small fluid level within the left maxillary sinus. This is similar to the prior study. The mastoid air cells are clear. Left temporal bone defect remains unchanged and is likely due to postoperative change. No acute calvarial fractures. Stable partially calcified left temporal lobe lesion. No midline shift, acute infarct, or intracranial hemorrhage identified. The ventricles are stable in size. Mild vasogenic edema within the left periventricular white matter is also unchanged. There is also no significant change in the left parietal periventricular mass which measures 2.4 cm. Impression: 1. Overall, no significant change compared to the prior studies. 2. The left parietal and temporal lobe masses are again noted. 3. Sinus disease as described. Electronically signed by: Ivan Sue M.D. 06/03/2016 10:50 PM Dictated Date/Time: 06/03/2016 10:43 PM The status of this report is Signed. Draft = Not yet reviewed or approved by Radiologist. Signed = Reviewed and approved by Radiologist. <AttendingPhy></AttendingPhy> <FamilyPhy>Cherry Lange C.RPurnimaN.P.</FamilyPhy> < PrimaryPhy>Cherry Lange C.R.N.P.</PrimaryPhy> <UnitNumber>[id number]</ UnitNumber> <VisitNumber>[id number]</VisitNumber> <PatientName>TRAN SUSAN</PatientName> <DateOfBirth>1945</DateOfBirth> <Location>[facility]</ Location> <ServiceDate>06/03/16</ServiceDate> <MNE>ESINDI</MNE> <OrderingPhy> Jaxon Mclain M.D.</OrderingPhy> <OrderingPhyMNE>f rep ord dr wilson</ OrderingPhyMNE> <DictatingPhyMNE>f rep dict dr wilson</DictatingPhyMNE> <CCListMNE> f rep ct mne</CCListMNE> <AdmittingPhyMNE>f pt admit dr wilson</AdmittingPhyMNE> < AttendingPhyMNE>f pt attend dr wilson</AttendingPhyMNE> <ConsultingPhyMNE>f pt consult dr wilson</ConsultingPhyMNE> <FamilyPhyMNE>f pt fam dr wilson</FamilyPhyMNE> <OtherPhyMNE>f pt other dr wilson</OtherPhyMNE> < PrimaryPhyMNE>f pt prim care dr wilson</PrimaryPhyMNE> <ReferringPhyMNE>f pt referring dr wilson</ReferringPhyMNE> Patient Name: SUSAN TRAN Unit Number: [id number] Dictated: 06/03/162215 Transcribed: 06/03/162215 eoSemi Printed Date/Time: [~ rep prt dt]/[~ rep prt tm] [~ rep ct labl] - [~ rep ct ivnm] [facility] [place] [address] Dictated: 06/03/162215 Transcribed: 06/03/162215 eoSemi Printed Date/Time: [~ rep prt dt]/[~ rep prt tm] [~ rep ct labl] - [~ rep ct ivnm] [~ rep ct add3]] CHEST ONE VIEW PORTABLE HISTORY: Altered mental status. COMPARISON: Chest 05/16/2016. FINDINGS: Low lung volumes. Bibasilar linear densities. The heart remains enlarged. Mild central pulmonary vascular congestion without overt edema. No pneumothorax. Trace right pleural effusion. IMPRESSION: 1. Low lung volumes and cardiomegaly persist. 2. Mild pulmonary vascular congestion has improved. 3. Bibasilar densities have also improved. Electronically signed by: Ivan Sue M.D. 06/03/2016 10:17 PM Dictated Date/Time: 06/03/2016 10:16 PM The status of this report is Signed. Draft = Not yet reviewed or approved by Radiologist. Signed = Reviewed and approved by Radiologist. <AttendingPhy></AttendingPhy> <FamilyPhy>Cherry LangeC.R.N.P.</FamilyPhy> < PrimaryPhy>Cherry Lange C.R.N.P.</PrimaryPhy> <UnitNumber>[id number]</ UnitNumber> <VisitNumber>[id number]</VisitNumber> <PatientName>SUSAN TRAN</PatientName> <DateOfBirth>1945</DateOfBirth> <Location>[facility]</ Location> <ServiceDate>06/03/16</ServiceDate> <MNE>ESINDI</MNE> <OrderingPhy> Jaxon Mclain M.D.</OrderingPhy> <OrderingPhyMNE>f rep ord dr wilson</ OrderingPhyMNE> <DictatingPhyMNE>f rep dict dr wilson</DictatingPhyMNE> <CCListMNE> f rep ct katie</CCListMNE> <AdmittingPhyMNE>f pt admit dr wilson</AdmittingPhyMNE> < AttendingPhyMNE>f pt attend dr wilson</AttendingPhyMNE> <ConsultingPhyMNE>f pt consult dr wilson</ConsultingPhyMNE> <FamilyPhyMNE>f pt fam dr wilson</FamilyPhyMNE> <OtherPhyMNE>f pt other dr wilson</OtherPhyMNE> < PrimaryPhyMNE>f pt prim care dr wilson</PrimaryPhyMNE> <ReferringPhyMNE>f pt referring dr wilson</ReferringPhyMNE> EKG EKG shows normal sinus rhythm at 62 bpm, old inferior wall FL, no acute ST-T changes. Emergency Department monitoring shows frequent episodes of sinus bradycardia down into the mid 40s. Impression Assessment and Plan Increased seizure activity/seizure disorder/astrocytoma brain tumor-the patient will be admitted to the telemetry unit, for cardiac rhythm monitoring, and frequent neuro checks. We'll continue Decadron 4 mg by mouth 4 times a day, lamotrigine 100 mg by mouth twice a day, Keppra 2000 mg by mouth every 12 hours , lorazepam 0.75 mg by mouth 3 times a day, and will have available lorazepam IV. We'll consult neurology. Bradycardia--patient will be followed closely on telemetry, and question would be whether the patient may have had episodes of bradycardia low enough potentially trigger seizure activity. We'll order an echocardiogram. Hypercholesterolemia--continue Crestor 5 mg by mouth daily and enteric-coated aspirin 81 mg by mouth daily. GERD--continue famotidine 20 mg by mouth twice a day. Depression--continue sertraline 200 mg by mouth daily. BPH--continue tamsulosin 0.4 mg by mouth at bedtime. Level of Care Telemetry Advanced Directives Existing Advance Directive: No Existing Living Will: No Existing Power of Medical Language Specialist: No Resuscitation Status FULL RESUSCITATION VTE Prophylaxis VTE Risk Assessment Done? Y/N: Yes Risk Level: Moderate Given or contraindicated: SCD's Social Service Consult Cancer Patient Under [place]
[2016-06-04] MEDS: ASPIRIN 81 MG ECTAB PO SCH (07:45)
[2016-06-04] MEDS ORDERED: LORAZEPAM 0.5 MG TAB ONE ×2 (07:46→07:51)
[2016-06-04] MEDS ORDERED: LORAZEPAM 1 MG TAB ONE (07:46)
[2016-06-04] MEDS: SERTRALINE HCL 100 MG TAB PO SCH (07:47)
[2016-06-04] MEDS ORDERED: LEVETIRACETAM 500 MG TAB PO SCH (09:00)
[2016-06-04] MEDS ORDERED: DEXAMETHASONE 4 MG TAB PO SCH (09:00)
[2016-06-04] MEDS ORDERED: FAMOTIDINE 20 MG TAB PO SCH (09:00)
[2016-06-04] MEDS ORDERED: ROSUVASTATIN CALCIUM 10 MG TAB PO SCH (09:00)
[2016-06-04] MEDS ORDERED: LORAZEPAM 0.5 MG TAB PO SCH (09:00)
[2016-06-04] MEDS ORDERED: MULTIVITAMIN TAB PO SCH (09:00)
--- NOTE | 2016-06-04 11:33 | Progress Note ---
Subjective Date of Service: Jun 04, 2016. Subjective the pts gives a history that he was very good, walking with walker, speech improved and then suddenly decompensated Problem List Medical Problems: (1) Altered mental status Status: Acute (2) Altered mental status Status: Acute (3) Aphasia Status: Acute (4) Aphasia Status: Acute (5) Astrocytoma Status: Acute (6) Bilateral pulmonary embolism Status: Acute (7) Brain tumor Status: Acute (8) Constipation Status: Acute (9) Difficulty with speech Status: Acute (10) Fever Status: Acute (11) Fever Status: Acute (12) Leg pain, left Status: Acute (13) No history of seizures Status: Chronic (14) Partial seizure Status: Acute (15) Pneumonia Status: Acute (16) Right arm weakness Status: Acute (17) Right arm weakness Status: Acute (18) Seizure Status: Acute (19) SOB (shortness of breath) Status: Acute (20) Vasogenic brain edema Status: Acute (21) Vasogenic brain edema Status: Acute Review of Systems Constitutional: + fatigue, + weakness, No chills, No fever Respiratory: + cough, No dyspnea on exertion, No shortness of breath Cardiac: No chest pain, No edema Abdomen: No diarrhea, No nausea, No pain, No vomiting Neurologic: + balance problems, + memory loss, + weakness Objective Vital Signs Date Time Temp Pulse Resp B/P Pulse Ox O2 Delivery O2 Flow Rate FiO2 06/04/16 07:11 36.7 63 20 161/75 94 Room Air 06/04/16 04:00 93 Room Air 06/04/16 04:00 37.0 53 20 152/79 93 Room Air 06/04/16 01:18 36.9 51 20 156/74 96 Room Air 06/04/16 00:28 81 18 142/91 98 Room Air 06/03/16 23:23 37.2 06/03/16 22:14 38.9 06/03/16 21:45 37.1 77 18 150/91 94 Room Air Physical Exam General Appearance: WD/WN, + moderate distress Neck: supple, no JVD Respiratory/Chest: + decreased breath sounds, + rhonchi Cardiovascular: regular rate, rhythm, no murmur Abdomen: non tender, soft Extremities: no pedal edema, no calf tenderness Neurologic/Psychiatric: + depressed affect, + disoriented Laboratory Results I personally reviewed these labs 06/04 Last 24 Hours Test 06/03/16 22:20 06/03/16 22:25 06/03/16 22:42 06/03/16 23:05 White Blood Count 10.48 K/uL Red Blood Count 4.54 M/uL Hemoglobin 14.8 g/dL Hematocrit 43.9 % Mean Corpuscular Volume 96.7 fL Mean Corpuscular Hemoglobin 32.6 pg Mean Corpuscular Hemoglobin Concent 33.7 g/dl Platelet Count 129 K/uL Mean Platelet Volume 10.6 fL Neutrophils (%) (Auto) 76.9 % Lymphocytes (%) (Auto) 14.7 % Monocytes (%) (Auto) 6.3 % Eosinophils (%) (Auto) 1.1 % Basophils (%) (Auto) 0.2 % Neutrophils # (Auto) 8.06 K/uL Lymphocytes # (Auto) 1.54 K/uL Monocytes # (Auto) 0.66 K/uL Eosinophils # (Auto) 0.12 K/uL Basophils # (Auto) 0.02 K/uL RDW Standard Deviation 52.9 fL RDW Coefficient of Variation 14.8 % Immature Granulocyte % (Auto) 0.8 % Immature Granulocyte # (Auto) 0.08 K/uL Prothrombin Time 10.0 SECONDS Prothromb Time International Ratio 0.9 Activated Partial Thromboplast Time 25.4 SECONDS Partial Thromboplastin Ratio 1.0 Sodium Level 142 mmol/L Potassium Level 3.9 mmol/L Chloride Level 109 mmol/L Carbon Dioxide Level 25 mmol/L Anion Gap 8.0 mmol/L Blood Urea Nitrogen 18 mg/dl Creatinine 0.64 mg/dl Est Creatinine Clear Calc Drug Dose 124.8 ml/min Estimated GFR () 115.8 Estimated GFR (Non- 99.9 BUN/Creatinine Ratio 28.4 Random Glucose 86 mg/dl Calcium Level 8.4 mg/dl Total Bilirubin 0.3 mg/dl Direct Bilirubin < 0.1 mg/dl Aspartate Amino Transf (AST/SGOT) 14 U/L Alanine Aminotransferase (ALT/SGPT) 37 U/L Alkaline Phosphatase 80 U/L Total Creatine Kinase 32 U/L Troponin I < 0.015 ng/ml Total Protein 5.8 gm/dl Albumin 3.0 gm/dl Bedside Lactic Acid Venous 1.03 mmol/L Influenza Type A (RT-PCR) Neg for Influ A Influenza Type B (RT-PCR) Neg for Influ B Urine Color YELLOW Urine Appearance CLEAR Urine pH 6.0 Urine Specific [place] 1.027 Urine Protein NEG Urine Glucose (UA) NEG Urine Ketones NEG Urine Occult Blood NEG Urine Nitrite NEG Urine Bilirubin NEG Urine Urobilinogen NEG Urine Leukocyte Esterase TRACE Urine WBC (Auto) 1-5 /hpf Urine RBC (Auto) 0-4 /hpf Urine Hyaline Casts (Auto) 1-5 /lpf Urine Epithelial Cells (Auto) 5-10 /lpf Urine Bacteria (Auto) NEG Assessment and Plan 70-year-old male with a history of chronic seizures and astrocytoma presents the ED with a breakthrough seizure shortly after being discharged from [facility]. Recently diagnosed new tumor focus in fall of 2015 Astrocytoma, convert to iv steroids and supportive care, has word searching issues and will have MRI 06/04, I reveiwed CT of head 06/04 Breakthrough seizure? the sudden change makes it seem more likley will Check EEG- Decadron Keppra 2000 mg po BID lamotrigine 100 mg po BID Metabolic encephalopathy, will await urine and blood cultures Speech, did have aspiration and previously was recommended nectar thick liquids , re evaluated 06/04 and I spoke to speech path, no new changes needed Depression sertraline 100 mg daily BPH tamsulosin 0.4 mg daily
[2016-06-04] MEDS ORDERED: LORAZEPAM INJ 0.5 MG in SYRINGE 0.75 ML IV PRN (12:15)
[2016-06-04] MEDS: DEXAMETHASONE INJ 4 MG in SYRINGE 0 ML IV SCH ×2 (13:28→20:17)
[2016-06-04] MEDS ORDERED: LORAZEPAM 2 MG/ML 1 ML VIAL IV SCH (14:00)
[2016-06-04] MEDS: FAMOTIDINE IV INJ 20 MG in DEXTROSE 5% 100ML 100 ML IV SCH (16:55)
[2016-06-04] MEDS: LEVETIRACETAM IV 2,000 MG in DEXTROSE 5% 250ML 250 ML IV SCH (20:17)
[2016-06-04] MEDS ORDERED: TAMSULOSIN HCL 0.4 MG CAP PO SCH (21:00)
[2016-06-04] MEDS: LORAZEPAM INJ 1 MG in SYRINGE 0.5 ML IV PRN (23:04)
[2016-06-05] VITALS: O2SAT 95
--- NOTE | 2016-06-05 00:43 | Progress Note ---
Progress Note Date of Service Jun 05, 2016. Progress Note I was paged at approximately 00:00. Nursing noted that patient was noted to be agitated. Patient is apparently due to have an MRI, however with agitation patient was likely not going to be able to tolerate the procedure. Nursing also notes that earlier on in the evening multiple family members were in the room at the bedside and I suspect that he may have been fed small amount of liquid. On a couple occasions this evening, his breath sounds have been course and these have some coughing. She is concerned that he has aspirated. Family members requested that he be placed on nasal cannula before they departed for the evening. I arrived at the to the bedside to assess the patient. Nursing notes that they' re finally able to get him calmed down and sleep. SUBJECTIVE: Mr. Henderson was fast asleep. I did not wake him up OBJECTIVE: Vital Signs Label Value Date Time Patient Temperature 36.9 C. 06/04/161911 Temperature Source Oral 06/04/161911 Pulse 56 06/04/161911 Location Left Apical Respiratory Rate 18 06/04/161911 Blood Pressure Assessment 116/64 06/04/161911 Location Left Arm Source NIBP Position Supine Bedside Pulse Oximetry 92 % 06/04/161911 Item Value Date Time Oxygen Delivery Method Room Air 06/04/161911 General inspection: Sleeping, appears comfortable, not in any apparent distress He is on 2 L by nasal cannula Respiratory: No nasal flaring, no retractions, anterior chest was auscultated, only slightly coarse breath sounds. ASSESSMENT/PLAN: 70-year-old male admitted for seizure on a background of astrocytoma. MRI is pending for further evaluation of seizure. In addition, he may have aspirated per nursing. I reviewed him at the bedside, he does appear comfortable and not in any respiratory distress. He was on 2 L of nasal cannula but this was at the request of his family not because of measure hypoxia. Auscultation of his lungs does reveal only slight coarseness, but I did note that he has recently had a chest x-ray which did show some degree of pulmonary congestion which is resolving. At this time, I will approach this conservatively. Unless he becomes truly hypoxic, begins to show signs of respiratory distress, begins spiking temperatures or becomes increasingly agitated or encephalopathic, I do not feel it is appropriate at this time to wake him up, draw labs, do a chest x-ray. In regards to having an MRI, he is sleeping comfortably at this time and I do not see a reason to wake him up to send him down for a scan. The MRI does not appear to be an urgent matter, and can be deferred until the morning. I have asked the nursing staff to stop the oxygen unless he is hypoxic, keep me informed on his clinical status, to continue routine vital sign monitoring, and to notify me if there is any evidence of respiratory distress or hemodynamic changes. Only at that point what I consider working him up in the overnight period.
[2016-06-05] MEDS: DEXAMETHASONE INJ 4 MG in SYRINGE 0 ML IV SCH ×4 (01:12→20:21)
[2016-06-05] MEDS: FAMOTIDINE IV INJ 20 MG in DEXTROSE 5% 100ML 100 ML IV SCH ×2 (04:26→17:27)
[2016-06-05 06:16] VITALS: BP 127/68; PULSE 52; TEMP 36.7; O2SAT 92
[2016-06-05] MEDS: LORAZEPAM INJ 1 MG in SYRINGE 0.5 ML IV PRN (06:16)
[2016-06-05 08:35] LABS: BASO % 0.1 %; BASO ABS # 0.01 K/uL (0-0.2); COMPLETE YES; EOS % 0.1 %; HEMATOCRIT 43.9 % (42-52); IG% 0.4 %; LYMPH % 13.8 %; LYMPH ABS # 1.41 K/uL (1.2-3.4); MEAN CELL VOLUME 95.2 fL (80-100); MEAN CORPUSCULAR HEMOGLOBIN 32.8 pg (25-34); MEAN CORPUSCULAR HGB CONC 34.4 g/dl (32-36); MEAN PLATELET VOLUME 10.2 fL (7.4-10.4); MONO % 7.3 %; NEUT % 78.3 %; PLATELET COUNT 108 K/uL (130-400); RED BLOOD COUNT 4.61 M/uL (4.7-6.1); WHITE BLOOD COUNT 10.22 K/uL (4.8-10.8)
--- NOTE | 2016-06-05 08:50 | EEG Procedure Note ---
EEG Procedure Note Date of Service Jun 05, 2016. 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 Presented with breakthrough seizures. EEG for further evaluation of seizures. Pertinent medications include Keppra and Lamictal Home Medication List Scheduled Aspirin (Aspirin Ec), 81 MG PO DAILY Dexamethasone (Decadron), 4 MG PO QID Famotidine (Pepcid), 20 MG PO BID Lamotrigine (Lamictal), 100 MG PO BID Levetiracetam (Keppra), 2,000 MG PO Q12 Lorazepam (Ativan), 0.75 MG PO TID Multiple Vitamin (Multivitamin), 1 TAB PO DAILY Rosuvastatin Calcium (Crestor), 5 MG PO DAILY Sertraline (Zoloft), 200 MG PO DAILY Tamsulosin Hcl (Flomax), 0.4 MG PO HS Scheduled PRN Acetaminophen (Tylenol), 650 MG PO Q4 PRN for Pain Albuterol Hfa (Ventolin Hfa), 1 PUFF INH QID PRN for SOB/Wheezing Inpatient Medication List Current Inpatient Medications Medications (Trade) Dose Ordered Sig/Pietro Route Start Time Stop Time Status Last Admin Dose Admin Acetaminophen (Tylenol Tab) 650 mg Q4H PRN PO 06/04/16 00:30 07/04/16 00:29 Ondansetron HCl (Zofran Inj) 4 mg Q6H PRN IV 06/04/16 00:30 07/04/16 00:29 Albuterol (Ventolin Hfa Inhaler) 2 puffs QID PRN INH 06/04/16 00:45 07/04/16 00:44 Aspirin (Ecotrin Tab) 81 mg DAILY PO 06/04/16 09:00 07/04/16 08:59 06/04/16 07:45 81 MG Sertraline HCl 200 mg 200 mg DAILY PO 06/04/16 09:00 07/04/16 08:59 06/04/16 07:47 200 MG Levetiracetam/ Dextrose (Keppra Iv/D5 250ml) 270 ml @ 999 mls/hr Q12 IV 06/04/16 21:00 07/04/16 20:59 06/04/16 20:17 999 MLS/HR Lamotrigine 100 mg 100 mg BID PO 06/04/16 20:00 07/04/16 19:59 06/04/16 20:17 100 MG Dexamethasone Sodium Phosphate 4 mg/Syringe 1 ml @ 1 mls/min Q6H IV 06/04/16 14:00 07/04/16 13:59 06/05/16 01:12 1 MLS/MIN Famotidine/ Dextrose (Pepcid IV Inj/ D5 100ml) 102 ml @ 200 mls/hr Q12H IV 06/04/16 16:00 07/04/16 15:59 06/05/16 04:26 200 MLS/HR Lorazepam (Ativan Inj) 1 mg Q4H PRN IV 06/04/16 10:15 07/04/16 10:14 Lorazepam 0.5 mg 0.5 mg Q4H PRN IV 06/04/16 10:15 07/04/16 10:14 Lorazepam 0.5 mg/ Syringe 1 ml @ 1 mls/min Q4H PRN IV 06/04/16 12:15 07/04/16 12:14 Lorazepam/Syringe (Ativan Inj/ Syringe) 1 ml @ 1 mls/min Q4H PRN IV 06/04/16 12:15 07/04/16 12:14 06/05/16 06:16 1 MLS/MIN Description This is a 21 electrode EEG with a single channel dedicated to limited EKG. The electrodes were placed in accordance with the International 10-20 system. There was frequent movement artifact that sometimes limited 3 to this EEG. Start of this recording the patient was in reported altered mental status. Background appeared to be organized. Background was composed of low to moderate amplitude theta/alpha and beta frequencies. Difficult to assess whether there was any focal slowing due to frequent movement artifact. There was a symmetric moderate amplitude posterior dominant rhythm of 6-7 Hz that was reactive to eye opening and closure. There was no state changes or sleep transients. Hyperventilation and photic stimulation were not done due to agitation and mental status. Interpretation This is an abnormal routine EEG secondary to mild background slowing. There was no electrographic seizures or epileptiform discharges. Clinical Correlation This EEG indicates a mild encephalopathy of nonspecific etiology This EEG was moderately limited secondary to frequent movement artifact.
[2016-06-05] MEDS: LEVETIRACETAM IV 2,000 MG in DEXTROSE 5% 250ML 250 ML IV SCH ×2 (09:12→20:23)
[2016-06-05 09:15] LABS: BUN/CREATININE RATIO 19.2 (10-20); CALCIUM 8.6 mg/dl (8.5-10.1); CREATININE 0.59 mg/dl (0.60-1.40); MAGNESIUM 2.4 mg/dl (1.8-2.4); POTASSIUM 4.2 mmol/L (3.5-5.1)
[2016-06-05] MEDS: SERTRALINE HCL 100 MG TAB PO SCH (09:16)
[2016-06-05] MEDS: ASPIRIN 81 MG ECTAB PO SCH (09:17)
--- NOTE | 2016-06-05 09:43 | Neurology Consultation ---
Neurology Consultation Date of Consultation: Jun 05, 2016. Attending Physician: Elliot Mejía M.D. Primary Care Physician: Cherry Lange C.R.N.P. 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 He has been seen by myself and Dr. Greene in hospital consultation in the past and follows with Dr. Morton in neurology clinic. Patient was seen earlier this month for pneumonia and was discharged to [facility]. The patient has just been released from [facility] when the reports that she found him on the floor in the position and contorted. I'll later on witnessed reported seizure with slurred speech, and transient right arm weakness afterwards. According to nursing staff he appears to be more calm and less agitated than he was yesterday. They were unable to get an MRI of the brain last night secondary to agitation. Past treatment have included steroids for his astrocytoma, Dilantin, Keppra, most recently Lamictal. Patient denies any medication side effects. The history is somewhat limited secondary to the patient's mental status and aphasia. No reported seizure activity since admission. EEG was read by myself this morning and was limited secondary to frequent movement artifact, but was otherwise unremarkable except for some mild background slowing. Labs were reviewed. UA is unremarkable. No signs of infection currently. Previous MRI of the brain report and images was reviewed by myself. No significant edema or mass effect at that time. Past Medical/Surgical History Medical Problems: (1) Altered mental status Status: Acute (2) Altered mental status Status: Acute (3) Aphasia Status: Acute (4) Aphasia Status: Acute (5) Astrocytoma Status: Acute (6) Bilateral pulmonary embolism Status: Acute (7) Brain tumor Status: Acute (8) Constipation Status: Acute (9) Difficulty with speech Status: Acute (10) Fever Status: Acute (11) Fever Status: Acute (12) Leg pain, left Status: Acute (13) No history of seizures Status: Chronic (14) Partial seizure Status: Acute (15) Pneumonia Status: Acute (16) Right arm weakness Status: Acute (17) Right arm weakness Status: Acute (18) Seizure Status: Acute (19) SOB (shortness of breath) Status: Acute (20) Vasogenic brain edema Status: Acute (21) Vasogenic brain edema Status: Acute BPH, left temporal astrocytoma, dyslipidemia, diverticular disease, hypertension , seizure secondary to astrocytoma, history of PE Family History Noncontributory Social History Currently living with his who helps take care of him Smoking Status: Never smoker Smokeless Tobacco Use: No Alcohol Use: none Drug Use: none Marital Status: Housing Status: lives with significant other Occupation Status: retired Allergies Coded Allergies: No Known Allergies (Unverified , 05/16/16) Current Inpatient Medications Current Inpatient Medications Medications (Trade) Dose Ordered Sig/Pietro Route Start Time Stop Time Status Last Admin Dose Admin Acetaminophen (Tylenol Tab) 650 mg Q4H PRN PO 06/04/16 00:30 07/04/16 00:29 Ondansetron HCl (Zofran Inj) 4 mg Q6H PRN IV 06/04/16 00:30 07/04/16 00:29 Albuterol (Ventolin Hfa Inhaler) 2 puffs QID PRN INH 06/04/16 00:45 07/04/16 00:44 Aspirin (Ecotrin Tab) 81 mg DAILY PO 06/04/16 09:00 07/04/16 08:59 06/05/16 09:17 81 MG Sertraline HCl 200 mg 200 mg DAILY PO 06/04/16 09:00 07/04/16 08:59 06/05/16 09:16 200 MG Levetiracetam/ Dextrose (Keppra Iv/D5 250ml) 270 ml @ 999 mls/hr Q12 IV 06/04/16 21:00 07/04/16 20:59 06/05/16 09:12 999 MLS/HR Lamotrigine 100 mg 100 mg BID PO 06/04/16 20:00 07/04/16 19:59 06/05/16 09:17 100 MG Dexamethasone Sodium Phosphate 4 mg/Syringe 1 ml @ 1 mls/min Q6H IV 06/04/16 14:00 07/04/16 13:59 06/05/16 09:14 1 MLS/MIN Famotidine/ Dextrose (Pepcid IV Inj/ D5 100ml) 102 ml @ 200 mls/hr Q12H IV 06/04/16 16:00 07/04/16 15:59 06/05/16 04:26 200 MLS/HR Lorazepam (Ativan Inj) 1 mg Q4H PRN IV 06/04/16 10:15 07/04/16 10:14 Lorazepam 0.5 mg 0.5 mg Q4H PRN IV 06/04/16 10:15 07/04/16 10:14 Lorazepam 0.5 mg/ Syringe 1 ml @ 1 mls/min Q4H PRN IV 06/04/16 12:15 07/04/16 12:14 Lorazepam/Syringe (Ativan Inj/ Syringe) 1 ml @ 1 mls/min Q4H PRN IV 06/04/16 12:15 07/04/16 12:14 06/05/16 06:16 1 MLS/MIN Review of Systems Review systems otherwise negative except for the above noted in history of present illness Physical Exam Vital Signs (Past 24 Hrs): Date Time Temp Pulse Resp B/P Pulse Ox O2 Delivery O2 Flow Rate FiO2 06/05/16 08:59 Room Air 06/05/16 06:16 36.7 52 19 127/68 92 Room Air 06/05/16 00:00 95 Room Air 06/04/16 20:00 95 Nasal Cannula 2.0 06/04/16 19:12 36.9 56 18 116/64 92 Room Air 06/04/16 17:56 Room Air 06/04/16 15:08 36.6 58 16 121/70 92 Room Air 06/04/16 10:00 36.8 75 20 144/80 94 Room Air 06/04/16 09:57 36.7 63 20 94 Gen.: Lying in bed in no acute distress HEENT: Normocephalic atraumatic no scleral icterus Heart regular rate and rhythm Extremities: No gross deformities or rashes noted Neurological examination: Patient is alert and oriented to person, but not fully to place or time. Patient seems tired, but Attention and concentration normal for the situation. He was able to follow some one-step commands correctly. Speech displays moderate to severe expressive aphasia. No dysarthria. Cranial nerves: Funduscopic exam unremarkable. No papilledema. Pupils equally round and reactive to light. Extraocular muscles intact. No facial asymmetry noted. Sensation sensation intact. Tongue was midline. Palate symmetric. Good shoulder shrug bilaterally. May have some decreased hearing to voice. Sensation: Grossly intact to light touch in all extremities. Strength: 5/5 both proximally and distally in the left upper and lower extremity. Right upper and lower extremity 4/5 Deep tendon reflexes: +1 in bilateral biceps and brachial radialis and patellar. Up going toe on the right Coordination: Patient had good finger to nose without dysmetria Station within the bed was normal Laboratory Results Past 24 Hours: 06/05/16 08:25 Red Blood Count 4.61, Mean Corpuscular Volume 95.2, Mean Corpuscular Hemoglobin 32.8, Mean Corpuscular Hemoglobin Concent 34.4, Mean Platelet Volume 10.2, Neutrophils (%) (Auto) 78.3, Lymphocytes (%) (Auto) 13.8, Monocytes (%) (Auto) 7.3, Eosinophils (%) (Auto) 0.1, Basophils (%) (Auto) 0.1, Neutrophils # (Auto) 8.00, Lymphocytes # (Auto) 1.41, Monocytes # (Auto) 0.75, Eosinophils # (Auto) 0.01, Basophils # (Auto) 0.01 06/05/16 08:25 Test 06/05/16 08:25 White Blood Count 10.22 K/uL (4.8-10.8) Red Blood Count 4.61 M/uL (4.7-6.1) Hemoglobin 15.1 g/dL (14.0-18.0) Hematocrit 43.9 % (42-52) Mean Corpuscular Volume 95.2 fL (80-100) Mean Corpuscular Hemoglobin 32.8 pg (25-34) Mean Corpuscular Hemoglobin Concent 34.4 g/dl (32-36) Platelet Count 108 K/uL (130-400) Mean Platelet Volume 10.2 fL (7.4-10.4) Neutrophils (%) (Auto) 78.3 % Lymphocytes (%) (Auto) 13.8 % Monocytes (%) (Auto) 7.3 % Eosinophils (%) (Auto) 0.1 % Basophils (%) (Auto) 0.1 % Neutrophils # (Auto) 8.00 K/uL (1.4-6.5) Lymphocytes # (Auto) 1.41 K/uL (1.2-3.4) Monocytes # (Auto) 0.75 K/uL (0.11-0.59) Eosinophils # (Auto) 0.01 K/uL (0-0.5) Basophils # (Auto) 0.01 K/uL (0-0.2) RDW Standard Deviation 50.6 fL (36.4-46.3) RDW Coefficient of Variation 14.5 % (11.5-14.5) Immature Granulocyte % (Auto) 0.4 % Immature Granulocyte # (Auto) 0.04 K/uL (0.00-0.02) Anion Gap 8.0 mmol/L (3-11) Est Creatinine Clear Calc Drug Dose 138.3 ml/min Estimated GFR () 119.7 Estimated GFR (Non- 103.3 BUN/Creatinine Ratio 19.2 (10-20) Calcium Level 8.6 mg/dl (8.5-10.1) Magnesium Level 2.4 mg/dl (1.8-2.4) Impression This is a 70-year-old male with a known right temporal astrocytoma and focal seizures secondary to astrocytoma. He is followed by oncology at [place]. Patient reportedly had 2 witnessed seizures yesterday by his . No reported medication side effects to Keppra and Lamictal. Plan Agree with getting MRI of the brain to make sure that there is no structural changes. If there is increased edema or changes in astrocytoma, who would recommend considering consulting oncology. For seizure management, I increased Lamictal to 125 mg twice a day. I have ordered a Lamictal level for tomorrow morning for further medication management and planning Continue Keppra without change If the patient has no additional seizures today and no significant changes on his MRI of the brain, could reasonably be discharged tomorrow from a neurological standpoint Hospital Follow-up with Dr. Morton or physician physical laboratory assistant in 1 month. If patient continues to have breakthrough seizures despite appropriate titration of Lamictal, would recommend consideration for Vimpat versus a long acting benzo such as Klonopin or onfi. Thank you for allowing me to participate in this patient's care. If there is any questions or concerns, or further seizures, feel free to call/page me.
[2016-06-05 11:46] VITALS: BP 133/76; PULSE 47; TEMP 36.2; O2SAT 92
[2016-06-05 15:19] VITALS: BP 135/78; PULSE 54; TEMP 36.7; O2SAT 94
--- NOTE | 2016-06-05 16:55 | Progress Note ---
Subjective Date of Service: Jun 05, 2016. Subjective pt still with aphasia of word searching. no other focal complaints is at bedside and updated Problem List Medical Problems: (1) Altered mental status Status: Acute (2) Altered mental status Status: Acute (3) Aphasia Status: Acute (4) Aphasia Status: Acute (5) Astrocytoma Status: Acute (6) Bilateral pulmonary embolism Status: Acute (7) Brain tumor Status: Acute (8) Constipation Status: Acute (9) Difficulty with speech Status: Acute (10) Fever Status: Acute (11) Fever Status: Acute (12) Leg pain, left Status: Acute (13) No history of seizures Status: Chronic (14) Partial seizure Status: Acute (15) Pneumonia Status: Acute (16) Right arm weakness Status: Acute (17) Right arm weakness Status: Acute (18) Seizure Status: Acute (19) SOB (shortness of breath) Status: Acute (20) Vasogenic brain edema Status: Acute (21) Vasogenic brain edema Status: Acute Review of Systems Constitutional: + fatigue, + weakness, No chills, No fever Cardiac: No chest pain, No edema Abdomen: No pain, No vomiting Musculoskeletal: No joint pain, No muscle pain Male : No dysuria Neurologic: + balance problems, + memory loss, + weakness Objective Vital Signs Date Time Temp Pulse Resp B/P Pulse Ox O2 Delivery O2 Flow Rate FiO2 06/05/16 06:16 36.7 52 19 127/68 92 Room Air 06/05/16 00:00 95 Room Air 06/04/16 20:00 95 Nasal Cannula 2.0 06/04/16 19:12 36.9 56 18 116/64 92 Room Air 06/04/16 17:56 Room Air 06/04/16 15:08 36.6 58 16 121/70 92 Room Air 06/04/16 10:00 36.8 75 20 144/80 94 Room Air 06/04/16 09:57 36.7 63 20 94 06/04/16 08:00 Room Air Physical Exam General Appearance: WD/WN, + moderate distress Neck: supple, no JVD Respiratory/Chest: chest non-tender, lungs clear, normal breath sounds Cardiovascular: regular rate, rhythm, no murmur Abdomen: normal bowel sounds, non tender, soft Extremities: no pedal edema, no calf tenderness Neurologic/Psychiatric: alert, + abnormal gait, + aphasia Laboratory Results Last 24 Hours Test 06/05/16 04:44 Assessment and Plan 70-year-old male with a history of chronic seizures and astrocytoma presents the ED with a breakthrough seizure shortly after being discharged from [facility]. Recently diagnosed new tumor focus in fall of 2015 overnight of 06/04- had periods of agitation that prevented MRI being performed , I spoke to DR Sanchez she recommends in creasing lamictal and trying for mri scan Astrocytoma, no improvement on iv steroids previously reviewed CT of head 06/04 Breakthrough seizure? the sudden change makes it be considered, ordered EEG results pending 06/05- continue iv Decadron Keppra 2000 mg po BID lamotrigine 125 mg po BID, no other suggestions per neurology Metabolic encephalopathy, negative urine and blood cultures, question if encephalopathy is from tumor or seizure Speech, did have aspiration and previously was recommended nectar thick liquids , re evaluated 06/04 and speech path felt no new changes needed Depression sertraline 100 mg daily BPH tamsulosin 0.4 mg daily
[2016-06-05 19:34] VITALS: BP 136/82; PULSE 56; TEMP 36.5; O2SAT 93
--- NOTE | 2016-06-05 20:47 | DIAGNOSTIC IMAGING REPORT ---
MRI OF THE BRAIN WITHOUT AND WITH IV CONTRAST CLINICAL HISTORY: Astrocytoma with worsening speech and alertness. COMPARISON STUDY: MRI of the brain May 28, [address] June 03, 2016. TECHNIQUE: Utilizing a 1.5 Ofelia magnet and dedicated coil, multiplanar, multiecho imaging of the brain was performed pre and postcontrast administration. IV administration of 9.5 mL of Gadavist contrast was uneventful. FINDINGS: This exam is significantly compromised by artifact due to patient motion and difficulty positioning on this exam. The diffusion weighted sequences are nearly nondiagnostic. Extensive edema within the left cerebral hemisphere is similar to MRI May 18, 2016. There is no midline shift. Ventricular system is stable. The basilar cisterns are patent. The previously described left temporal lobe mass is again noted. This measures approximately 2.7 cm and has inherent T1 hyperintensity. There may be mild enhancement of this lesion although the postcontrast images are compromised by artifact. The previously described periventricular left parietal lobe lesion is again noted. This demonstrates mild enhancement and measures approximately 1.9 cm. The degree of enhancement appears diminished since exam of May 18, 2016 although this could be technical. No new masses are identified. There is moderate mucosal thickening of the left maxillary sinus with an air-fluid level. This is unchanged. There is also mucosal thickening in the right maxillary and left frontal sinuses as well as the ethmoid sinuses. This is similar to prior exam. IMPRESSION: 1. Study significantly compromised by motion artifact and difficulty positioning the patient. Diffusion-weighted sequence is nearly nondiagnostic. 2. Redemonstration of the left temporal and parietal lobe masses. Associated edema appears similar to prior MRI of May 18, 2016. Apparent diminished enhancement of these lesions when compared to prior study may be technical unless the patient has undergone interval therapy. Electronically signed by: Timur Bronson M.D. 06/05/2016 8:46 PM Dictated Date/Time: 06/05/2016 8:38 PM
[2016-06-06] VITALS (8 sets, daily range): BP systolic 120–151; BP diastolic 68–82; PULSE 33–70; TEMP 36.4–36.7; O2SAT 90–93
[2016-06-06] MEDS: DEXAMETHASONE INJ 4 MG in SYRINGE 0 ML IV SCH ×2 (03:22→08:15)
[2016-06-06] MEDS: FAMOTIDINE IV INJ 20 MG in DEXTROSE 5% 100ML 100 ML IV SCH ×2 (03:27→16:52)
[2016-06-06] MEDS: LEVETIRACETAM IV 2,000 MG in DEXTROSE 5% 250ML 250 ML IV SCH ×2 (08:15→21:05)
[2016-06-06] MEDS: ASPIRIN 81 MG ECTAB PO SCH (08:15)
[2016-06-06] MEDS: SERTRALINE HCL 100 MG TAB PO SCH (08:15)
[2016-06-06 08:50] LABS: BASO % 0.1 %; BASO ABS # 0.01 K/uL (0-0.2); COMPLETE YES; HEMATOCRIT 46.2 % (42-52); IG% 0.4 %; LYMPH % 11.3 %; LYMPH ABS # 1.59 K/uL (1.2-3.4); MEAN CELL VOLUME 94.3 fL (80-100); MEAN CORPUSCULAR HEMOGLOBIN 32.4 pg (25-34); MEAN CORPUSCULAR HGB CONC 34.4 g/dl (32-36); MEAN PLATELET VOLUME 10.6 fL (7.4-10.4); MONO % 5.2 %; PLATELET COUNT 131 K/uL (130-400); WHITE BLOOD COUNT 14.04 K/uL (4.8-10.8)
[2016-06-06 09:22] LABS: BUN/CREATININE RATIO 21.8 (10-20); CALCIUM 8.5 mg/dl (8.5-10.1); CREATININE 0.56 mg/dl (0.60-1.40); MAGNESIUM 2.2 mg/dl (1.8-2.4); POTASSIUM 3.8 mmol/L (3.5-5.1)
--- NOTE | 2016-06-06 12:54 | Progress Note ---
Subjective Date of Service: Jun 06, 2016. Subjective pt had an unwitnessed fall 06/06, did have period of low heart rate, ecg did not determine a heart block or malignant rhythm, pt still with word searching and inability to stand without support Problem List Medical Problems: (1) Altered mental status Status: Acute (2) Altered mental status Status: Acute (3) Aphasia Status: Acute (4) Aphasia Status: Acute (5) Astrocytoma Status: Acute (6) Bilateral pulmonary embolism Status: Acute (7) Brain tumor Status: Acute (8) Constipation Status: Acute (9) Difficulty with speech Status: Acute (10) Fever Status: Acute (11) Fever Status: Acute (12) Leg pain, left Status: Acute (13) No history of seizures Status: Chronic (14) Partial seizure Status: Acute (15) Pneumonia Status: Acute (16) Right arm weakness Status: Acute (17) Right arm weakness Status: Acute (18) Seizure Status: Acute (19) SOB (shortness of breath) Status: Acute (20) Vasogenic brain edema Status: Acute (21) Vasogenic brain edema Status: Acute Review of Systems Constitutional: + fatigue, + weakness, No chills, No fever Respiratory: No cough, No shortness of breath Cardiac: No chest pain, No edema Abdomen: No diarrhea, No nausea, No pain, No vomiting Neurologic: + balance problems, + weakness Psychiatric: + depression symptoms, No anxiety Endo: + fatigue Objective Vital Signs Date Time Temp Pulse Resp B/P Pulse Ox O2 Delivery O2 Flow Rate FiO2 06/06/16 04:18 36.7 51 18 151/68 91 Room Air 06/06/16 00:31 36.5 64 16 128/82 92 Room Air 06/06/16 00:00 Room Air 06/05/16 19:34 36.5 56 16 136/82 93 Room Air 06/05/16 15:19 36.7 54 20 135/78 94 Room Air 06/05/16 11:46 36.2 47 18 133/76 92 Room Air 06/05/16 08:59 Room Air Physical Exam General Appearance: WD/WN, + moderate distress Neck: supple, no JVD Respiratory/Chest: chest non-tender, + decreased breath sounds, + accessory muscle use Cardiovascular: regular rate, rhythm, no murmur Abdomen: normal bowel sounds, non tender, soft Extremities: no pedal edema, no calf tenderness Neurologic/Psychiatric: alert, + abnormal gait, + aphasia, + depressed affect, + disoriented Laboratory Results Last 24 Hours Test 06/05/16 08:25 06/06/16 04:44 White Blood Count 10.22 K/uL Red Blood Count 4.61 M/uL Hemoglobin 15.1 g/dL Hematocrit 43.9 % Mean Corpuscular Volume 95.2 fL Mean Corpuscular Hemoglobin 32.8 pg Mean Corpuscular Hemoglobin Concent 34.4 g/dl Platelet Count 108 K/uL Mean Platelet Volume 10.2 fL Neutrophils (%) (Auto) 78.3 % Lymphocytes (%) (Auto) 13.8 % Monocytes (%) (Auto) 7.3 % Eosinophils (%) (Auto) 0.1 % Basophils (%) (Auto) 0.1 % Neutrophils # (Auto) 8.00 K/uL Lymphocytes # (Auto) 1.41 K/uL Monocytes # (Auto) 0.75 K/uL Eosinophils # (Auto) 0.01 K/uL Basophils # (Auto) 0.01 K/uL RDW Standard Deviation 50.6 fL RDW Coefficient of Variation 14.5 % Immature Granulocyte % (Auto) 0.4 % Immature Granulocyte # (Auto) 0.04 K/uL Sodium Level 139 mmol/L Potassium Level 4.2 mmol/L Chloride Level 105 mmol/L Carbon Dioxide Level 26 mmol/L Anion Gap 8.0 mmol/L Blood Urea Nitrogen 11 mg/dl Creatinine 0.59 mg/dl Est Creatinine Clear Calc Drug Dose 138.3 ml/min Estimated GFR () 119.7 Estimated GFR (Non- 103.3 BUN/Creatinine Ratio 19.2 Random Glucose 95 mg/dl Calcium Level 8.6 mg/dl Magnesium Level 2.4 mg/dl Assessment and Plan 70-year-old male with a history of chronic seizures and astrocytoma presents the ED with a breakthrough seizure shortly after being [facility]. Recently diagnosed new tumor focus in fall of 2015 morning of 06/06 was found on floor of room by nursing, pt cannot describe how he ended up on floor, no apparent injury, small red tapan on back vitals and labs reviewed 05/06 Astrocytoma, no improvement on iv steroids previously reviewed CT of head 06/04 , MRI personally reviewed, no new changes to explain decline, still edema present continue decadron and increase dose to see if helps Breakthrough seizure? EEG results pending 06/05- continue iv Decadron Keppra 2000 mg po BID lamotrigine 125 mg po BID( level pending) no other suggestions per neurology Metabolic encephalopathy, negative urine and blood cultures, question if encephalopathy is from tumor or seizure Speech, did have aspiration and previously was recommended nectar thick liquids , re evaluated 06/04 and speech path felt no new changes needed Depression sertraline 100 mg daily BPH tamsulosin 0.4 mg daily discussion with 06/04 had made pt DNR
[2016-06-06] MEDS: DEXAMETHASONE INJ 6 MG in SYRINGE 0 ML IV SCH ×2 (13:44→20:55)
[2016-06-07] VITALS (7 sets, daily range): BP systolic 126–148; BP diastolic 66–83; PULSE 42–58; TEMP 36.3–36.9; O2SAT 90–95
[2016-06-07] MEDS: DEXAMETHASONE INJ 6 MG in SYRINGE 0 ML IV SCH ×4 (02:03→21:02)
[2016-06-07] MEDS: FAMOTIDINE IV INJ 20 MG in DEXTROSE 5% 100ML 100 ML IV SCH ×2 (03:47→15:59)
[2016-06-07] MEDS: ASPIRIN 81 MG ECTAB PO SCH (07:37)
[2016-06-07] MEDS: SERTRALINE HCL 100 MG TAB PO SCH (07:37)
[2016-06-07] MEDS: LEVETIRACETAM IV 2,000 MG in DEXTROSE 5% 250ML 250 ML IV SCH ×2 (08:53→21:02)
--- NOTE | 2016-06-07 14:54 | Progress Note ---
Subjective Date of Service: Jun 07, 2016. Subjective pt is not much improved from admission, although neurlogy has signed off, he is not able to speak or ambulate to return home unless it would be for hospice I did discuss this with and it is not out of the question although was scheduled for chemo 06/08, will plan on consulting oncology to be final opinion on the chemo and if none further planned may proceed to home with hospice Problem List Medical Problems: (1) Altered mental status Status: Acute (2) Altered mental status Status: Acute (3) Aphasia Status: Acute (4) Aphasia Status: Acute (5) Astrocytoma Status: Acute (6) Bilateral pulmonary embolism Status: Acute (7) Brain tumor Status: Acute (8) Constipation Status: Acute (9) Difficulty with speech Status: Acute (10) Fever Status: Acute (11) Fever Status: Acute (12) Leg pain, left Status: Acute (13) No history of seizures Status: Chronic (14) Partial seizure Status: Acute (15) Pneumonia Status: Acute (16) Right arm weakness Status: Acute (17) Right arm weakness Status: Acute (18) Seizure Status: Acute (19) SOB (shortness of breath) Status: Acute (20) Vasogenic brain edema Status: Acute (21) Vasogenic brain edema Status: Acute Review of Systems Constitutional: + fatigue, + weakness, No chills, No fever Respiratory: No cough, No shortness of breath Cardiac: No chest pain, No edema Neurologic: + balance problems, + memory loss, + problem reported (speech aphasia), + weakness Psychiatric: + anxiety, + depression symptoms Objective Vital Signs Date Time Temp Pulse Resp B/P Pulse Ox O2 Delivery O2 Flow Rate FiO2 06/07/16 11:42 36.3 58 20 139/66 91 Nasal Cannula 2.0 06/07/16 08:19 36.3 51 18 126/83 95 Nasal Cannula 2.0 06/07/16 08:00 92 Nasal Cannula 2.0 06/07/16 03:48 36.9 44 19 148/78 90 Room Air 06/07/16 00:00 Nasal Cannula 2.0 06/06/16 23:05 36.4 43 20 140/73 92 Nasal Cannula 2.5 06/06/16 19:12 36.6 52 16 133/71 93 Room Air 06/06/16 16:00 Nasal Cannula 2.0 06/06/16 15:54 36.7 70 20 128/82 90 Nasal Cannula 2.0 Physical Exam General Appearance: WD/WN, + moderate distress Eyes: PERRL, EOMI Respiratory/Chest: chest non-tender, lungs clear Cardiovascular: no murmur, + bradycardia Abdomen: normal bowel sounds, non tender, soft Neurologic/Psychiatric: alert, + aphasia, + motor weakness Assessment and Plan 70-year-old male with a history of chronic seizures and astrocytoma presents the ED with a breakthrough seizure shortly after being discharged from [facility]. Recently diagnosed new tumor focus in fall of 2015, no appreciable change from admission condition despite increase steroids and lamictal morning of 06/06 was found on floor of room by nursing, pt cannot describe how he ended up on floor, no apparent injury spoke to 06/07 at bedside, was scheduled for chemo 06/08, aggress with plan to consult oncology to be final opinion on the chemo and if none further planned may proceed to home with hospice Astrocytoma, increased steroids to very high amount 06/[address] of head 06/04, MRI 06/06 reviewed, no new changes to explain decline, still edema present that was reasoning to increase decadron Breakthrough seizure? continue iv Decadron at higher doses for now Keppra 2000 mg po BID lamotrigine 125 mg po BID( level pending) no other suggestions per neurology Metabolic encephalopathy, negative urine and blood cultures, question if encephalopathy is from tumor or seizure Speech, did have aspiration and previously was recommended nectar thick liquids , re evaluated 06/04 and speech path felt no new changes needed Depression sertraline 100 mg daily BPH tamsulosin 0.4 mg daily discussion with 06/04 had made pt DNR, overall outlook is poor
[2016-06-08] VITALS (13 sets, daily range): BP systolic 130–186; BP diastolic 68–100; PULSE 40–109; TEMP 36.3–36.6; O2SAT 90–94
[2016-06-08] MEDS: DEXAMETHASONE INJ 6 MG in SYRINGE 0 ML IV SCH ×5 (02:00→20:25)
[2016-06-08] MEDS: FAMOTIDINE IV INJ 20 MG in DEXTROSE 5% 100ML 100 ML IV SCH ×2 (03:45→16:17)
[2016-06-08] MEDS: ASPIRIN 81 MG ECTAB PO SCH (07:41)
[2016-06-08] MEDS: SERTRALINE HCL 100 MG TAB PO SCH (07:41)
[2016-06-08] MEDS: LEVETIRACETAM IV 2,000 MG in DEXTROSE 5% 250ML 250 ML IV SCH ×2 (08:09→20:25)
--- NOTE | 2016-06-08 09:21 | ONCOLOGY CONSULTATION ---
DATE OF CONSULTATION: 06/08/2016 REASON FOR CONSULTATION: Astrocytoma in a 70-year-old gentleman well known to the [facility]. HISTORY OF PRESENT ILLNESS: Jack is a pleasant, but unfortunate, 70-year-old gentleman who was admitted to hospital on 06/04/2016 status post suspected fall. The patient found in position and contorted. Continuous seizures were described accompanied by slurred speech, right arm transient weakness. He developed a temperature prompting the patient's to bring him to the Emergency Room, and in the Emergency Room the patient continued to be confused and unable to respond to simple commands. This gentleman apparently has been inpatient both at [facility] and also down at the [facility]. Review of notes dated 05/13/2016 again describes an inpatient admission for diagnosis of pulmonary embolism, anticoagulated with Lovenox. It would appear at that time he was also complaining of right-sided weakness and expressive aphasia, which did improve with steroids. The clinical note also suggests he had been receiving Avastin while inpatient. Mr. Henderson is well known to us originally diagnosed back in September of 2014 after new onset of a partial seizure. Imaging at that time demonstrated an ill-defined flare hyperintense lesion involving the left frontal operculum, insula and left basal ganglia along with focal 1 cm enhancing nodule within the left insula. He underwent temporal biopsy and pathology demonstrated an anaplastic astrocytoma. He had completed involved field radiation therapy with concurrent temozolomide in December of 2014, receiving a total dose of 6000 cGy in 30 fractions over 44 days. He was then started on adjuvant temozolomide first received in January 2015. In March of 2015 had multiple seizures, was admitted to [facility]. MRI showed vasogenic edema and was started on high dose dexamethasone, Keppra was increased and Dilantin was added. He then continued on Avastin and his MRI from May 2015 showed decreasing size of an infiltrating grade 3 anaplastic astrocytoma. We last saw Mr. Henderson at the [facility] on 12/12/2015, which was also the last documented dose of Avastin given at that time. PAST MEDICAL HISTORY: Again, significant for astrocytoma, radiotherapy. PAST SURGICAL HISTORY: Craniotomy for debulking. MEDICATIONS: Prior to admission include aspirin 81 mg p.o. every day, dexamethasone 4 mg p.o. q.i.d., famotidine 20 mg p.o. b.i.d., Lamictal 100 mg p.o. b.i.d., Keppra 2000 mg p.o. q.12 hours, lorazepam 0.75 mg p.o. t.i.d., Crestor 5 mg p.o. every day, sertraline 200 mg p.o. every day, Flomax 0.4 mg p.o. every day, multivitamin 1 p.o. every day. ALLERGIES: No known drug allergies. FAMILY AND SOCIAL HISTORY: Unobtainable because of the patient's current mental status. He is currently aphasic. REVIEW OF SYSTEMS: Again, patient unable to provide adequate review of systems because of aphasia. PHYSICAL EXAMINATION: GENERAL: He is an ill-appearing 70-year-old gentleman, lying supine in bed in no acute distress. VITAL SIGNS: Temperature 36.4, pulse of 79, respirations 18, blood pressure 154/84. SKIN: Without rash or lesion. Turgor is fair. HEENT: Well-healed craniotomy wound, otherwise normocephalic. Eyes PERRLA, EOMI. Sclerae nonicteric. No conjunctival injection. Nares are patent without rhinorrhea or discharge. Throat is clear. Tongue is midline. Mucous membranes are moist. NECK: Supple. HEART: Regular rate and rhythm. No clicks, rubs, murmurs or gallops. LUNGS: Scattered rhonchi heard in all lung suarez. ABDOMEN: Soft, nontender, nondistended, without palpable hepatosplenomegaly. EXTREMITIES: Right side is flaccid. The patient has 3/5 strength on the left. He does follow simple commands. NEUROLOGIC: He is awake and alert and does follow simple commands. Orientation unable to be assessed. Definite motor weakness involving both his right upper and lower extremity. LABORATORY DATA: WBC count 14,000, hemoglobin 15.9, platelet count 131,000. Sodium 138, potassium 3.8, chloride 105, carbon dioxide 23, creatinine 0.56, BUN 12. MRI done on admission reveals redemonstration of right temporal and parietal lobe masses with associated edema seen. Appears similar to MRI from May of 2016. Apparent diminished enhancement of these lesions when compared to previous study, thought to be technical artifact. IMPRESSION: 1. Right-sided weakness. 2. Generalized seizure disorder. 3. Astrocytoma. 4. Bradycardia. 5. Hypercholesterolemia. 6. Depression. PLAN: Mr. Henderson is a pleasant, but unfortunate, 70-year-old gentleman diagnosed with astrocytoma of the right parietotemporal lesion in 2014. He obviously was lost to followup. His last note dictated from the [facility] was in December of 2015. Apparently, he has had multiple admissions both locally at [facility] and subsequently [facility]. It would appear he received bevacizumab while inpatient at the [facility] as well. His comorbid status is tenuous and overall prognosis poor. Will need to engage in discussion with the patient and his regarding where we go from here. Obviously his seizures need to be better controlled. I am not sure how much benefit is to be gained receiving further chemotherapy. Will certainly discuss all options including the possibility of hospice care. I will continue to follow Mr. Henderson with you periodically during his hospital stay. Thank you very much for allowing us to participate in his care. KAITLIN
--- NOTE | 2016-06-08 16:14 | Palliative Care Consultation ---
Consultation Date of Consultation: Jun 08, 2016. Requesting Physician: Dr. Mejía Attending Physician: Dr. Cordova Reason for Consultation: Goals of care History of Present Illness This 70 year old male patient presented to the ED four days ago with complaints of seizure activity by his . History obtained from record and patient's . This gentleman has a history of astrocytoma of the brain, currently undergoing chemo. Was recently in hospital from May 16- for pneumonia, was discharged to [facility], and was just discharged home the day of admission. Apparently, he was doing quite well after [facility], and had just got home with his . went to the kitchen to make lunch, and when she came back to patient she found him lying on the floor, difficulty speaking, and with transient right arm weakness. She had trouble getting him up off the floor. She then noted he felt very warm, took his temp which was 101F, so she decided to bring him back to the ED. CT of the head negative for anything acute. CXR: "IMPRESSION: 1. Low lung volumes and cardiomegaly persist. 2. Mild pulmonary vascular congestion has improved. 3. Bibasilar densities have also improved." Brain MRI on 06/05: "IMPRESSION: 1. Study significantly compromised by motion artifact and difficulty positioning the patient. Diffusion-weighted sequence is nearly nondiagnostic. 2. Redemonstration of the left temporal and parietal lobe masses. Associated edema appears similar to prior MRI of May 18, 2016. Apparent diminished enhancement of these lesions when compared to prior study may be technical unless the patient has undergone interval therapy. " Neurology was consulted and ordered EEG showed just showed slowing, no epileptic activity. He has been on IV levetiracetam and high dose IV steroids since admission with little to no improvement of aphasia and ambulatory dysfunction. Patient seen by oncology who stated that benefit from further chemo is uncertain at this time, but options would be discussed. Palliative care consulted to assist with establishing goals of care. I met with the patient and in room 422. Patient is awake, alert and pleasant. He is almost completely aphasic. Is able to follow commands and answer some yes and no questions, but not able to verbalize anything else. , Concepción, at bedside. Her and I spoke outside of room. She states that patient was doing quite well at the time of leaving [facility] four days ago prior to this admission. He was receiving chemo for his astrocytoma and she said he showed a lot of improvement. He was able to ambulate and have a conversation. We discussed goals of care-- he has no advance directive or living will, but he has verbalized that if he were in an end-stage medication condition, he would want to be kept comfortable and not receive any aggressive measures. However, he still had good quality of life prior to this admission and has improved in the past with medical treatment and chemotherapy. For that reason, Concepción would like to discuss options for further chemotherapy. Ultimately the goal is for patient to get back home with home health. If he does not improve and/or there is little hope of recovery, or if there is no further chemo treatment to be offered, Concepción is interested in transitioning to hospice. When I verbalized to the patient what Concepción and I talked about as far as goal of care, he agreed that these were his wishes. His orientation is difficult to assess due to his severe aphasia, but he does seem to answer "yes" and "no" appropriately and is able to follow all commands. Both the patient and agreed that patient's wishes are to be DNR/DNI. Past Medical/Surgical History Medical History: Astrocytoma of brain s/p radiation, currently undergoing chemo Bilateral PE Seizure disorder Constipation Pneumonia Surgical History: Bowel resection Craniotomy for decompression Social History Smoking Status: Never Smoker History of Alcohol Use: No Drug Use: none Marital Status: Housing Status: lives with family Occupation Status: retired Review of Systems Constitutional: + weakness, No chills, No fever Respiratory: No dyspnea on exertion, No shortness of breath Cardiac: No chest pain, No edema Abdomen: + problem reported (doing well with thickened liquids and diet), No nausea, No pain, No vomiting Male : No problem reported Neurologic: + see HPI Allergies Coded Allergies: No Known Allergies (Unverified , 05/16/16) Medications Current Inpatient Medications Medications (Trade) Dose Ordered Sig/Pietro Route Start Time Stop Time Status Last Admin Dose Admin Acetaminophen (Tylenol Tab) 650 mg Q4H PRN PO 06/04/16 00:30 07/04/16 00:29 Ondansetron HCl (Zofran Inj) 4 mg Q6H PRN IV 06/04/16 00:30 07/04/16 00:29 Albuterol (Ventolin Hfa Inhaler) 2 puffs QID PRN INH 06/04/16 00:45 07/04/16 00:44 Aspirin (Ecotrin Tab) 81 mg DAILY PO 06/04/16 09:00 07/04/16 08:59 06/08/16 07:41 81 MG Sertraline HCl 200 mg 200 mg DAILY PO 06/04/16 09:00 07/04/16 08:59 06/08/16 07:41 200 MG Levetiracetam 2000 mg/Dextrose 270 ml @ 999 mls/hr Q12 IV 06/04/16 21:00 07/04/16 20:59 06/08/16 08:09 999 MLS/HR Famotidine/ Dextrose (Pepcid IV Inj/ D5 100ml) 102 ml @ 200 mls/hr Q12H IV 06/04/16 16:00 07/04/16 15:59 06/08/16 03:45 200 MLS/HR Lorazepam (Ativan Inj) 1 mg Q4H PRN IV 06/04/16 10:15 07/04/16 10:14 Lorazepam 0.5 mg 0.5 mg Q4H PRN IV 06/04/16 10:15 07/04/16 10:14 Lorazepam 0.5 mg/ Syringe 1 ml @ 1 mls/min Q4H PRN IV 06/04/16 12:15 07/04/16 12:14 Lorazepam/Syringe (Ativan Inj/ Syringe) 1 ml @ 1 mls/min Q4H PRN IV 06/04/16 12:15 07/04/16 12:14 06/05/16 06:16 1 MLS/MIN Lamotrigine 125 mg 125 mg BID PO 06/05/16 20:00 07/05/16 19:59 06/08/16 07:39 125 MG Dexamethasone Sodium Phosphate/ Syringe (Decadron Inj/ Syringe) 1.5 ml @ 1 mls/min Q6H IV 06/06/16 14:00 07/06/16 13:59 06/08/16 13:54 1 MLS/MIN Physical Exam Date Time Temp Pulse Resp B/P Pulse Ox O2 Delivery O2 Flow Rate FiO2 06/08/16 11:31 36.3 46 18 90 06/08/16 11:00 130/70 06/08/16 08:58 170/90 06/08/16 08:00 92 Nasal Cannula 2.0 06/08/16 07:58 36.4 109 22 186/100 92 06/08/16 03:57 36.4 40 20 91 Room Air 06/08/16 00:16 36.5 79 18 154/84 92 Nasal Cannula 2.0 06/08/16 00:00 92 Room Air 2.0 Nasal Cannula 06/07/16 19:20 36.3 42 16 90 Room Air 06/07/16 16:49 36.3 49 18 130/71 91 Room Air 06/07/16 16:00 92 Nasal Cannula 2.0 General Appearance: no apparent distress Neck: no JVD Respiratory: no respiratory distress, no accessory muscle use, + crackles (few crackles in bilateral bases), + pertinent finding (nasal cannula) Cardiovascular: regular rate, rhythm, no edema, + normal peripheral pulses Abdomen: normal bowel sounds, non tender, + distended (obese abdomen-- normal body habitus) Neurologic/Psychiatric: alert, + aphasia Skin: normal color Assessment & Plan Problem list: Aphasia Weakness Dysphagia- thickened liquids Astrocytoma of brain Seizure disorder- ?breakthrough seizure Goals of care (Z51.5) Palliative care plan: Discussed with patient and Concepción -DNR/DNI per patient and 's wishes. -Goal is to get home with home health vs. hospice depending on whether or not there will be further chemo treatment -If patient does not improve or declines, goal will be for comfort only. -Recommend PT/OT. would like to avoid HSR if possible and would like to get patient home with home services. -Patient denies any pain or symptoms at this time. I will continue to follow along during this hospital stay. Please contact me with any needs. Thank you kindly for this consult.
--- NOTE | 2016-06-08 17:11 | Progress Note ---
Progress Note Date of Service Jun 08, 2016. Progress Note Resident Physician Supervision Note: I was present with Dr. Brown during the history and exam. I discussed the case with the resident and agree with the findings and plan as documented in her separate note. Any exceptions or clarifications are listed here: Upon my examination today, the patient is awake but speaks minimally. He does not his head from time to time, there is not clear to me his understanding of his current condition. Which only his is bedside and she provides all of the history. Unfortunately, she was not present when oncology saw the patient this morning. We discussed the option of home hospice. However at this point, the feels that the patient was having benefit from his prior chemotherapy. When I asked her to explain what improvement she saw in her post chemotherapy, she states that he was much more alert and oriented, and physically independent, post chemotherapy. The last chemotherapy treatment that she recalls was 3 weeks ago, at which time she saw the improvement. When I inquired if he has any side effects from the chemotherapy she indicated that he tolerated it extremely well. Appreciate the palliative care consult. At this point I think we need to help of oncology to clarify further course; if chemotherapy is not deemed prudent, patient is a, appropriate candidate for hospice care. If a trial of continued chemotherapy is recommended, then certainly home nursing and other services would be recommended. We will discuss with patient and again tomorrow. Documented By: Ji Cordova
--- NOTE | 2016-06-08 17:12 | Family Medicine Progress Note ---
Progress Note Date of Service Jun 08, 2016. Subjective Pt evaluation today including: conversation w/ family, physical exam, chart review, lab review Pain: denies pain 70 y/o M with a left sided temporal astrocytoma admitted after he had a seizure episode while at home after being discharged from . Had MRI on 06/06 which revealed no new changes from previous MRI. patient has expressive aphasia but is able to verbalize yes or no and follow commands denies any pain currently. He was scheduled for chemotherapy today, last chemo was 3 weeks ago, states that he had tolerated chemo well in the past and it had made his "mind clear". she wants to see if chemotherapy would be beneficial Constitutional: No chills, No fever Respiratory: No cough Cardiovascular: No chest pain Abdomen: No nausea, No pain, No vomiting Neurologic: + balance problems, + memory loss Psychiatric: + anxiety, + depression symptoms Medications Current Inpatient Medications Medications (Trade) Dose Ordered Sig/Pietro Route Start Time Stop Time Status Last Admin Dose Admin Acetaminophen (Tylenol Tab) 650 mg Q4H PRN PO 06/04/16 00:30 07/04/16 00:29 Ondansetron HCl (Zofran Inj) 4 mg Q6H PRN IV 06/04/16 00:30 07/04/16 00:29 Albuterol (Ventolin Hfa Inhaler) 2 puffs QID PRN INH 06/04/16 00:45 07/04/16 00:44 Aspirin (Ecotrin Tab) 81 mg DAILY PO 06/04/16 09:00 07/04/16 08:59 06/08/16 07:41 81 MG Sertraline HCl 200 mg 200 mg DAILY PO 06/04/16 09:00 07/04/16 08:59 06/08/16 07:41 200 MG Levetiracetam 2000 mg/Dextrose 270 ml @ 999 mls/hr Q12 IV 06/04/16 21:00 07/04/16 20:59 06/08/16 08:09 999 MLS/HR Famotidine/ Dextrose (Pepcid IV Inj/ D5 100ml) 102 ml @ 200 mls/hr Q12H IV 06/04/16 16:00 07/04/16 15:59 06/08/16 16:17 200 MLS/HR Lorazepam (Ativan Inj) 1 mg Q4H PRN IV 06/04/16 10:15 07/04/16 10:14 Lorazepam 0.5 mg 0.5 mg Q4H PRN IV 06/04/16 10:15 07/04/16 10:14 Lorazepam 0.5 mg/ Syringe 1 ml @ 1 mls/min Q4H PRN IV 06/04/16 12:15 07/04/16 12:14 Lorazepam/Syringe (Ativan Inj/ Syringe) 1 ml @ 1 mls/min Q4H PRN IV 06/04/16 12:15 07/04/16 12:14 06/05/16 06:16 1 MLS/MIN Lamotrigine 125 mg 125 mg BID PO 06/05/16 20:00 07/05/16 19:59 06/08/16 07:39 125 MG Dexamethasone Sodium Phosphate/ Syringe (Decadron Inj/ Syringe) 1.5 ml @ 1 mls/min Q6H IV 06/06/16 14:00 07/06/16 13:59 06/08/16 13:54 1 MLS/MIN Objective Vital Signs Date Time Temp Pulse Resp B/P Pulse Ox O2 Delivery O2 Flow Rate FiO2 06/08/16 15:33 36.4 54 20 143/80 92 Nasal Cannula 2.0 06/08/16 11:31 36.3 46 18 90 06/08/16 11:00 130/70 06/08/16 08:58 170/90 06/08/16 08:00 92 Nasal Cannula 2.0 06/08/16 07:58 36.4 109 22 186/100 92 06/08/16 03:57 36.4 40 20 91 Room Air 06/08/16 00:16 36.5 79 18 154/84 92 Nasal Cannula 2.0 06/08/16 00:00 92 Room Air 2.0 Nasal Cannula 06/07/16 19:20 36.3 42 16 90 Room Air 06/07/16 16:49 36.3 49 18 130/71 91 Room Air Physical Exam General Appearance: WD/WN, no apparent distress Eyes: normal inspection ENT: normal ENT inspection, hearing grossly normal Neck: supple Respiratory/Chest: no respiratory distress, no accessory muscle use Cardiovascular: + bradycardia Abdomen: normal bowel sounds, soft Extremities: no pedal edema Neurologic/Psychiatric: alert, + abnormal gait, + aphasia, + depressed affect Assessment and Plan 70 y/o M with a left sided temporal astrocytoma and chronic seizures admitted after he had a seizure episode while at home after being discharged from . Focal seizures : likely sec to astrocytoma - UC/BC negative so far - Electrolytes WNL - MRI - left parietal and temporal lesions unchanged from previous MRI - Continue IV Decadron from edema - Keppra 2000 mg PO BID, lamotrigine 125 mg po BID - Ativan as needed - seizure precautions - fall precautions - aspiration precautions- h/o aspiration, speech recommendation- nectar thick liquids - Oncology consulted- appreciate input Depression: - sertraline 100 mg daily BPH : - tamsulosin 0.4 mg daily DNR Discussed about hospice with his , Concepción , also had palliative consult regarding hospice. she works at [employer] and would like to consider chemotherapy to help his "mind clear" as it seemed to help in the past and he had tolerated it well with no side effects. If chemotherapy is not amenable, they would like to transition to home hospice Resident Physician Supervision Note: I was present with Dr. Brown during the history and exam. I discussed the case with the resident and agree with the findings and plan as documented in the note. Please see my separate documentation also completed this date for additional information. Documented By: Ji Cordova
[2016-06-09] VITALS (9 sets, daily range): BP systolic 128–168; BP diastolic 77–89; PULSE 47–58; TEMP 36.2–36.7; O2SAT 90–94
[2016-06-09] MEDS: DEXAMETHASONE INJ 6 MG in SYRINGE 0 ML IV SCH ×4 (02:09→21:47)
[2016-06-09] MEDS: FAMOTIDINE IV INJ 20 MG in DEXTROSE 5% 100ML 100 ML IV SCH ×2 (05:20→16:18)
[2016-06-09 07:29] LABS: BASO % 0.1 %; BASO ABS # 0.01 K/uL (0-0.2); COMPLETE YES; IG% 0.7 %; LYMPH ABS # 1.51 K/uL (1.2-3.4); MEAN CELL VOLUME 95.2 fL (80-100); MEAN CORPUSCULAR HEMOGLOBIN 32.9 pg (25-34); MEAN CORPUSCULAR HGB CONC 34.6 g/dl (32-36); MEAN PLATELET VOLUME 11.1 fL (7.4-10.4); NEUT % 82.2 %; PLATELET COUNT 182 K/uL (130-400); RED BLOOD COUNT 5.04 M/uL (4.7-6.1); WHITE BLOOD COUNT 13.72 K/uL (4.8-10.8)
[2016-06-09 07:53] LABS: BUN/CREATININE RATIO 32.3 (10-20); CALCIUM 8.4 mg/dl (8.5-10.1); CREATININE 0.5 mg/dl (0.60-1.40); MAGNESIUM 2.2 mg/dl (1.8-2.4); POTASSIUM 3.9 mmol/L (3.5-5.1)
[2016-06-09 07:55] LABS: ALB/GLOB RATIO 0.8 (0.9-2)
[2016-06-09] MEDS: ASPIRIN 81 MG ECTAB PO SCH (09:25)
[2016-06-09] MEDS: SERTRALINE HCL 100 MG TAB PO SCH (09:26)
[2016-06-09] MEDS: LEVETIRACETAM IV 2,000 MG in DEXTROSE 5% 250ML 250 ML IV SCH ×2 (09:26→21:47)
--- NOTE | 2016-06-09 10:44 | Hematology/Oncology Prog Note ---
Hematology/Onc Progress Note Date of Service Jun 09, 2016. Diagnoses Progressive anaplastic astrocytoma Medications Medications Administered Medications (Trade) Dose Ordered Sig/Pietro Route Start Time Stop Time Status Last Admin Dose Admin Acetaminophen 975 mg 975 mg NOW STAT [place] 06/03/16 21:55 06/03/16 21:56 DC 06/03/16 21:55 975 MG Potassium Chloride/Sodium Chloride (Nss + 20meq KCl 1000ml) 1,000 ml @ 100 mls/hr Q10H IV 06/04/16 01:30 06/04/16 15:42 DC 06/04/16 13:28 100 MLS/HR Albuterol (Ventolin Hfa Inhaler) 2 puffs QID PRN INH 06/04/16 00:45 07/04/16 00:44 06/09/16 00:01 2 PUFFS Aspirin (Ecotrin Tab) 81 mg DAILY PO 06/04/16 09:00 07/04/16 08:59 06/09/16 09:25 81 MG Dexamethasone (Decadron Tab) 4 mg QID PO 06/04/16 09:00 06/04/16 10:14 DC 06/04/16 07:46 4 MG Famotidine (Pepcid Tab) 20 mg BID PO 06/04/16 09:00 06/04/16 10:14 DC 06/04/16 07:49 20 MG Lamotrigine (Lamictal Tab) 100 mg BID PO 06/04/16 09:00 06/04/16 10:14 DC 06/04/16 07:46 100 MG Levetiracetam (Keppra Tab) 2,000 mg Q12 PO 06/04/16 09:00 06/04/16 10:14 DC 06/04/16 07:48 2,000 MG Lorazepam (Ativan Tab) 0.75 mg TID PO 06/04/16 09:00 06/04/16 10:14 DC 06/04/16 07:53 0.75 MG Multivitamins (Multivitamin Tab) 1 tab DAILY PO 06/04/16 09:00 06/04/16 10:14 DC 06/04/16 07:49 1 TAB Rosuvastatin Calcium (Crestor Tab) 5 mg DAILY PO 06/04/16 09:00 06/04/16 10:14 DC 06/04/16 07:45 5 MG Sertraline HCl 200 mg 200 mg DAILY PO 06/04/16 09:00 07/04/16 08:59 06/09/16 09:26 200 MG Levetiracetam/ Dextrose (Keppra Iv/D5 250ml) 270 ml @ 999 mls/hr Q12 IV 06/04/16 21:00 07/04/16 20:59 06/09/16 09:26 999 MLS/HR Lamotrigine 100 mg 100 mg BID PO 06/04/16 20:00 06/05/16 09:31 DC 06/05/16 09:17 100 MG Dexamethasone Sodium Phosphate 4 mg/Syringe 1 ml @ 1 mls/min Q6H IV 06/04/16 14:00 06/06/16 08:37 DC 06/06/16 08:15 1 MLS/MIN Famotidine 20 mg/ Dextrose 102 ml @ 200 mls/hr Q12H IV 06/04/16 16:00 07/04/16 15:59 06/09/16 05:20 200 MLS/HR Lorazepam/Syringe (Ativan Inj/ Syringe) 1 ml @ 1 mls/min Q4H PRN IV 06/04/16 12:15 07/04/16 12:14 06/05/16 06:16 1 MLS/MIN Lamotrigine 125 mg 125 mg BID PO 06/05/16 20:00 07/05/16 19:59 06/09/16 09:26 125 MG Dexamethasone Sodium Phosphate/ Syringe (Decadron Inj/ Syringe) 1.5 ml @ 1 mls/min Q6H IV 06/06/16 14:00 07/06/16 13:59 06/09/16 09:26 1 MLS/MIN Subjective He remains aphasic. Not able to really gather new issues or problems Review of Systems: Not able to obtain a good or complete review of systems. There is been no overt bleeding Vital Signs Vital Signs Past 12 Hours Date Time Temp Pulse Resp B/P Pulse Ox O2 Delivery O2 Flow Rate FiO2 06/09/16 07:25 36.2 49 20 151/79 92 Nasal Cannula 3.0 06/09/16 04:35 36.4 51 20 159/85 90 Nasal Cannula 2.0 06/09/16 00:00 Nasal Cannula 3.0 06/08/16 23:38 59 142/68 06/08/16 23:18 36.3 18 94 Nasal Cannula 2.0 Physical Exam Constitutional: vitals are stable. Eyes: Eyes are MANAV EOMI without conjuctival erythema or icterus. ENT: External examination was negative for masses. Neck: Negative for masses or palpable thyromegaly Respiratory: Lung sounds were generally clear bilaterally Cardiovascular: Heart was RRR without significant murmur, gallops aoe rubs Gastrointestinal: No palpable hepatic or splenomegaly. The abdomen was soft with normal bowel sounds. Lymphatic system: there was no palpable peripheral lymphadenopathy Musculoskeletal System: The musculoskeletal system seemed concordant with age. Skin: The skin was negative for jaundice. Neurologic exam: He is a phasic Psychiatric exam: Not able to obtain Laboratory Last 24 Hours Test 06/09/16 06:42 White Blood Count 13.72 K/uL Red Blood Count 5.04 M/uL Hemoglobin 16.6 g/dL Hematocrit 48.0 % Mean Corpuscular Volume 95.2 fL Mean Corpuscular Hemoglobin 32.9 pg Mean Corpuscular Hemoglobin Concent 34.6 g/dl Platelet Count 182 K/uL Mean Platelet Volume 11.1 fL Neutrophils (%) (Auto) 82.2 % Lymphocytes (%) (Auto) 11.0 % Monocytes (%) (Auto) 6.0 % Eosinophils (%) (Auto) 0.0 % Basophils (%) (Auto) 0.1 % Neutrophils # (Auto) 11.28 K/uL Lymphocytes # (Auto) 1.51 K/uL Monocytes # (Auto) 0.83 K/uL Eosinophils # (Auto) 0.00 K/uL Basophils # (Auto) 0.01 K/uL RDW Standard Deviation 50.2 fL RDW Coefficient of Variation 14.4 % Immature Granulocyte % (Auto) 0.7 % Immature Granulocyte # (Auto) 0.09 K/uL Sodium Level 143 mmol/L Potassium Level 3.9 mmol/L Chloride Level 109 mmol/L Carbon Dioxide Level 22 mmol/L Anion Gap 12.0 mmol/L Blood Urea Nitrogen 16 mg/dl Creatinine 0.50 mg/dl Est Creatinine Clear Calc Drug Dose 162.1 ml/min Estimated GFR () 128.2 Estimated GFR (Non- 110.6 BUN/Creatinine Ratio 32.3 Random Glucose 106 mg/dl Calcium Level 8.4 mg/dl Magnesium Level 2.2 mg/dl Total Bilirubin 0.4 mg/dl Aspartate Amino Transf (AST/SGOT) 21 U/L Alanine Aminotransferase (ALT/SGPT) 54 U/L Alkaline Phosphatase 80 U/L Total Protein 5.9 gm/dl Albumin 2.6 gm/dl Globulin 3.3 gm/dl Albumin/Globulin Ratio 0.8 Assessment & Plan Anaplastic astrocytoma progressive. There have been discussions concerning continuing Avastin. There is some literature suggesting that bevacizumab may help. The would like this continued. The dose is 15 mg/kg every 3 weeks. She confirms that his last treatment was 3-4 weeks ago at [place]. Urinalysis done recently is acceptable. Chemistries are acceptable. They are very familiar with bevacizumab and potential side effects. With that then his did sign a consent form and we will write the order for bevacizumab and have a follow-up in our clinic in 3 weeks for his next dose.
[2016-06-09] MEDS ORDERED: BEVACIZUMAB IV SCH (11:30)
[2016-06-09] MEDS ORDERED: SODIUM CHLORIDE 0.9% IV SCH (11:30)
[2016-06-09 11:33] LABS: URINE APPEARANCE CLEAR (CLEAR); URINE BILIRUBIN NEG (NEG); URINE COLOR YELLOW; URINE EPITHELIAL CELL AUTO 20-30 /lpf (0-5); URINE NITRITE NEG (NEG); URINE PH 6.5 (4.5-7.5); URINE SPECIFIC GRAVITY 1.028 (1.000-1.030); UROBILINOGEN NEG (NEG)
[2016-06-09 11:34] LABS: MANUAL MICROSCOPIC REQUIRED? NO; REVIEW REQ? NO
--- NOTE | 2016-06-09 13:09 | Palliative Care Progress Note ---
Palliative Care Progress Note Date of Service Jun 09, 2016. Subjective Pt evaluation today including: conversation w/ patient, conversation w/ family , physical exam, chart review, conversation w/ clinical application consultant (Dr. Cordova) Pain: "no" PO Intake: tolerating diet Voiding: no voiding problems -No pain today. -Still aphasic and unable to form sentences or really any words other than "yes " and "no." -No reported seizure activity. -Patient to receive chemo today as ordered by Dr. Ruiz and will follow up outpatient in three weeks. -See plan below. Review of Systems see HPI. Limited ROS due to patient's mental status and aphasia Objective Vital Signs Date Time Temp Pulse Resp B/P Pulse Ox O2 Delivery O2 Flow Rate FiO2 06/09/16 12:25 Nasal Cannula 3.0 06/09/16 11:50 51 157/77 06/09/16 11:23 36.7 50 18 166/89 94 Nasal Cannula 3.0 06/09/16 11:16 Nasal Cannula 3.0 06/09/16 07:25 36.2 49 20 151/79 92 Nasal Cannula 3.0 06/09/16 04:35 36.4 51 20 159/85 90 Nasal Cannula 2.0 06/09/16 00:00 Nasal Cannula 3.0 06/08/16 23:38 59 142/68 06/08/16 23:18 36.3 18 94 Nasal Cannula 2.0 06/08/16 20:19 36.6 60 20 167/71 93 Nasal Cannula 2.0 06/08/16 16:08 92 Nasal Cannula 2.0 06/08/16 15:33 36.4 54 20 143/80 92 Nasal Cannula 2.0 Physical Exam General Appearance: no apparent distress Eyes: + pertinent finding (glasses) Neck: no JVD Respiratory/Chest: no respiratory distress, no accessory muscle use, + decreased breath sounds, + crackles (few in bilateral bases) Cardiovascular: regular rate, rhythm, no edema, + normal peripheral pulses Abdomen: normal bowel sounds, non tender, + distended (obese abdomen) Neurologic/Psychiatric: alert, + aphasia Skin: normal color Laboratory Results Last 24 Hours Test 06/09/16 06:42 06/09/16 11:00 White Blood Count 13.72 K/uL Red Blood Count 5.04 M/uL Hemoglobin 16.6 g/dL Hematocrit 48.0 % Mean Corpuscular Volume 95.2 fL Mean Corpuscular Hemoglobin 32.9 pg Mean Corpuscular Hemoglobin Concent 34.6 g/dl Platelet Count 182 K/uL Mean Platelet Volume 11.1 fL Neutrophils (%) (Auto) 82.2 % Lymphocytes (%) (Auto) 11.0 % Monocytes (%) (Auto) 6.0 % Eosinophils (%) (Auto) 0.0 % Basophils (%) (Auto) 0.1 % Neutrophils # (Auto) 11.28 K/uL Lymphocytes # (Auto) 1.51 K/uL Monocytes # (Auto) 0.83 K/uL Eosinophils # (Auto) 0.00 K/uL Basophils # (Auto) 0.01 K/uL RDW Standard Deviation 50.2 fL RDW Coefficient of Variation 14.4 % Immature Granulocyte % (Auto) 0.7 % Immature Granulocyte # (Auto) 0.09 K/uL Sodium Level 143 mmol/L Potassium Level 3.9 mmol/L Chloride Level 109 mmol/L Carbon Dioxide Level 22 mmol/L Anion Gap 12.0 mmol/L Blood Urea Nitrogen 16 mg/dl Creatinine 0.50 mg/dl Est Creatinine Clear Calc Drug Dose 162.1 ml/min Estimated GFR () 128.2 Estimated GFR (Non- 110.6 BUN/Creatinine Ratio 32.3 Random Glucose 106 mg/dl Calcium Level 8.4 mg/dl Magnesium Level 2.2 mg/dl Total Bilirubin 0.4 mg/dl Aspartate Amino Transf (AST/SGOT) 21 U/L Alanine Aminotransferase (ALT/SGPT) 54 U/L Alkaline Phosphatase 80 U/L Total Protein 5.9 gm/dl Albumin 2.6 gm/dl Globulin 3.3 gm/dl Albumin/Globulin Ratio 0.8 Urine Color YELLOW Urine Appearance CLEAR Urine pH 6.5 Urine Specific [place] 1.028 Urine Protein NEG Urine Glucose (UA) NEG Urine Ketones NEG Urine Occult Blood NEG Urine Nitrite NEG Urine Bilirubin NEG Urine Urobilinogen NEG Urine Leukocyte Esterase TRACE Urine WBC (Auto) 1-5 /hpf Urine RBC (Auto) 0-4 /hpf Urine Hyaline Casts (Auto) 1-5 /lpf Urine Epithelial Cells (Auto) 20-30 /lpf Urine Bacteria (Auto) NEG Urine Random Total Protein 32.3 mg/dl Assessment and Plan Problem list: Aphasia Weakness Dysphagia- thickened liquids Astrocytoma of brain Seizure disorder- ?breakthrough seizure Goals of care (Z51.5) Palliative care plan: Discussed with patient, patient's Concepc[place], Dr. Cordova and case finishing machine adjuster. -Patient and spoke with Dr. Ruiz today. Patient to receive Avastin injection today and follow up in three weeks for next dose. -Home with home health. -Remains DNR/DNI. -Encouraged patient and to have living will/advance directive done. states they are working on it. I offered our service excellence department. Thank you again for allowing me to care for this patient. Contact me if there are any further palliative care needs. Discharge planning: home with home health
--- NOTE | 2016-06-09 14:29 | Family Medicine Progress Note ---
Progress Note Date of Service Jun 09, 2016. 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 Had MRI on 06/06 which revealed no new changes from previous MRI. patient has expressive aphasia but is able to verbalize yes or no and follow commands denies any pain currently. No new seizure episodes. Constitutional: No chills, No fever Respiratory: No cough Cardiovascular: No chest pain Abdomen: No nausea, No pain, No vomiting Neurologic: + balance problems, + memory loss, + problem reported (aphasia) Medications Current Inpatient Medications Medications (Trade) Dose Ordered Sig/Pietro Route Start Time Stop Time Status Last Admin Dose Admin Acetaminophen (Tylenol Tab) 650 mg Q4H PRN PO 06/04/16 00:30 07/04/16 00:29 Ondansetron HCl (Zofran Inj) 4 mg Q6H PRN IV 06/04/16 00:30 07/04/16 00:29 Albuterol (Ventolin Hfa Inhaler) 2 puffs QID PRN INH 06/04/16 00:45 07/04/16 00:44 06/09/16 00:01 2 PUFFS Aspirin (Ecotrin Tab) 81 mg DAILY PO 06/04/16 09:00 07/04/16 08:59 06/09/16 09:25 81 MG Sertraline HCl 200 mg 200 mg DAILY PO 06/04/16 09:00 07/04/16 08:59 06/09/16 09:26 200 MG Levetiracetam 2000 mg/Dextrose 270 ml @ 999 mls/hr Q12 IV 06/04/16 21:00 07/04/16 20:59 06/09/16 09:26 999 MLS/HR Famotidine/ Dextrose (Pepcid IV Inj/ D5 100ml) 102 ml @ 200 mls/hr Q12H IV 06/04/16 16:00 07/04/16 15:59 06/09/16 05:20 200 MLS/HR Lorazepam (Ativan Inj) 1 mg Q4H PRN IV 06/04/16 10:15 07/04/16 10:14 Lorazepam 0.5 mg 0.5 mg Q4H PRN IV 06/04/16 10:15 07/04/16 10:14 Lorazepam 0.5 mg/ Syringe 1 ml @ 1 mls/min Q4H PRN IV 06/04/16 12:15 07/04/16 12:14 Lorazepam/Syringe (Ativan Inj/ Syringe) 1 ml @ 1 mls/min Q4H PRN IV 06/04/16 12:15 07/04/16 12:14 06/05/16 06:16 1 MLS/MIN Lamotrigine 125 mg 125 mg BID PO 06/05/16 20:00 07/05/16 19:59 06/09/16 09:26 125 MG Dexamethasone Sodium Phosphate 6 mg/Syringe 1.5 ml @ 1 mls/min Q6H IV 06/06/16 14:00 07/06/16 13:59 06/09/16 09:26 1 MLS/MIN Bevacizumab/ Bevacizumab/ Sodium Chloride (Avastin/Avastin/ Nss 100ml) 157.6 ml @ 315.2 mls/ hr DAILY IV 06/09/16 11:30 06/09/16 16:00 06/09/16 12:00 315.2 MLS/HR Objective Vital Signs Date Time Temp Pulse Resp B/P Pulse Ox O2 Delivery O2 Flow Rate FiO2 06/09/16 13:04 51 06/09/16 13:02 36.3 47 20 128/81 92 Nasal Cannula 3.0 06/09/16 12:25 Nasal Cannula 3.0 06/09/16 11:50 51 157/77 06/09/16 11:23 36.7 50 18 166/89 94 Nasal Cannula 3.0 06/09/16 11:16 Nasal Cannula 3.0 06/09/16 07:25 36.2 49 20 151/79 92 Nasal Cannula 3.0 06/09/16 04:35 36.4 51 20 159/85 90 Nasal Cannula 2.0 06/09/16 00:00 Nasal Cannula 3.0 06/08/16 23:38 59 142/68 06/08/16 23:18 36.3 18 94 Nasal Cannula 2.0 06/08/16 20:19 36.6 60 20 167/71 93 Nasal Cannula 2.0 06/08/16 16:08 92 Nasal Cannula 2.0 06/08/16 15:33 36.4 54 20 143/80 92 Nasal Cannula 2.0 Physical Exam General Appearance: WD/WN, no apparent distress, + obese Eyes: normal inspection ENT: normal ENT inspection Neck: supple Respiratory/Chest: chest non-tender, lungs clear, no respiratory distress Cardiovascular: regular rate, rhythm Abdomen: normal bowel sounds, soft Extremities: no pedal edema Neurologic/Psychiatric: alert, normal mood/affect, oriented x 3 Skin: normal color Laboratory Results Last 24 Hours Test 06/09/16 06:42 06/09/16 11:00 White Blood Count 13.72 K/uL Red Blood Count 5.04 M/uL Hemoglobin 16.6 g/dL Hematocrit 48.0 % Mean Corpuscular Volume 95.2 fL Mean Corpuscular Hemoglobin 32.9 pg Mean Corpuscular Hemoglobin Concent 34.6 g/dl Platelet Count 182 K/uL Mean Platelet Volume 11.1 fL Neutrophils (%) (Auto) 82.2 % Lymphocytes (%) (Auto) 11.0 % Monocytes (%) (Auto) 6.0 % Eosinophils (%) (Auto) 0.0 % Basophils (%) (Auto) 0.1 % Neutrophils # (Auto) 11.28 K/uL Lymphocytes # (Auto) 1.51 K/uL Monocytes # (Auto) 0.83 K/uL Eosinophils # (Auto) 0.00 K/uL Basophils # (Auto) 0.01 K/uL RDW Standard Deviation 50.2 fL RDW Coefficient of Variation 14.4 % Immature Granulocyte % (Auto) 0.7 % Immature Granulocyte # (Auto) 0.09 K/uL Sodium Level 143 mmol/L Potassium Level 3.9 mmol/L Chloride Level 109 mmol/L Carbon Dioxide Level 22 mmol/L Anion Gap 12.0 mmol/L Blood Urea Nitrogen 16 mg/dl Creatinine 0.50 mg/dl Est Creatinine Clear Calc Drug Dose 162.1 ml/min Estimated GFR () 128.2 Estimated GFR (Non- 110.6 BUN/Creatinine Ratio 32.3 Random Glucose 106 mg/dl Calcium Level 8.4 mg/dl Magnesium Level 2.2 mg/dl Total Bilirubin 0.4 mg/dl Aspartate Amino Transf (AST/SGOT) 21 U/L Alanine Aminotransferase (ALT/SGPT) 54 U/L Alkaline Phosphatase 80 U/L Total Protein 5.9 gm/dl Albumin 2.6 gm/dl Globulin 3.3 gm/dl Albumin/Globulin Ratio 0.8 Urine Color YELLOW Urine Appearance CLEAR Urine pH 6.5 Urine Specific [place] 1.028 Urine Protein NEG Urine Glucose (UA) NEG Urine Ketones NEG Urine Occult Blood NEG Urine Nitrite NEG Urine Bilirubin NEG Urine Urobilinogen NEG Urine Leukocyte Esterase TRACE Urine WBC (Auto) 1-5 /hpf Urine RBC (Auto) 0-4 /hpf Urine Hyaline Casts (Auto) 1-5 /lpf Urine Epithelial Cells (Auto) 20-30 /lpf Urine Bacteria (Auto) NEG Urine Random Total Protein 32.3 mg/dl Assessment and Plan 70 y/o M with a left sided temporal astrocytoma and chronic seizures admitted after he had a seizure episode while at home after being discharged from . patients wanted to try chemotherapy as she thought it made his "mind clear " and he had tolerated it well Focal seizures : likely sec to astrocytoma - UC/BC negative so far - Electrolytes WNL - MRI - left parietal and temporal lesions unchanged from previous MRI - Continue IV Decadron from edema - Keppra 2000 mg PO BID, lamotrigine 125 mg po BID - Ativan as needed - seizure precautions - fall precautions - aspiration precautions- h/o aspiration, speech recommendation- nectar thick liquids - Oncology consulted- appreciate input - bevacizumab 15 mg/kg every 3 weeks per oncology, first dose here today , next dose in 3 weeks as an OP appreciate palliative consult input Depression: - sertraline 100 mg daily BPH : - tamsulosin 0.4 mg daily DNR Dispo: receiving bevacizumab today, anticipate d/c to home with home health tomorrow Resident Physician Supervision Note: I interviewed and examined the patient. Discussed with Dr. Brown and agree with findings and plan as documented in the note. Upon my examination, the patient was without complaints. He tolerated his dose of chemotherapy today. Tentative plan at this point is discharge home tomorrow with home health services. I had discussed hospice services with the patient but at this point both he and his are interested in pursuing additional rounds of chemotherapy. It does seem that home health services will be able to meet the needs of the patient in terms of medical care and comfort. Documented By: Ji Cordova Documented By: Ji Cordova
[2016-06-10] VITALS (9 sets, daily range): BP systolic 90–161; BP diastolic 51–84; PULSE 51–82; TEMP 36.2–37; O2SAT 90–98
[2016-06-10] MEDS: ACETAMINOPHEN 325 MG TAB PO PRN (01:32)
[2016-06-10] MEDS: DEXAMETHASONE INJ 6 MG in SYRINGE 0 ML IV SCH ×4 (01:33→21:05)
[2016-06-10] MEDS: FAMOTIDINE IV INJ 20 MG in DEXTROSE 5% 100ML 100 ML IV SCH ×2 (05:08→17:46)
[2016-06-10] MEDS: SERTRALINE HCL 100 MG TAB PO SCH (08:45)
[2016-06-10] MEDS: ASPIRIN 81 MG ECTAB PO SCH (08:45)
[2016-06-10] MEDS: LEVETIRACETAM IV 2,000 MG in DEXTROSE 5% 250ML 250 ML IV SCH ×2 (08:46→20:24)
--- NOTE | 2016-06-10 10:38 | Hematology/Oncology Prog Note ---
Hematology/Onc Progress Note Date of Service Jun 10, 2016. Diagnoses Progressive anaplastic astrocytoma Medications Medications Administered Medications (Trade) Dose Ordered Sig/Pietro Route Start Time Stop Time Status Last Admin Dose Admin Acetaminophen 975 mg 975 mg NOW STAT HI 06/03/16 21:55 06/03/16 21:56 DC 06/03/16 21:55 975 MG Potassium Chloride/Sodium Chloride (Nss + 20meq KCl 1000ml) 1,000 ml @ 100 mls/hr Q10H IV 06/04/16 01:30 06/04/16 15:42 DC 06/04/16 13:28 100 MLS/HR Acetaminophen (Tylenol Tab) 650 mg Q4H PRN PO 06/04/16 00:30 07/04/16 00:29 06/10/16 01:32 650 MG Albuterol (Ventolin Hfa Inhaler) 2 puffs QID PRN INH 06/04/16 00:45 07/04/16 00:44 06/09/16 00:01 2 PUFFS Aspirin (Ecotrin Tab) 81 mg DAILY PO 06/04/16 09:00 07/04/16 08:59 06/10/16 08:45 81 MG Dexamethasone (Decadron Tab) 4 mg QID PO 06/04/16 09:00 06/04/16 10:14 DC 06/04/16 07:46 4 MG Famotidine (Pepcid Tab) 20 mg BID PO 06/04/16 09:00 06/04/16 10:14 DC 06/04/16 07:49 20 MG Lamotrigine (Lamictal Tab) 100 mg BID PO 06/04/16 09:00 06/04/16 10:14 DC 06/04/16 07:46 100 MG Levetiracetam (Keppra Tab) 2,000 mg Q12 PO 06/04/16 09:00 06/04/16 10:14 DC 06/04/16 07:48 2,000 MG Lorazepam (Ativan Tab) 0.75 mg TID PO 06/04/16 09:00 06/04/16 10:14 DC 06/04/16 07:53 0.75 MG Multivitamins (Multivitamin Tab) 1 tab DAILY PO 06/04/16 09:00 06/04/16 10:14 DC 06/04/16 07:49 1 TAB Rosuvastatin Calcium (Crestor Tab) 5 mg DAILY PO 06/04/16 09:00 06/04/16 10:14 DC 06/04/16 07:45 5 MG Sertraline HCl 200 mg 200 mg DAILY PO 06/04/16 09:00 07/04/16 08:59 06/10/16 08:45 200 MG Levetiracetam/ Dextrose (Keppra Iv/D5 250ml) 270 ml @ 999 mls/hr Q12 IV 06/04/16 21:00 07/04/16 20:59 06/10/16 08:46 999 MLS/HR Lamotrigine 100 mg 100 mg BID PO 06/04/16 20:00 06/05/16 09:31 DC 06/05/16 09:17 100 MG Dexamethasone Sodium Phosphate 4 mg/Syringe 1 ml @ 1 mls/min Q6H IV 06/04/16 14:00 06/06/16 08:37 DC 06/06/16 08:15 1 MLS/MIN Famotidine 20 mg/ Dextrose 102 ml @ 200 mls/hr Q12H IV 06/04/16 16:00 07/04/16 15:59 06/10/16 05:08 200 MLS/HR Lorazepam/Syringe (Ativan Inj/ Syringe) 1 ml @ 1 mls/min Q4H PRN IV 06/04/16 12:15 07/04/16 12:14 06/05/16 06:16 1 MLS/MIN Lamotrigine 125 mg 125 mg BID PO 06/05/16 20:00 07/05/16 19:59 06/10/16 08:45 125 MG Dexamethasone Sodium Phosphate 6 mg/Syringe 1.5 ml @ 1 mls/min Q6H IV 06/06/16 14:00 07/06/16 13:59 06/10/16 08:45 1 MLS/MIN Bevacizumab/ Bevacizumab/ Sodium Chloride (Avastin/Avastin/ Nss 100ml) 157.6 ml @ 315.2 mls/ hr DAILY IV 06/09/16 11:30 06/09/16 16:02 DC 06/09/16 12:00 315.2 MLS/HR Subjective He remains aphasic. Received Avastin yesterday. Seems to be stable Review of Systems: Not able to obtain Vital Signs Vital Signs Past 12 Hours Date Time Temp Pulse Resp B/P Pulse Ox O2 Delivery O2 Flow Rate FiO2 06/10/16 07:05 36.5 53 17 146/77 93 Room Air 06/10/16 04:09 37.0 52 18 161/84 94 Room Air 06/10/16 00:21 37.0 72 20 150/82 90 Room Air 06/10/16 00:05 92 Nasal Cannula 3.0 Physical Exam Constitutional: vitals are stable. A phasic gentleman. He does respond slightly to verbal questions Eyes: Eyes are MANAV EOMI without conjuctival erythema or icterus. ENT: External examination was negative for masses. Neck: Negative for masses or palpable thyromegaly Respiratory: Lung sounds were generally clear bilaterally Cardiovascular: Heart was RRR without significant murmur, gallops aoe rubs Gastrointestinal: No palpable hepatic or splenomegaly. The abdomen was soft with normal bowel sounds. Lymphatic system: there was no palpable peripheral lymphadenopathy Musculoskeletal System: The musculoskeletal system seemed concordant with age. Skin: The skin was negative for jaundice. Neurologic exam: The exam was negative for any focal findings. Deep tendon reflexes were equal and symmetrical. Psychiatric exam: Was essentially negative with normal mood and effect. Extremities: Negative for edema erythema Laboratory Last 24 Hours Test 06/09/16 11:00 Urine Color YELLOW Urine Appearance CLEAR Urine pH 6.5 Urine Specific [place] 1.028 Urine Protein NEG Urine Glucose (UA) NEG Urine Ketones NEG Urine Occult Blood NEG Urine Nitrite NEG Urine Bilirubin NEG Urine Urobilinogen NEG Urine Leukocyte Esterase TRACE Urine WBC (Auto) 1-5 /hpf Urine RBC (Auto) 0-4 /hpf Urine Hyaline Casts (Auto) 1-5 /lpf Urine Epithelial Cells (Auto) 20-30 /lpf Urine Bacteria (Auto) NEG Urine Random Total Protein 32.3 mg/dl Assessment & Plan Anaplastic astrocytoma progressive. He did receive Avastin yesterday at 15 mg/ kg and appears to tolerated it quite well. The next dose will be in 3 weeks. A follow-up will be arranged with blood work and another urinalysis at that time.
--- NOTE | 2016-06-10 16:40 | Family Medicine Progress Note ---
Progress Note Date of Service Jun 10, 2016. Subjective Pt evaluation today including: physical exam, chart review, lab review 70 y/o M with left sided astrocytoma and chronic seizures here after focal seizure received chemotherapy yesterday which he tolerated well. No new seizure activity noted Additional Comments: limited considering aphasia and his is not with him here today . appears more agitated Medications Current Inpatient Medications Medications (Trade) Dose Ordered Sig/Pietro Route Start Time Stop Time Status Last Admin Dose Admin Acetaminophen (Tylenol Tab) 650 mg Q4H PRN PO 06/04/16 00:30 07/04/16 00:29 06/10/16 01:32 650 MG Ondansetron HCl (Zofran Inj) 4 mg Q6H PRN IV 06/04/16 00:30 07/04/16 00:29 Albuterol (Ventolin Hfa Inhaler) 2 puffs QID PRN INH 06/04/16 00:45 07/04/16 00:44 06/09/16 00:01 2 PUFFS Aspirin (Ecotrin Tab) 81 mg DAILY PO 06/04/16 09:00 07/04/16 08:59 06/10/16 08:45 81 MG Sertraline HCl 200 mg 200 mg DAILY PO 06/04/16 09:00 07/04/16 08:59 06/10/16 08:45 200 MG Levetiracetam 2000 mg/Dextrose 270 ml @ 999 mls/hr Q12 IV 06/04/16 21:00 07/04/16 20:59 06/10/16 08:46 999 MLS/HR Famotidine/ Dextrose (Pepcid IV Inj/ D5 100ml) 102 ml @ 200 mls/hr Q12H IV 06/04/16 16:00 07/04/16 15:59 06/10/16 05:08 200 MLS/HR Lorazepam (Ativan Inj) 1 mg Q4H PRN IV 06/04/16 10:15 07/04/16 10:14 Lorazepam 0.5 mg 0.5 mg Q4H PRN IV 06/04/16 10:15 07/04/16 10:14 Lorazepam 0.5 mg/ Syringe 1 ml @ 1 mls/min Q4H PRN IV 06/04/16 12:15 07/04/16 12:14 Lorazepam/Syringe (Ativan Inj/ Syringe) 1 ml @ 1 mls/min Q4H PRN IV 06/04/16 12:15 07/04/16 12:14 06/05/16 06:16 1 MLS/MIN Lamotrigine 125 mg 125 mg BID PO 06/05/16 20:00 07/05/16 19:59 06/10/16 08:45 125 MG Dexamethasone Sodium Phosphate/ Syringe (Decadron Inj/ Syringe) 1.5 ml @ 1 mls/min Q6H IV 06/06/16 14:00 07/06/16 13:59 06/10/16 14:22 1 MLS/MIN Oseltamivir Phosphate (Tamiflu Cap) 75 mg DAILY PO 06/11/16 08:00 06/21/16 07:59 Objective Vital Signs Date Time Temp Pulse Resp B/P Pulse Ox O2 Delivery O2 Flow Rate FiO2 06/10/16 11:50 36.2 62 17 134/82 95 Nasal Cannula 2.0 06/10/16 11:41 Room Air 06/10/16 07:05 36.5 53 17 146/77 93 Room Air 06/10/16 04:09 37.0 52 18 161/84 94 Room Air 06/10/16 00:21 37.0 72 20 150/82 90 Room Air 06/10/16 00:05 92 Nasal Cannula 3.0 06/09/16 20:51 36.6 58 18 168/86 92 3.0 Physical Exam General Appearance: WD/WN, + obese Neck: supple Respiratory/Chest: lungs clear, normal breath sounds, no respiratory distress, no accessory muscle use Cardiovascular: regular rate, rhythm Abdomen: normal bowel sounds, non tender, soft Extremities: no pedal edema Neurologic/Psychiatric: + pertinent finding (some agitation per baseline) Skin: normal color Assessment and Plan 70 y/o M with a left sided temporal astrocytoma and chronic seizures admitted after he had a seizure episode while at home after being discharged from . patients wanted to try chemotherapy as she thought it made his "mind clear " and he had tolerated it well, received chemo yesterday which he tolerated well. His was diagnosed with influenza and is his primary caregiver, will hold discharge today Focal seizures : likely sec to astrocytoma - UC/BC negative so far - Electrolytes WNL - MRI - left parietal and temporal lesions unchanged from previous MRI - Continue IV Decadron from edema - Keppra 2000 mg PO BID, lamotrigine 125 mg po BID - Ativan as needed - seizure precautions - fall precautions - aspiration precautions- h/o aspiration, speech recommendation- nectar thick liquids - Oncology consulted- appreciate input - bevacizumab 15 mg/kg every 3 weeks per oncology, first dose yesterday, next dose in 3 weeks as an OP appreciate palliative consult input Exposure to influenza: PCR influenza today- pending - prophylaxis with Tamiflu 75 mg PO daily as was diagnosed with influenza Depression: - sertraline 100 mg daily BPH : - tamsulosin 0.4 mg daily DNR Dispo: anticipate d/c home but his primary critical care registered nurse was diagnosed with influenza, will hold off for today , so they can arrange for other caretakers Resident Physician Supervision Note: I was present with Dr. Brown during the history and exam. I discussed the case with the resident and agree with the findings and plan as documented in the note. Any exceptions or clarifications are listed here: While discharge was anticipated for today, unfortunately the patient's became ill with influenza. As such we started the patient on Tamiflu 75 mg daily for prophylaxis. At this time a flu swab is pending; should this be positive we will increase his Tamiflu to 75 mg twice a day and place on isolation. Discharge disposition is pending reassessment tomorrow of the home situation. Documented By: Ji Cordova
[2016-06-10] MEDS: OSELTAMIVIR PHOSPHATE 75 MG CAP PO SCH (20:27)
[2016-06-10 23:34] LABS: INFLUENZA A PCR Neg for Influ A (NEG); INFLUENZA B PCR Neg for Influ B (NEG)
[2016-06-11] VITALS (7 sets, daily range): BP systolic 151–159; BP diastolic 77–90; PULSE 52–65; TEMP 36.3–36.6; O2SAT 92–95
[2016-06-11] MEDS: DEXAMETHASONE INJ 6 MG in SYRINGE 0 ML IV SCH ×4 (02:30→21:06)
[2016-06-11] MEDS: ASPIRIN 81 MG ECTAB PO SCH (08:15)
[2016-06-11] MEDS: FAMOTIDINE IV INJ 20 MG in DEXTROSE 5% 100ML 100 ML IV SCH ×2 (08:15→17:29)
[2016-06-11] MEDS: OSELTAMIVIR PHOSPHATE 75 MG CAP PO SCH (08:16)
[2016-06-11] MEDS: SERTRALINE HCL 100 MG TAB PO SCH (08:16)
[2016-06-11] MEDS: LEVETIRACETAM IV 2,000 MG in DEXTROSE 5% 250ML 250 ML IV SCH ×2 (09:39→21:06)
--- NOTE | 2016-06-11 10:06 | Hematology/Oncology Prog Note ---
Hematology/Onc Progress Note Date of Service Jun 11, 2016. Diagnoses Progressive anaplastic astrocytoma Medications Medications Administered Medications (Trade) Dose Ordered Sig/Pietro Route Start Time Stop Time Status Last Admin Dose Admin Acetaminophen 975 mg 975 mg NOW STAT MA 06/03/16 21:55 06/03/16 21:56 DC 06/03/16 21:55 975 MG Potassium Chloride/Sodium Chloride (Nss + 20meq KCl 1000ml) 1,000 ml @ 100 mls/hr Q10H IV 06/04/16 01:30 06/04/16 15:42 DC 06/04/16 13:28 100 MLS/HR Acetaminophen (Tylenol Tab) 650 mg Q4H PRN PO 06/04/16 00:30 07/04/16 00:29 06/10/16 01:32 650 MG Albuterol (Ventolin Hfa Inhaler) 2 puffs QID PRN INH 06/04/16 00:45 07/04/16 00:44 06/09/16 00:01 2 PUFFS Aspirin (Ecotrin Tab) 81 mg DAILY PO 06/04/16 09:00 07/04/16 08:59 06/11/16 08:15 81 MG Dexamethasone (Decadron Tab) 4 mg QID PO 06/04/16 09:00 06/04/16 10:14 DC 06/04/16 07:46 4 MG Famotidine (Pepcid Tab) 20 mg BID PO 06/04/16 09:00 06/04/16 10:14 DC 06/04/16 07:49 20 MG Lamotrigine (Lamictal Tab) 100 mg BID PO 06/04/16 09:00 06/04/16 10:14 DC 06/04/16 07:46 100 MG Levetiracetam (Keppra Tab) 2,000 mg Q12 PO 06/04/16 09:00 06/04/16 10:14 DC 06/04/16 07:48 2,000 MG Lorazepam (Ativan Tab) 0.75 mg TID PO 06/04/16 09:00 06/04/16 10:14 DC 06/04/16 07:53 0.75 MG Multivitamins (Multivitamin Tab) 1 tab DAILY PO 06/04/16 09:00 06/04/16 10:14 DC 06/04/16 07:49 1 TAB Rosuvastatin Calcium (Crestor Tab) 5 mg DAILY PO 06/04/16 09:00 06/04/16 10:14 DC 06/04/16 07:45 5 MG Sertraline HCl 200 mg 200 mg DAILY PO 06/04/16 09:00 07/04/16 08:59 06/11/16 08:16 200 MG Levetiracetam/ Dextrose (Keppra Iv/D5 250ml) 270 ml @ 999 mls/hr Q12 IV 06/04/16 21:00 07/04/16 20:59 06/11/16 09:39 999 MLS/HR Lamotrigine 100 mg 100 mg BID PO 06/04/16 20:00 06/05/16 09:31 DC 06/05/16 09:17 100 MG Dexamethasone Sodium Phosphate 4 mg/Syringe 1 ml @ 1 mls/min Q6H IV 06/04/16 14:00 06/06/16 08:37 DC 06/06/16 08:15 1 MLS/MIN Famotidine 20 mg/ Dextrose 102 ml @ 200 mls/hr Q12H IV 06/04/16 16:00 07/04/16 15:59 06/11/16 08:15 200 MLS/HR Lorazepam/Syringe (Ativan Inj/ Syringe) 1 ml @ 1 mls/min Q4H PRN IV 06/04/16 12:15 07/04/16 12:14 06/05/16 06:16 1 MLS/MIN Lamotrigine 125 mg 125 mg BID PO 06/05/16 20:00 07/05/16 19:59 06/11/16 08:15 125 MG Dexamethasone Sodium Phosphate 6 mg/Syringe 1.5 ml @ 1 mls/min Q6H IV 06/06/16 14:00 07/06/16 13:59 06/11/16 08:15 1 MLS/MIN Bevacizumab/ Bevacizumab/ Sodium Chloride (Avastin/Avastin/ Nss 100ml) 157.6 ml @ 315.2 mls/ hr DAILY IV 06/09/16 11:30 06/09/16 16:02 DC 06/09/16 12:00 315.2 MLS/HR Oseltamivir Phosphate (Tamiflu Cap) 75 mg DAILY PO 06/11/16 08:00 06/21/16 07:59 06/11/16 08:16 75 MG Subjective A phase it has before. Really doesn't offer any new symptoms. Perhaps slightly more agitated Review of Systems: Unable to obtain Vital Signs Vital Signs Past 12 Hours Date Time Temp Pulse Resp B/P Pulse Ox O2 Delivery O2 Flow Rate FiO2 06/11/16 08:15 36.3 52 20 159/82 92 Room Air 06/11/16 00:20 92 Room Air 06/10/16 23:57 36.6 57 22 158/83 91 Room Air Physical Exam Constitutional: vitals are stable. Eyes: Eyes are MANAV EOMI without conjuctival erythema or icterus. ENT: External examination was negative for masses. Neck: Negative for masses or palpable thyromegaly Respiratory: Lung sounds were generally clear bilaterally Cardiovascular: Heart was RRR without significant murmur, gallops aoe rubs Gastrointestinal: No palpable hepatic or splenomegaly. The abdomen was soft with normal bowel sounds. Lymphatic system: there was no palpable peripheral lymphadenopathy Musculoskeletal System: The musculoskeletal system seemed concordant with age. Skin: The skin was negative for jaundice. Neurologic exam: A phasic as before Psychiatric exam: Was essentially negative with normal mood and effect. Laboratory Last 24 Hours Test 06/10/16 21:10 Influenza Type A (RT-PCR) Neg for Influ A Influenza Type B (RT-PCR) Neg for Influ B Assessment & Plan Anaplastic astrocytoma progressive. His next dose of Avastin will be in 3 weeks and that appointment is been scheduled. No further seizure activity. I suspect discharge is eminent. We will sign off for now but please don't hesitate to reconsult if necessary..
[2016-06-11] MEDS: ACETAMINOPHEN 325 MG TAB PO PRN ×2 (13:36→19:52)
[2016-06-11] MEDS: LORAZEPAM 2 MG/ML 1 ML VIAL IV PRN (13:41)
--- NOTE | 2016-06-11 16:04 | Progress Note ---
Subjective Date of Service: Jun 11, 2016. Subjective Pt evaluation today including: physical exam, chart review, lab review, review of studies Pain: denies Problem List Medical Problems: (1) Altered mental status Status: Acute (2) Altered mental status Status: Acute (3) Aphasia Status: Acute (4) Aphasia Status: Acute (5) Astrocytoma Status: Acute (6) Bilateral pulmonary embolism Status: Acute (7) Brain tumor Status: Acute (8) Constipation Status: Acute (9) Difficulty with speech Status: Acute (10) Fever Status: Acute (11) Fever Status: Acute (12) Leg pain, left Status: Acute (13) No history of seizures Status: Chronic (14) Partial seizure Status: Acute (15) Pneumonia Status: Acute (16) Right arm weakness Status: Acute (17) Right arm weakness Status: Acute (18) Seizure Status: Acute (19) SOB (shortness of breath) Status: Acute (20) Vasogenic brain edema Status: Acute (21) Vasogenic brain edema Status: Acute Review of Systems Constitutional: No chills, No fever Eyes: No problem reported ENT: + trouble swallowing Respiratory: + cough Cardiac: No chest pain Neurologic: + memory loss Psychiatric: + anxiety Medications Acetaminophen (Tylenol Tab) 650 mg Q4H PRN PO Last administered on 06/11/16 13 :36; Admin Dose 650 MG; Start 06/04/16 at 00:30; Stop 07/04/16 at 00:29 Albuterol (Ventolin Hfa Inhaler) 2 puffs QID PRN INH Last administered on 00:01; Admin Dose 2 PUFFS; Start 06/04/16 at 00:45; Stop 07/04/16 at 00:44 Aspirin (Ecotrin Tab) 81 mg DAILY PO Last administered on 06/11/16 08:15; Admin Dose 81 MG; Start 06/04/16 at 09:00; Stop 07/04/16 at 08:59 Dexamethasone Sodium Phosphate/ Syringe (Decadron Inj/ Syringe) 1.5 ml @ 1 mls/ min Q6H IV Last administered on 06/11/16 13:35; Admin Dose 1 MLS/MIN; Start at 14:00; Stop 07/06/16 at 13:59 Famotidine/ Dextrose (Pepcid IV Inj/ D5 100ml) 102 ml @ 200 mls/hr Q12H IV Last administered on 06/11/16 08:15; Admin Dose 200 MLS/HR; Start 06/04/16 at 16 :00; Stop 07/04/16 at 15:59 Lamotrigine 125 mg 125 mg BID PO Last administered on 06/11/16 08:15; Admin Dose 125 MG; Start 06/05/16 at 20:00; Stop 07/05/16 at 19:59 Levetiracetam 2000 mg/Dextrose 270 ml @ 999 mls/hr Q12 IV Last administered on 06/11/16 09:39; Admin Dose 999 MLS/HR; Start 06/04/16 at 21:00; Stop 07/04/16 at 20:59 Lorazepam (Ativan Inj) 1 mg Q4H PRN IV Last administered on 06/11/16 13:41; Admin Dose 1 MG; Start 06/04/16 at 10:15; Stop 07/04/16 at 10:14 Lorazepam 0.5 mg 0.5 mg Q4H PRN IV; Start 06/04/16 at 10:15; Stop 07/04/16 at 10:14 Lorazepam 0.5 mg/ Syringe 1 ml @ 1 mls/min Q4H PRN IV; Start 06/04/16 at 12:15 ; Stop 07/04/16 at 12:14 Lorazepam/Syringe (Ativan Inj/ Syringe) 1 ml @ 1 mls/min Q4H PRN IV Last administered on 06/05/16 06:16; Admin Dose 1 MLS/MIN; Start 06/04/16 at 12:15; Stop 07/04/16 at 12:14 Ondansetron HCl (Zofran Inj) 4 mg Q6H PRN IV; Start 06/04/16 at 00:30; Stop at 00:29 Oseltamivir Phosphate (Tamiflu Cap) 75 mg DAILY PO Last administered on 08:16; Admin Dose 75 MG; Start 06/11/16 at 08:00; Stop 06/21/16 at 07:59 Sertraline HCl 200 mg 200 mg DAILY PO Last administered on 06/11/16 08:16; Admin Dose 200 MG; Start 06/04/16 at 09:00; Stop 07/04/16 at 08:59 Objective Vital Signs Date Time Temp Pulse Resp B/P Pulse Ox O2 Delivery O2 Flow Rate FiO2 06/11/16 11:24 36.3 59 28 158/90 95 Room Air 06/11/16 10:12 Nasal Cannula 2.0 06/11/16 08:15 36.3 52 20 159/82 92 Room Air 06/11/16 00:20 92 Room Air 06/10/16 23:57 36.6 57 22 158/83 91 Room Air 06/10/16 20:13 36.4 51 24 136/79 93 Room Air 06/10/16 16:01 92 Room Air Physical Exam General Appearance: + cachetic Eyes: PERRL, EOMI ENT: hearing grossly normal Neck: supple, no adenopathy Respiratory/Chest: lungs clear, normal breath sounds Cardiovascular: regular rate, rhythm Abdomen: non tender, soft Neurologic/Psychiatric: alert, + aphasia Laboratory Results Last 24 Hours Test 06/10/16 21:10 Influenza Type A (RT-PCR) Neg for Influ A Influenza Type B (RT-PCR) Neg for Influ B Assessment and Plan 70-year-old male with left sided temporal astrocytoma admitted with episode of seizures. He is pending discharge but unfortunately his , his primary caregiver, has been diagnosed with influenza type A. Discharge is uncertain at this time. Seizure secondary to astrocytoma Continue Keppra 2000 mg, lamotrigine 125 mg po BID Ativan when necessary Home hospice will discuss with the patient and his however they wish to continue chemotherapy of the direction of oncology. Exposure to influenza The patient's nasal swab was negative for influenza A and B. The patient is on prophylaxis with Tamiflu 75 mg by mouth daily. Dosing will be continued for 10 days. Resident Physician Supervision Note: I separately examined the patient and discussed the case with the resident physician. Please see the resident physicians dictation for additional details. Documented By: Ji Cordova Continued [facility] stay due to: home environment unsafe for pt Discharge planning: home with home health
--- NOTE | 2016-06-11 16:33 | DIAGNOSTIC IMAGING REPORT ---
TWO VIEW CHEST CLINICAL HISTORY: Choking episode. FINDINGS: AP and lateral chest radiographs are compared to study dated 06/03/2016. Correlation is made with chest CT dated 04/17/2015. The examination is degraded by large body habitus and patient rotation on the AP view. The heart is enlarged and there is atherosclerotic calcification of the thoracic ureter. Pulmonary vascular congestion persists. There are low lung volumes with bibasilar atelectasis. Small pleural effusions are suspected. There is no pneumothorax. The skeletal structures are osteopenic. Degenerative changes noted throughout the thoracic spine. IMPRESSION: 1. Cardiomegaly with evidence of mild congestive failure. 2. Suspect small pleural effusions. 3. Low lung volumes and bibasilar atelectasis. Electronically signed by: Guilherme Montgomery M.D. 06/11/2016 4:31 PM Dictated Date/Time: 06/11/2016 4:29 PM
--- NOTE | 2016-06-11 18:03 | Family Medicine Progress Note ---
Progress Note Date of Service Jun 11, 2016. Subjective Pt evaluation today including: conversation w/ patient, physical exam, chart review, lab review has been seizure free. been receiving prophylaxis for influenza as was positive. no symptoms in him though Additional Comments: limited due to aphasia Medications Current Inpatient Medications Medications (Trade) Dose Ordered Sig/Pietro Route Start Time Stop Time Status Last Admin Dose Admin Acetaminophen (Tylenol Tab) 650 mg Q4H PRN PO 06/04/16 00:30 07/04/16 00:29 06/11/16 13:36 650 MG Ondansetron HCl (Zofran Inj) 4 mg Q6H PRN IV 06/04/16 00:30 07/04/16 00:29 Albuterol (Ventolin Hfa Inhaler) 2 puffs QID PRN INH 06/04/16 00:45 07/04/16 00:44 06/09/16 00:01 2 PUFFS Aspirin (Ecotrin Tab) 81 mg DAILY PO 06/04/16 09:00 07/04/16 08:59 06/11/16 08:15 81 MG Sertraline HCl 200 mg 200 mg DAILY PO 06/04/16 09:00 07/04/16 08:59 06/11/16 08:16 200 MG Levetiracetam 2000 mg/Dextrose 270 ml @ 999 mls/hr Q12 IV 06/04/16 21:00 07/04/16 20:59 06/11/16 09:39 999 MLS/HR Famotidine/ Dextrose (Pepcid IV Inj/ D5 100ml) 102 ml @ 200 mls/hr Q12H IV 06/04/16 16:00 07/04/16 15:59 06/11/16 17:29 200 MLS/HR Lorazepam (Ativan Inj) 1 mg Q4H PRN IV 06/04/16 10:15 07/04/16 10:14 06/11/16 13:41 1 MG Lorazepam 0.5 mg 0.5 mg Q4H PRN IV 06/04/16 10:15 07/04/16 10:14 Lorazepam 0.5 mg/ Syringe 1 ml @ 1 mls/min Q4H PRN IV 06/04/16 12:15 07/04/16 12:14 Lorazepam/Syringe (Ativan Inj/ Syringe) 1 ml @ 1 mls/min Q4H PRN IV 06/04/16 12:15 07/04/16 12:14 06/05/16 06:16 1 MLS/MIN Lamotrigine 125 mg 125 mg BID PO 06/05/16 20:00 07/05/16 19:59 06/11/16 08:15 125 MG Dexamethasone Sodium Phosphate/ Syringe (Decadron Inj/ Syringe) 1.5 ml @ 1 mls/min Q6H IV 06/06/16 14:00 07/06/16 13:59 06/11/16 13:35 1 MLS/MIN Oseltamivir Phosphate (Tamiflu Cap) 75 mg DAILY PO 06/11/16 08:00 06/21/16 07:59 06/11/16 08:16 75 MG Objective Vital Signs Date Time Temp Pulse Resp B/P Pulse Ox O2 Delivery O2 Flow Rate FiO2 06/11/16 15:57 36.6 65 20 155/89 94 Humidified Air 1.0 06/11/16 11:24 36.3 59 28 158/90 95 Room Air 06/11/16 10:12 Nasal Cannula 2.0 06/11/16 08:15 36.3 52 20 159/82 92 Room Air 06/11/16 00:20 92 Room Air 06/10/16 23:57 36.6 57 22 158/83 91 Room Air 06/10/16 20:13 36.4 51 24 136/79 93 Room Air Physical Exam General Appearance: WD/WN, no apparent distress Eyes: normal inspection Neck: supple Respiratory/Chest: chest non-tender, lungs clear Cardiovascular: regular rate, rhythm Abdomen: normal bowel sounds, non tender Extremities: no pedal edema Neurologic/Psychiatric: alert Skin: normal color Laboratory Results Last 24 Hours Test 06/10/16 21:10 Influenza Type A (RT-PCR) Neg for Influ A Influenza Type B (RT-PCR) Neg for Influ B Assessment and Plan 70 y/o M with a left sided temporal astrocytoma and chronic seizures admitted after he had a seizure episode while at home after being discharged from . patients wanted to try chemotherapy as she thought it made his "mind clear " and he had tolerated it well, received chemo His was diagnosed with influenza and is his primary caregiver, discharge uncertain at this time. had a choking episode during lunch this afternoon Focal seizures : likely sec to astrocytoma - MRI - left parietal and temporal lesions unchanged from previous MRI - Continue IV Decadron - Keppra 2000 mg PO BID, lamotrigine 125 mg po BID - Ativan as needed - seizure precautions - fall precautions - CXR today due to aspiration episode:. Cardiomegaly with evidence of mild congestive failure.Suspect small pleural effusions. Low lung volumes and bibasilar atelectasis. - aspiration precautions- h/o aspiration, speech recommendation- nectar thick liquids - bevacizumab 15 mg/kg every 3 weeks per oncology, next dose in 3 weeks as an OP appreciate palliative consult input Exposure to influenza: PCR influenza today- negative - prophylaxis with Tamiflu 75 mg PO daily for 10 days Depression: - sertraline 100 mg daily BPH : - tamsulosin 0.4 mg daily DNR Disposition: his primary director critical care, is sick at home. discharge uncertain at this time Resident Physician Supervision Note: I interviewed and examined the patient. Discussed with Dr. Brown. Please see my separate note. Documented By: Ji Cordova Continued [facility] stay due to: home environment unsafe for pt Discharge planning: home
[2016-06-11] MEDS: LORAZEPAM INJ 1 MG in SYRINGE 0.5 ML IV PRN (21:06)
[2016-06-12] MEDS: DEXAMETHASONE INJ 6 MG in SYRINGE 0 ML IV SCH ×4 (01:23→20:43)
[2016-06-12] MEDS: FAMOTIDINE IV INJ 20 MG in DEXTROSE 5% 100ML 100 ML IV SCH ×2 (04:06→16:11)
[2016-06-12 04:58] VITALS: BP 144/87; PULSE 69; O2SAT 93
[2016-06-12] MEDS: OSELTAMIVIR PHOSPHATE 75 MG CAP PO SCH (07:30)
[2016-06-12] MEDS: ASPIRIN 81 MG ECTAB PO SCH (07:30)
[2016-06-12] MEDS: SERTRALINE HCL 100 MG TAB PO SCH (07:31)
[2016-06-12 07:35] VITALS: BP 130/78; PULSE 66; TEMP 37.6; O2SAT 92
[2016-06-12 08:20] VITALS: BP 122/78; PULSE 56; TEMP 37.5; O2SAT 93
[2016-06-12] MEDS: LEVETIRACETAM IV 2,000 MG in DEXTROSE 5% 250ML 250 ML IV SCH ×2 (09:31→21:29)
[2016-06-12] MEDS: LORAZEPAM INJ 1 MG in SYRINGE 0.5 ML IV PRN (09:31)
[2016-06-12 10:06] VITALS: TEMP 36.7
[2016-06-12 10:12] LABS: BASO % 0.2 %; BASO ABS # 0.03 K/uL (0-0.2); COMPLETE YES; HEMATOCRIT 47.4 % (42-52); LYMPH % 7.7 %; LYMPH ABS # 1.35 K/uL (1.2-3.4); MEAN CELL VOLUME 95.8 fL (80-100); MEAN CORPUSCULAR HEMOGLOBIN 32.5 pg (25-34); MEAN PLATELET VOLUME 10.5 fL (7.4-10.4); MONO % 5.2 %; NEUT % 84.9 %; PLATELET COUNT 235 K/uL (130-400); RED BLOOD COUNT 4.95 M/uL (4.7-6.1); WHITE BLOOD COUNT 17.55 K/uL (4.8-10.8)
[2016-06-12 10:47] LABS: BUN/CREATININE RATIO 36.4 (10-20); CALCIUM 8.2 mg/dl (8.5-10.1); CREATININE 0.5 mg/dl (0.60-1.40); POTASSIUM 3.7 mmol/L (3.5-5.1)
[2016-06-12 11:58] VITALS: BP 144/84; PULSE 56; TEMP 37.5; O2SAT 95
--- NOTE | 2016-06-12 13:39 | DIAGNOSTIC IMAGING REPORT ---
SINGLE VIEW CHEST CLINICAL HISTORY: Aspiration. FINDINGS: 2 AP, portable, upright chest radiographs are compared to study dated 06/11/2016. Correlation is made with chest CT dated 04/17/2015. The examination is degraded by large body habitus, motion artifact, and patient rotation. The heart is enlarged and there is atherosclerotic calcification of the thoracic ureter. Mild pulmonary vascular congestion persists. There are low lung volumes with bibasilar atelectasis. Patchy airspace opacities at the right lung base appear new from previous. Small pleural effusions are suspected. There is no pneumothorax. The skeletal structures are osteopenic. Degenerative change is noted throughout the thoracic spine. IMPRESSION: 1. Cardiomegaly with evidence of mild persistent congestive failure. 2. Suspect small pleural effusions. 3. Patchy airspace opacities at the right lung base are new from previous. This could represent atelectasis or possibly an aspiration event as clinically stated. Radiographic follow-up to resolution is recommended. Electronically signed by: Guilherme Montgomery M.D. 06/12/2016 1:38 PM Dictated Date/Time: 06/12/2016 1:36 PM
--- NOTE | 2016-06-12 14:16 | Palliative Care Progress Note ---
Palliative Care Progress Note Date of Service Jun 12, 2016. Subjective Pt evaluation today including: conversation w/ patient, conversation w/ family (, Concepción, over phone), physical exam, chart review, conversation w/ solutions consultant (Dr. Cordova, Dr. Brown) Pain: 0/10 Voiding: no voiding problems -Patient not feeling well today. Shook his head no and stuck his tongue with a disgusted face when I asked how he was feeling. More lethargic, lungs very coarse and moist. -Had an episode yesterday of likely aspiration at lung time. He was seen by speech therapist today and the patient is certainly aspirating and even having difficulty managing his own secretions at this point. CXR today shows new airspace opacity in right base, likely an aspiration event with clinical correlation. Increased WBC today, low grade fever as well. -Speech therapist stated for patient's safety, he should technically be NPO at this point. However, I spoke with the patient's regarding this issue, and the plan remains the same that the patient would never want to have a feeding tube and they would like to continue comfort feeding as tolerated with speech therapist's recommendations, despite the risk. -Patient is very weak and has not been out of bed since admission other than when he fell out of bed. Review of Systems unable to obtain, patient nonverbal and lethargic today. Objective Vital Signs Date Time Temp Pulse Resp B/P Pulse Ox O2 Delivery O2 Flow Rate FiO2 06/12/16 11:58 37.5 56 36 144/84 95 Nasal Cannula 2.0 Humidified Oxygen 06/12/16 10:06 36.7 22 06/12/16 08:20 37.5 56 40 122/78 93 Nasal Cannula 2.0 Humidified Oxygen 06/12/16 08:00 Nasal Cannula 2.0 06/12/16 07:35 37.6 66 26 130/78 92 2.0 06/12/16 04:58 69 24 144/87 93 Nasal Cannula 2.0 06/12/16 01:00 Nasal Cannula 2.0 06/11/16 23:53 36.3 59 153/77 92 Room Air 06/11/16 20:00 36.4 63 20 151/84 94 Nasal Cannula 2.0 06/11/16 16:15 92 Nasal Cannula 2.0 06/11/16 15:57 36.6 65 20 155/89 94 Humidified Air 1.0 Physical Exam General Appearance: no apparent distress (no distress, but appears uncomfortable and respirations somewhat labored) Neck: no JVD Respiratory/Chest: + crackles, + pertinent finding (labored respirations, slightly tachypneic but apparently improved from this morning. Lungs are extremely moist throughout, rattling in throat.) Cardiovascular: regular rate, rhythm, no edema, + normal peripheral pulses Abdomen: normal bowel sounds, non tender, + distended (obese abdomen- patinet' s norm) Extremities: + pertinent finding (generalized weakness) Neurologic/Psychiatric: + aphasia, + pertinent finding (more lethargic today. nonverbal at baseline. can communicate with head nods) Skin: normal color Laboratory Results Last 24 Hours Test 06/12/16 09:48 White Blood Count 17.55 K/uL Red Blood Count 4.95 M/uL Hemoglobin 16.1 g/dL Hematocrit 47.4 % Mean Corpuscular Volume 95.8 fL Mean Corpuscular Hemoglobin 32.5 pg Mean Corpuscular Hemoglobin Concent 34.0 g/dl Platelet Count 235 K/uL Mean Platelet Volume 10.5 fL Neutrophils (%) (Auto) 84.9 % Lymphocytes (%) (Auto) 7.7 % Monocytes (%) (Auto) 5.2 % Eosinophils (%) (Auto) 0.0 % Basophils (%) (Auto) 0.2 % Neutrophils # (Auto) 14.91 K/uL Lymphocytes # (Auto) 1.35 K/uL Monocytes # (Auto) 0.91 K/uL Eosinophils # (Auto) 0.00 K/uL Basophils # (Auto) 0.03 K/uL RDW Standard Deviation 51.2 fL RDW Coefficient of Variation 14.5 % Immature Granulocyte % (Auto) 2.0 % Immature Granulocyte # (Auto) 0.35 K/uL Sodium Level 141 mmol/L Potassium Level 3.7 mmol/L Chloride Level 108 mmol/L Carbon Dioxide Level 24 mmol/L Anion Gap 9.0 mmol/L Blood Urea Nitrogen 18 mg/dl Creatinine 0.50 mg/dl Est Creatinine Clear Calc Drug Dose 158.4 ml/min Estimated GFR () 128.2 Estimated GFR (Non- 110.6 BUN/Creatinine Ratio 36.4 Random Glucose 154 mg/dl Calcium Level 8.2 mg/dl Assessment and Plan Problem list: Aphasia Weakness/ambulatory dysfunction Dyspnea/tachypnea Likely new aspiration pneumonia Dysphagia- honey thickened liquids and now pureed diet Astrocytoma of brain Seizure disorder- ?breakthrough seizure Goals of care (Z51.5) Palliative care plan: Discussed with patient, patient's Concepción Henderson, Dr. Cordova and Dr. Brown. -Patient remains DNR/DNI. -Allow comfort feeding as tolerated per the patient and 's wishes. No feeding tube. Speech therapist will put in recommendations for diet-- honey thick and pureed. -Hospitalist team starting antibiotics for new aspiration pneumonia. -Continue supportive treatment for now. is hoping to get well enough to come in to see patient in the next couple days. She is sick at home with influenza. -With patient's decline, goals of care may need to change at this point. Will need to continue to reassess. Please contact me if there are any palliative needs over the weekend. Palliative Performance Scale: 20 % Continued [facility] stay due to: multiple IV medications needed, home environment unsafe for pt Discharge planning: uncertain
[2016-06-12] MEDS: AMPICILLIN/SULBACTAM SOD INJ 1,500 MG in SODIUM CHLORIDE 0.9% 100ML 100 ML IV SCH ×2 (14:44→20:47)
[2016-06-12] MEDS: SODIUM CHLORIDE 0.45% 1000ML 1,000 ML IV SCH (15:38)
[2016-06-12 15:52] VITALS: BP 178/95; PULSE 61; TEMP 36.7; O2SAT 92
--- NOTE | 2016-06-12 16:24 | Family Medicine Progress Note ---
Progress Note Date of Service Jun 12, 2016. Subjective Pt evaluation today including: physical exam, chart review, lab review PO Intake: NPO Voiding: no voiding problems Had a choking episode yesterday while eating green beens. was agitated and restless this morning with increased breathing and rattling in throat. also developed a low grade temperature today. Additional Comments: unable yo obatin from patent, very agitated over a baseline of aphasia Medications Current Inpatient Medications Medications (Trade) Dose Ordered Sig/Pietro Route Start Time Stop Time Status Last Admin Dose Admin Acetaminophen (Tylenol Tab) 650 mg Q4H PRN PO 06/04/16 00:30 07/04/16 00:29 06/11/16 19:52 650 MG Ondansetron HCl (Zofran Inj) 4 mg Q6H PRN IV 06/04/16 00:30 07/04/16 00:29 Albuterol (Ventolin Hfa Inhaler) 2 puffs QID PRN INH 06/04/16 00:45 07/04/16 00:44 06/09/16 00:01 2 PUFFS Aspirin (Ecotrin Tab) 81 mg DAILY PO 06/04/16 09:00 07/04/16 08:59 06/12/16 07:30 81 MG Sertraline HCl 200 mg 200 mg DAILY PO 06/04/16 09:00 07/04/16 08:59 06/12/16 07:31 200 MG Levetiracetam 2000 mg/Dextrose 270 ml @ 999 mls/hr Q12 IV 06/04/16 21:00 07/04/16 20:59 06/12/16 09:31 999 MLS/HR Famotidine/ Dextrose (Pepcid IV Inj/ D5 100ml) 102 ml @ 200 mls/hr Q12H IV 06/04/16 16:00 07/04/16 15:59 06/12/16 04:06 200 MLS/HR Lorazepam (Ativan Inj) 1 mg Q4H PRN IV 06/04/16 10:15 07/04/16 10:14 06/11/16 13:41 1 MG Lorazepam 0.5 mg 0.5 mg Q4H PRN IV 06/04/16 10:15 07/04/16 10:14 Lorazepam 0.5 mg/ Syringe 1 ml @ 1 mls/min Q4H PRN IV 06/04/16 12:15 07/04/16 12:14 Lorazepam/Syringe (Ativan Inj/ Syringe) 1 ml @ 1 mls/min Q4H PRN IV 06/04/16 12:15 07/04/16 12:14 06/12/16 09:31 1 MLS/MIN Lamotrigine 125 mg 125 mg BID PO 06/05/16 20:00 07/05/16 19:59 06/12/16 07:29 125 MG Dexamethasone Sodium Phosphate/ Syringe (Decadron Inj/ Syringe) 1.5 ml @ 1 mls/min Q6H IV 06/06/16 14:00 07/06/16 13:59 06/12/16 14:00 1 MLS/MIN Oseltamivir Phosphate 75 mg 75 mg DAILY PO 06/11/16 08:00 06/21/16 07:59 06/12/16 07:30 75 MG Ampicillin Sodium/ Sulbactam Sodium 1500 mg/Sodium Chloride 104 ml @ 200 mls/hr Q6H IV 06/12/16 14:00 06/19/16 13:59 06/12/16 14:44 200 MLS/HR Sodium Chloride (1/2 Nss 1000ml) 1,000 ml @ 75 mls/hr [id number] IV 06/12/16 15:15 07/12/16 15:14 06/12/16 15:38 75 MLS/HR Objective Vital Signs Date Time Temp Pulse Resp B/P Pulse Ox O2 Delivery O2 Flow Rate FiO2 06/12/16 15:52 36.7 61 22 92 2.0 06/12/16 11:58 37.5 56 36 144/84 95 Nasal Cannula 2.0 Humidified Oxygen 06/12/16 10:06 36.7 22 06/12/16 08:20 37.5 56 40 122/78 93 Nasal Cannula 2.0 Humidified Oxygen 06/12/16 08:00 Nasal Cannula 2.0 06/12/16 07:35 37.6 66 26 130/78 92 2.0 06/12/16 04:58 69 24 144/87 93 Nasal Cannula 2.0 06/12/16 01:00 Nasal Cannula 2.0 06/11/16 23:53 36.3 59 153/77 92 Room Air 06/11/16 20:00 36.4 63 20 151/84 94 Nasal Cannula 2.0 06/11/16 16:15 92 Nasal Cannula 2.0 Physical Exam General Appearance: WD/WN, + mild distress, + obese Eyes: sclerae normal Neck: supple Respiratory/Chest: + crackles, + pertinent finding (tachypneic episodes , rattling in throat) Cardiovascular: + bradycardia Abdomen: normal bowel sounds, non tender, soft Extremities: no pedal edema Neurologic/Psychiatric: + aphasia (agitated), + pertinent finding Skin: normal color Laboratory Results 06/12/16 09:48 Red Blood Count 4.95, Mean Corpuscular Volume 95.8, Mean Corpuscular Hemoglobin 32.5, Mean Corpuscular Hemoglobin Concent 34.0, Mean Platelet Volume 10.5, Neutrophils (%) (Auto) 84.9, Lymphocytes (%) (Auto) 7.7, Monocytes (%) (Auto) 5.2, Eosinophils (%) (Auto) 0.0, Basophils (%) (Auto) 0.2, Neutrophils # (Auto) 14.91, Lymphocytes # (Auto) 1.35, Monocytes # (Auto) 0.91, Eosinophils # (Auto) 0.00, Basophils # (Auto) 0.03 06/12/16 09:48 Test 06/12/16 09:48 White Blood Count 17.55 K/uL (4.8-10.8) Red Blood Count 4.95 M/uL (4.7-6.1) Hemoglobin 16.1 g/dL (14.0-18.0) Hematocrit 47.4 % (42-52) Mean Corpuscular Volume 95.8 fL (80-100) Mean Corpuscular Hemoglobin 32.5 pg (25-34) Mean Corpuscular Hemoglobin Concent 34.0 g/dl (32-36) Platelet Count 235 K/uL (130-400) Mean Platelet Volume 10.5 fL (7.4-10.4) Neutrophils (%) (Auto) 84.9 % Lymphocytes (%) (Auto) 7.7 % Monocytes (%) (Auto) 5.2 % Eosinophils (%) (Auto) 0.0 % Basophils (%) (Auto) 0.2 % Neutrophils # (Auto) 14.91 K/uL (1.4-6.5) Lymphocytes # (Auto) 1.35 K/uL (1.2-3.4) Monocytes # (Auto) 0.91 K/uL (0.11-0.59) Eosinophils # (Auto) 0.00 K/uL (0-0.5) Basophils # (Auto) 0.03 K/uL (0-0.2) RDW Standard Deviation 51.2 fL (36.4-46.3) RDW Coefficient of Variation 14.5 % (11.5-14.5) Immature Granulocyte % (Auto) 2.0 % Immature Granulocyte # (Auto) 0.35 K/uL (0.00-0.02) Anion Gap 9.0 mmol/L (3-11) Est Creatinine Clear Calc Drug Dose 158.4 ml/min Estimated GFR () 128.2 Estimated GFR (Non- 110.6 BUN/Creatinine Ratio 36.4 (10-20) Calcium Level 8.2 mg/dl (8.5-10.1) Assessment and Plan Documented By: Ji Cordova 70 y/o M with a left sided temporal astrocytoma and chronic seizures admitted after he had a seizure episode while at home after being discharged from . patients wanted to try chemotherapy as she thought it made his "mind clear " and he had tolerated it well, received chemo and had tolerated it well. His who is his primary medicare biller was diagnosed with influenza and he was started on prophylaxis for influenza. had a choking episode during lunch yesterday and seemed to appear more tachypneic today with increased restlessness and also spiked a low grade temperature this morning. Aspiration pneumonia : - leucocytosis - CXR 3/2: IMPRESSION: Cardiomegaly with evidence of mild congestive failure, Suspect small pleural effusions. Low lung volumes and bibasilar atelectasis. - CXR 3/3: Patchy airspace opacities at the right lung base are new from previous. This could represent atelectasis or possibly an aspiration event as clinically stated. Radiographic follow-up to resolution is recommended. - IVF - aspiration precautions - speech therapy consult- pureed and honey thick - started IV Unasyn q6h Focal seizures : likely sec to astrocytoma - MRI - left parietal and temporal lesions unchanged from previous MRI - Continue IV Decadron - Keppra 2000 mg PO BID, lamotrigine 125 mg po BID - Ativan as needed - seizure precautions - fall precautions - bevacizumab 15 mg/kg every 3 weeks per oncology, next dose in 3 weeks as an OP appreciate palliative consult input Exposure to influenza: PCR influenza - negative - prophylaxis with Tamiflu 75 mg PO daily for 10 days Depression: - sertraline 100 mg daily BPH : - tamsulosin 0.4 mg daily DNR Disposition: New aspiration pneumonia, will treat with antibiotics. No feeding tubes per . palliative care PICK UP WORKER spoke with , I spoke to his son about his current condition. Resident Physician Supervision Note: I was present with Dr. Brown during the history and exam. I discussed the case with the resident and agree with the findings and plan as documented in the note. Any exceptions or clarifications are listed here: I also discussed the case with the palliative care nurse practitioner he was able to make contact with the patient's . Unfortunately she remains at home with influenza and is unable to visit her . Her 's condition has worsened over the last 24 hours likely the result of aspiration pneumonia. I was also able to discuss a care plan with the son who is visiting the patient around 3:00 this afternoon. We will treat with antibiotics and intravenous fluids; there have been a prior plan not to use other means of feeding (enteral or PEG) nor would we use pressor agents should they be needed. With his current palliative performance score, he would not be a candidate for additional chemotherapy. Should he recover from the aspiration pneumonia and his recover from influenza, I would recommend home hospice. While it would be appropriate at this point, it would not be logistically possible with the is primary caregiver being sick herself. Could entertain the idea of inpatient hospice services although this would be a difficult decision for the to make without being able to see her . Continued [facility] stay due to: abnormal vital signs Discharge planning: home
[2016-06-13 01:57] VITALS: BP 137/71; PULSE 53; TEMP 36.4; O2SAT 93
[2016-06-13] MEDS: DEXAMETHASONE INJ 6 MG in SYRINGE 0 ML IV SCH ×4 (02:15→20:03)
[2016-06-13] MEDS: AMPICILLIN/SULBACTAM SOD INJ 1,500 MG in SODIUM CHLORIDE 0.9% 100ML 100 ML IV SCH ×4 (02:15→20:03)
[2016-06-13] MEDS: FAMOTIDINE IV INJ 20 MG in DEXTROSE 5% 100ML 100 ML IV SCH ×2 (03:27→16:05)
[2016-06-13] MEDS: SODIUM CHLORIDE 0.45% 1000ML 1,000 ML IV SCH ×2 (04:51→20:02)
[2016-06-13 05:53] LABS: HEMATOCRIT 45.4 % (42-52); MEAN CELL VOLUME 93.8 fL (80-100); MEAN CORPUSCULAR HGB CONC 34.1 g/dl (32-36); MEAN PLATELET VOLUME 10.3 fL (7.4-10.4); PLATELET COUNT 234 K/uL (130-400); RED BLOOD COUNT 4.84 M/uL (4.7-6.1)
[2016-06-13 07:37] VITALS: BP 173/77; PULSE 55; TEMP 36.4; O2SAT 94
[2016-06-13] MEDS: ASPIRIN 81 MG ECTAB PO SCH (08:38)
[2016-06-13] MEDS: OSELTAMIVIR PHOSPHATE 75 MG CAP PO SCH (08:41)
[2016-06-13] MEDS: SERTRALINE HCL 100 MG TAB PO SCH (08:42)
[2016-06-13] MEDS: LEVETIRACETAM IV 2,000 MG in DEXTROSE 5% 250ML 250 ML IV SCH ×2 (09:40→21:38)
[2016-06-13 12:06] VITALS: BP 155/79; PULSE 51; TEMP 36.3; O2SAT 94
--- NOTE | 2016-06-13 14:04 | Progress Note ---
Subjective Date of Service: Jun 13, 2016. Subjective Pt evaluation today including: physical exam, chart review, lab review, review of studies, review of inpatient medication list Pain: I do not sense that he is in pain or distress PO Intake: NPO Voiding: incontinence This morning, the patient is found sleeping in the right lateral recumbent position in his bed at the lowest position; bedside mats noted for continued fall precautions. His breathing is non labored as he sleeps. He awakens to gentle voice; his is non verbal this morning. Problem List Medical Problems: (1) Altered mental status Status: Acute (2) Altered mental status Status: Acute (3) Aphasia Status: Acute (4) Aphasia Status: Acute (5) Astrocytoma Status: Acute (6) Bilateral pulmonary embolism Status: Acute (7) Brain tumor Status: Acute (8) Constipation Status: Acute (9) Difficulty with speech Status: Acute (10) Fever Status: Acute (11) Fever Status: Acute (12) Leg pain, left Status: Acute (13) No history of seizures Status: Chronic (14) Partial seizure Status: Acute (15) Pneumonia Status: Acute (16) Right arm weakness Status: Acute (17) Right arm weakness Status: Acute (18) Seizure Status: Acute (19) SOB (shortness of breath) Status: Acute (20) Vasogenic brain edema Status: Acute (21) Vasogenic brain edema Status: Acute Review of Systems Constitutional: + chills, No fever Eyes: No discharge, No redness ENT: No hearing loss Respiratory: No dyspnea at rest, No wheezing Cardiac: No problem reported Musculoskeletal: No problem reported Male : + incontinence Medications Current Inpatient Medications Medications (Trade) Dose Ordered Sig/Pietro Route Start Time Stop Time Status Last Admin Dose Admin Acetaminophen (Tylenol Tab) 650 mg Q4H PRN PO 06/04/16 00:30 07/04/16 00:29 06/11/16 19:52 650 MG Ondansetron HCl (Zofran Inj) 4 mg Q6H PRN IV 06/04/16 00:30 07/04/16 00:29 Albuterol (Ventolin Hfa Inhaler) 2 puffs QID PRN INH 06/04/16 00:45 07/04/16 00:44 06/09/16 00:01 2 PUFFS Aspirin (Ecotrin Tab) 81 mg DAILY PO 06/04/16 09:00 07/04/16 08:59 06/13/16 08:38 81 MG Sertraline HCl 200 mg 200 mg DAILY PO 06/04/16 09:00 07/04/16 08:59 06/13/16 08:42 200 MG Levetiracetam 2000 mg/Dextrose 270 ml @ 999 mls/hr Q12 IV 06/04/16 21:00 07/04/16 20:59 06/13/16 09:40 999 MLS/HR Famotidine/ Dextrose (Pepcid IV Inj/ D5 100ml) 102 ml @ 200 mls/hr Q12H IV 06/04/16 16:00 07/04/16 15:59 06/13/16 03:27 200 MLS/HR Lorazepam (Ativan Inj) 1 mg Q4H PRN IV 06/04/16 10:15 07/04/16 10:14 06/11/16 13:41 1 MG Lorazepam 0.5 mg 0.5 mg Q4H PRN IV 06/04/16 10:15 07/04/16 10:14 Lorazepam 0.5 mg/ Syringe 1 ml @ 1 mls/min Q4H PRN IV 06/04/16 12:15 07/04/16 12:14 06/12/16 16:40 1 MLS/MIN Lorazepam/Syringe (Ativan Inj/ Syringe) 1 ml @ 1 mls/min Q4H PRN IV 06/04/16 12:15 07/04/16 12:14 06/12/16 09:31 1 MLS/MIN Lamotrigine 125 mg 125 mg BID PO 06/05/16 20:00 07/05/16 19:59 06/13/16 08:41 125 MG Dexamethasone Sodium Phosphate/ Syringe (Decadron Inj/ Syringe) 1.5 ml @ 1 mls/min Q6H IV 06/06/16 14:00 07/06/16 13:59 06/13/16 08:30 1 MLS/MIN Oseltamivir Phosphate 75 mg 75 mg DAILY PO 06/11/16 08:00 06/21/16 07:59 06/13/16 08:41 75 MG Ampicillin Sodium/ Sulbactam Sodium 1500 mg/Sodium Chloride 104 ml @ 200 mls/hr Q6H IV 06/12/16 14:00 06/19/16 13:59 06/13/16 08:34 200 MLS/HR Sodium Chloride (1/2 Nss 1000ml) 1,000 ml @ 75 mls/hr [id number] IV 06/12/16 15:15 07/12/16 15:14 06/13/16 04:51 75 MLS/HR Objective Vital Signs Date Time Temp Pulse Resp B/P Pulse Ox O2 Delivery O2 Flow Rate FiO2 06/13/16 12:06 36.3 51 18 155/79 94 Nasal Cannula 3.0 06/13/16 08:00 Nasal Cannula 3.0 06/13/16 07:37 36.4 55 18 173/77 94 Nasal Cannula 3.0 06/13/16 01:57 36.4 53 28 137/71 93 Nasal Cannula 3.5 06/13/16 01:05 Nasal Cannula 2.0 06/12/16 16:00 Nasal Cannula 2.0 06/12/16 15:52 36.7 61 22 178/95 92 2.0 Physical Exam General Appearance: + cachetic, + pertinent finding (Non verbal) Eyes: normal inspection ENT: hearing grossly normal Neck: supple Respiratory/Chest: + pertinent finding (Coarse breath sounds, although seem transmitted from upper airway. Decreased breath sounds in the bases, especially right.) Cardiovascular: regular rate, rhythm Abdomen: non tender, soft Extremities: no pedal edema Neurologic/Psychiatric: + pertinent finding (Awakens to voice, non verbal this morning ) Laboratory Results Last 24 Hours Test 06/13/16 05:27 White Blood Count 20.60 K/uL Red Blood Count 4.84 M/uL Hemoglobin 15.5 g/dL Hematocrit 45.4 % Mean Corpuscular Volume 93.8 fL Mean Corpuscular Hemoglobin 32.0 pg Mean Corpuscular Hemoglobin Concent 34.1 g/dl RDW Standard Deviation 49.3 fL RDW Coefficient of Variation 14.4 % Platelet Count 234 K/uL Mean Platelet Volume 10.3 fL Assessment and Plan 70-year-old male with left sided temporal astrocytoma admitted with episode of seizures. He was pending discharge but unfortunately his , his primary caregiver, has been diagnosed with influenza type A. Subsequently, he has developed an apparent aspiration pneumonia. Aspiration Pneumonia We will treat with antibiotics and intravenous fluids; prior plan not to use other means of feeding (enteral or PEG) nor would we use pressor agents should they be needed. Recheck x-ray in AM Leukocytosis Unclear if from fever or steroids Astrocytoma/Seizures Continue Keppra 2000 mg, lamotrigine 125 mg po BID With his current palliative performance score, he would not be a candidate for additional chemotherapy. Should he recover from the aspiration pneumonia and his recover from influenza, I would recommend home hospice. While it would be appropriate at this point, it would not be logistically possible with the is primary caregiver being sick herself. Could entertain the idea of inpatient hospice services although this would be a difficult decision for the to make without being able to see her Exposure to influenza The patient's nasal swab was negative for influenza A and B. The patient is on prophylaxis with Tamiflu 75 mg by mouth daily. Dosing will be continued for 10 days. Resident Physician Supervision Note: I separately examined the patient and discussed the case with the resident physician. Please see the resident physicians dictation for additional details. Documented By: Ji Cordova Continued [facility] stay due to: abnormal vital signs Discharge planning: home
[2016-06-13] MEDS: LORAZEPAM 2 MG/ML 1 ML VIAL IV PRN (14:07)
[2016-06-13 17:05] VITALS: BP 149/67; PULSE 52; TEMP 36.3; O2SAT 92
[2016-06-13 20:29] VITALS: BP 161/85; PULSE 58; TEMP 36.1; O2SAT 94
[2016-06-14 00:11] VITALS: BP 178/95; PULSE 56; TEMP 36.3; O2SAT 93
[2016-06-14 00:35] VITALS: BP 125/75; PULSE 54
[2016-06-14] MEDS: LORAZEPAM INJ 1 MG in SYRINGE 0.5 ML IV PRN (01:17)
[2016-06-14] MEDS: DEXAMETHASONE INJ 6 MG in SYRINGE 0 ML IV SCH ×4 (03:00→19:44)
[2016-06-14] MEDS: AMPICILLIN/SULBACTAM SOD INJ 1,500 MG in SODIUM CHLORIDE 0.9% 100ML 100 ML IV SCH ×4 (03:00→19:49)
[2016-06-14] MEDS: FAMOTIDINE IV INJ 20 MG in DEXTROSE 5% 100ML 100 ML IV SCH ×2 (03:30→15:50)
[2016-06-14 05:55] LABS: BASO % 0.2 %; BASO ABS # 0.03 K/uL (0-0.2); COMPLETE YES; HEMATOCRIT 44.8 % (42-52); LYMPH % 4.3 %; LYMPH ABS # 0.84 K/uL (1.2-3.4); MEAN CELL VOLUME 93.5 fL (80-100); MEAN CORPUSCULAR HEMOGLOBIN 32.8 pg (25-34); MEAN PLATELET VOLUME 10.2 fL (7.4-10.4); MONO % 4.7 %; NEUT % 88.8 %; PLATELET COUNT 256 K/uL (130-400); RED BLOOD COUNT 4.79 M/uL (4.7-6.1); WHITE BLOOD COUNT 19.73 K/uL (4.8-10.8)
[2016-06-14 06:26] LABS: BUN/CREATININE RATIO 32.4 (10-20); CALCIUM 8.7 mg/dl (8.5-10.1); CREATININE 0.41 mg/dl (0.60-1.40); POTASSIUM 3.8 mmol/L (3.5-5.1)
[2016-06-14 07:30] VITALS: BP 149/73; PULSE 47; TEMP 36.7; O2SAT 92
[2016-06-14] MEDS: ASPIRIN 81 MG ECTAB PO SCH (07:45)
[2016-06-14] MEDS: SERTRALINE HCL 100 MG TAB PO SCH (07:46)
[2016-06-14] MEDS: OSELTAMIVIR PHOSPHATE 75 MG CAP PO SCH (07:47)
[2016-06-14] MEDS: LORAZEPAM 2 MG/ML 1 ML VIAL IV PRN ×3 (07:57→19:43)
[2016-06-14] MEDS: SODIUM CHLORIDE 0.45% 1000ML 1,000 ML IV SCH ×2 (08:04→19:44)
--- NOTE | 2016-06-14 09:29 | DIAGNOSTIC IMAGING REPORT ---
CHEST ONE VIEW PORTABLE CLINICAL HISTORY: pneumonia dyspnea COMPARISON STUDY: 06/12/2016 FINDINGS: Stable cardiomegaly. Moderate prominence pulmonary vasculature. Bibasilar atelectasis. Diaphragms smooth. IMPRESSION: Cardiomegaly. Mild bibasilar atelectasis. Pulmonary vascular congestion. Electronically signed by: Gabino Palafox M.D. 06/14/2016 9:27 AM Dictated Date/Time: 06/14/2016 9:27 AM
[2016-06-14] MEDS: LEVETIRACETAM IV 2,000 MG in DEXTROSE 5% 250ML 250 ML IV SCH ×2 (10:07→19:44)
[2016-06-14 12:00] VITALS: BP 136/78; PULSE 43; TEMP 36.5; O2SAT 91
[2016-06-14] MEDS: MoRPHine SULFATE 2 MG/ML CARP IV PRN ×2 (15:47→19:43)
--- NOTE | 2016-06-14 15:56 | Family Medicine Progress Note ---
Progress Note Date of Service Jun 14, 2016. 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 Patient currently has coarse breath sounds bilaterally after aspirating earlier in the weak but is still being fed with comfort feeding. Patient at this point will be hospice care but was unable to go home because his recently had the flu. She is at bedside now and wants to do home hospice and has had a discussion already with Katie Hector and Dr. Cordova about hospice at home. Patient has expressive aphasia so is unable to respond to questions. Constitutional: + see HPI Medications Current Inpatient Medications Medications (Trade) Dose Ordered Sig/Pietro Route Start Time Stop Time Status Last Admin Dose Admin Acetaminophen (Tylenol Tab) 650 mg Q4H PRN PO 06/04/16 00:30 07/04/16 00:29 06/11/16 19:52 650 MG Ondansetron HCl (Zofran Inj) 4 mg Q6H PRN IV 06/04/16 00:30 07/04/16 00:29 Albuterol (Ventolin Hfa Inhaler) 2 puffs QID PRN INH 06/04/16 00:45 07/04/16 00:44 06/09/16 00:01 2 PUFFS Aspirin (Ecotrin Tab) 81 mg DAILY PO 06/04/16 09:00 07/04/16 08:59 06/14/16 07:45 81 MG Sertraline HCl 200 mg 200 mg DAILY PO 06/04/16 09:00 07/04/16 08:59 06/14/16 07:46 200 MG Levetiracetam 2000 mg/Dextrose 270 ml @ 999 mls/hr Q12 IV 06/04/16 21:00 07/04/16 20:59 06/14/16 10:07 999 MLS/HR Famotidine/ Dextrose (Pepcid IV Inj/ D5 100ml) 102 ml @ 200 mls/hr Q12H IV 06/04/16 16:00 07/04/16 15:59 06/14/16 03:30 200 MLS/HR Lorazepam (Ativan Inj) 1 mg Q4H PRN IV 06/04/16 10:15 07/04/16 10:14 06/14/16 13:52 1 MG Lorazepam 0.5 mg 0.5 mg Q4H PRN IV 06/04/16 10:15 07/04/16 10:14 06/14/16 07:57 0.5 MG Lorazepam 0.5 mg/ Syringe 1 ml @ 1 mls/min Q4H PRN IV 06/04/16 12:15 07/04/16 12:14 06/12/16 16:40 1 MLS/MIN Lorazepam/Syringe (Ativan Inj/ Syringe) 1 ml @ 1 mls/min Q4H PRN IV 06/04/16 12:15 07/04/16 12:14 06/14/16 01:17 1 MLS/MIN Lamotrigine 125 mg 125 mg BID PO 06/05/16 20:00 07/05/16 19:59 06/14/16 07:45 125 MG Dexamethasone Sodium Phosphate/ Syringe (Decadron Inj/ Syringe) 1.5 ml @ 1 mls/min Q6H IV 06/06/16 14:00 07/06/16 13:59 06/14/16 13:37 1 MLS/MIN Oseltamivir Phosphate 75 mg 75 mg DAILY PO 06/11/16 08:00 06/21/16 07:59 06/14/16 07:47 75 MG Ampicillin Sodium/ Sulbactam Sodium 1500 mg/Sodium Chloride 104 ml @ 200 mls/hr Q6H IV 06/12/16 14:00 06/19/16 13:59 06/14/16 13:41 200 MLS/HR Sodium Chloride (1/2 Nss 1000ml) 1,000 ml @ 75 mls/hr [id number] IV 06/12/16 15:15 07/12/16 15:14 06/14/16 08:04 75 MLS/HR Objective Vital Signs Date Time Temp Pulse Resp B/P Pulse Ox O2 Delivery O2 Flow Rate FiO2 06/14/16 12:00 36.5 43 24 136/78 91 Room Air 06/14/16 08:00 Nasal Cannula 3.0 06/14/16 07:30 36.7 47 24 149/73 92 Nasal Cannula 3.0 06/14/16 00:35 54 125/75 06/14/16 00:11 36.3 56 24 178/95 93 Nasal Cannula 2.0 06/14/16 00:00 Nasal Cannula 3.0 06/13/16 20:29 36.1 58 22 161/85 94 Nasal Cannula 2.0 06/13/16 17:05 36.3 52 24 149/67 92 Nasal Cannula 3.0 06/13/16 16:00 Nasal Cannula 3.0 Physical Exam General Appearance: WD/WN, no apparent distress Respiratory/Chest: chest non-tender, + pertinent finding (Coarse breath sounds bilaterally) Cardiovascular: regular rate, rhythm, no edema, no gallop Abdomen: normal bowel sounds, non tender, soft Neurologic/Psychiatric: alert, + disoriented Laboratory Results Results Past 24 Hours Test 06/14/16 05:35 Range/Units White Blood Count 19.73 4.8-10.8 K/uL Red Blood Count 4.79 4.7-6.1 M/uL Hemoglobin 15.7 14.0-18.0 g/dL Hematocrit 44.8 42-52 % Mean Corpuscular Volume 93.5 80-100 fL Mean Corpuscular Hemoglobin 32.8 25-34 pg Mean Corpuscular Hemoglobin Concent 35.0 32-36 g/dl Platelet Count 256 130-400 K/uL Mean Platelet Volume 10.2 7.4-10.4 fL Neutrophils (%) (Auto) 88.8 % Lymphocytes (%) (Auto) 4.3 % Monocytes (%) (Auto) 4.7 % Eosinophils (%) (Auto) 0.0 % Basophils (%) (Auto) 0.2 % Neutrophils # (Auto) 17.53 1.4-6.5 K/uL Lymphocytes # (Auto) 0.84 1.2-3.4 K/uL Monocytes # (Auto) 0.93 0.11-0.59 K/uL Eosinophils # (Auto) 0.00 0-0.5 K/uL Basophils # (Auto) 0.03 0-0.2 K/uL RDW Standard Deviation 48.9 36.4-46.3 fL RDW Coefficient of Variation 14.2 11.5-14.5 % Immature Granulocyte % (Auto) 2.0 % Immature Granulocyte # (Auto) 0.40 0.00-0.02 K/uL Sodium Level 141 136-145 mmol/L Potassium Level 3.8 3.5-5.1 mmol/L Chloride Level 105 98-107 mmol/L Carbon Dioxide Level 29 21-32 mmol/L Anion Gap 7.0 3-11 mmol/L Blood Urea Nitrogen 13 7-18 mg/dl Creatinine 0.41 0.60-1.40 mg/dl Est Creatinine Clear Calc Drug Dose 191.9 ml/min Estimated GFR () 139.0 Estimated GFR (Non- 120.0 BUN/Creatinine Ratio 32.4 10-20 Random Glucose 107 70-99 mg/dl Calcium Level 8.7 8.5-10.1 mg/dl Assessment and Plan Patient is a 70 year old male that presents to [facility] with 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 Mild bibasilar atelectasis. Pulmonary vascular congestion. After comparing images from 08/12 and 08/14 there appears to be similar patchy infiltrates in both films. - IV NS 75/hr - Comfort feedings, so will most likely continue to aspirate 3) Leukocytosis - Multifactorial - 2/2 Chemo, Aspiration, Steroids 4) Influenza Virus - Tamiflu 75mg daily as ppx because had it previously - Treat for 10 days - Influenza testing negative 5) Pain - Morphine 2mg IV PRN 6) Incontinence - Nurse inserted Rowan catheter this afternoon at 3pm 7) GERD - Famotidine 8) Home Meds - Zoloft 200mg PO Daily - Aspirin 81mg PO Daily 9) Anxiety - Ativan q4h PRN 10) Nausea - Zofran 4mg q6h PRN 11) DVT - SCD 12) Code Status - DNR 13) Disposition - Home Hospice - Resume family discussion with Katie Hector and Palliative Care tomorrow Resident Physician Supervision Note: I was present with Dr. Louis during the history and exam. I discussed the case with the resident and agree with the findings and plan as documented in the note. Any exceptions or clarifications are listed here: Astrocytoma/Seizures Continue Keppra 2000 mg, lamotrigine 125 mg po BID Taper dexamethasone from q6 to q8. With his current palliative performance score, he would not be a candidate for additional chemotherapy. The , recovering from influenza, was able to come back to the hospital today. She recognizes her 's decline and realizes that he is not a candidate for additional chemotherapy given his current state. She is accepting of inpatient hospice although probably herself needs a day or two to prepare. Aspiration Pneumonia We will treat with antibiotics and intravenous fluids; prior plan not to use other means of feeding (enteral or PEG) nor would we use pressor agents should they be needed. Leukocytosis Unclear if from infection or steroids, likely a combination of both Exposure to influenza The patient's nasal swab was negative for influenza A and B. The patient is on prophylaxis with Tamiflu 75 mg by mouth daily. Dosing will be continued for 10 days.
[2016-06-14 17:34] VITALS: BP 154/88; PULSE 44; TEMP 36.8; O2SAT 91
[2016-06-15] VITALS (8 sets, daily range): BP systolic 141–167; BP diastolic 63–88; PULSE 41–84; TEMP 35.8–36.5; O2SAT 90–96
[2016-06-15] MEDS: AMPICILLIN/SULBACTAM SOD INJ 1,500 MG in SODIUM CHLORIDE 0.9% 100ML 100 ML IV SCH ×4 (01:42→20:16)
[2016-06-15] MEDS: DEXAMETHASONE INJ 6 MG in SYRINGE 0 ML IV SCH ×4 (01:43→20:13)
[2016-06-15] MEDS: FAMOTIDINE IV INJ 20 MG in DEXTROSE 5% 100ML 100 ML IV SCH ×2 (03:28→15:49)
[2016-06-15] MEDS: LORAZEPAM 2 MG/ML 1 ML VIAL IV PRN (04:48)
[2016-06-15] MEDS: MoRPHine SULFATE 2 MG/ML CARP IV PRN ×2 (04:48→19:25)
[2016-06-15] MEDS: ASPIRIN 81 MG ECTAB PO SCH (09:14)
[2016-06-15] MEDS: SERTRALINE HCL 100 MG TAB PO SCH (09:14)
[2016-06-15] MEDS: OSELTAMIVIR PHOSPHATE 75 MG CAP PO SCH (09:14)
[2016-06-15] MEDS: LEVETIRACETAM IV 2,000 MG in DEXTROSE 5% 250ML 250 ML IV SCH ×2 (09:49→21:20)
--- NOTE | 2016-06-15 11:44 | Family Medicine Progress Note ---
Progress Note Date of Service Jun 15, 2016. Subjective Pt evaluation today including: conversation w/ patient, physical exam, chart review, lab review, review of studies, conversation w/ automotive service consultant Voiding: rowan catheter in place Patient is unable to respond verbally this morning, agitated in bed. unable to complete an ROS Had a discussion with the son this morning about hospice and ongoing care. Son states that usually his mother is rather passive and "does not ask questions, so I am here to ask questions." He mainly had questions regarding if hospice is appropriate and has everything that can be done has it been done. He also had questions about sending information to the patient's oncologist in [place] so he can give a second opinion. Katie Hector was also there for the discussion. Discussed how patient's status now may not be because of the tumor per say but multifactorial. Also discussed how hospice can be revoked if patient improves. Decided that information will be sent to the onc in [place] and Dr Mackey will talk to the patient here as well. Son reflected understanding and was aware that were were available to continue discussion throughout the day. Medications Medications Administered Medications (Trade) Dose Ordered Sig/Pietro Route Start Time Stop Time Status Last Admin Dose Admin Acetaminophen 975 mg 975 mg NOW STAT MO 06/03/16 21:55 06/03/16 21:56 DC 06/03/16 21:55 975 MG Potassium Chloride/Sodium Chloride (Nss + 20meq KCl 1000ml) 1,000 ml @ 100 mls/hr Q10H IV 06/04/16 01:30 06/04/16 15:42 DC 06/04/16 13:28 100 MLS/HR Acetaminophen (Tylenol Tab) 650 mg Q4H PRN PO 06/04/16 00:30 07/04/16 00:29 06/11/16 19:52 650 MG Albuterol (Ventolin Hfa Inhaler) 2 puffs QID PRN INH 06/04/16 00:45 07/04/16 00:44 06/09/16 00:01 2 PUFFS Aspirin (Ecotrin Tab) 81 mg DAILY PO 06/04/16 09:00 07/04/16 08:59 06/15/16 09:14 81 MG Dexamethasone (Decadron Tab) 4 mg QID PO 06/04/16 09:00 06/04/16 10:14 DC 06/04/16 07:46 4 MG Famotidine (Pepcid Tab) 20 mg BID PO 06/04/16 09:00 06/04/16 10:14 DC 06/04/16 07:49 20 MG Lamotrigine (Lamictal Tab) 100 mg BID PO 06/04/16 09:00 06/04/16 10:14 DC 06/04/16 07:46 100 MG Levetiracetam (Keppra Tab) 2,000 mg Q12 PO 06/04/16 09:00 06/04/16 10:14 DC 06/04/16 07:48 2,000 MG Lorazepam (Ativan Tab) 0.75 mg TID PO 06/04/16 09:00 06/04/16 10:14 DC 06/04/16 07:53 0.75 MG Multivitamins (Multivitamin Tab) 1 tab DAILY PO 06/04/16 09:00 06/04/16 10:14 DC 06/04/16 07:49 1 TAB Rosuvastatin Calcium (Crestor Tab) 5 mg DAILY PO 06/04/16 09:00 06/04/16 10:14 DC 06/04/16 07:45 5 MG Sertraline HCl 200 mg 200 mg DAILY PO 06/04/16 09:00 07/04/16 08:59 06/15/16 09:14 200 MG Levetiracetam/ Dextrose (Keppra Iv/D5 250ml) 270 ml @ 999 mls/hr Q12 IV 06/04/16 21:00 07/04/16 20:59 06/15/16 09:49 999 MLS/HR Lamotrigine 100 mg 100 mg BID PO 06/04/16 20:00 06/05/16 09:31 DC 06/05/16 09:17 100 MG Dexamethasone Sodium Phosphate 4 mg/Syringe 1 ml @ 1 mls/min Q6H IV 06/04/16 14:00 06/06/16 08:37 DC 06/06/16 08:15 1 MLS/MIN Famotidine/ Dextrose (Pepcid IV Inj/ D5 100ml) 102 ml @ 200 mls/hr Q12H IV 06/04/16 16:00 07/04/16 15:59 06/15/16 03:28 200 MLS/HR Lorazepam (Ativan Inj) 1 mg Q4H PRN IV 06/04/16 10:15 07/04/16 10:14 06/15/16 04:48 1 MG Lorazepam 0.5 mg 0.5 mg Q4H PRN IV 06/04/16 10:15 07/04/16 10:14 06/14/16 07:57 0.5 MG Lorazepam 0.5 mg/ Syringe 1 ml @ 1 mls/min Q4H PRN IV 06/04/16 12:15 07/04/16 12:14 06/12/16 16:40 1 MLS/MIN Lorazepam/Syringe (Ativan Inj/ Syringe) 1 ml @ 1 mls/min Q4H PRN IV 06/04/16 12:15 07/04/16 12:14 06/14/16 01:17 1 MLS/MIN Lamotrigine 125 mg 125 mg BID PO 06/05/16 20:00 07/05/16 19:59 06/15/16 09:14 125 MG Dexamethasone Sodium Phosphate 6 mg/Syringe 1.5 ml @ 1 mls/min Q6H IV 06/06/16 14:00 07/06/16 13:59 06/15/16 09:13 1 MLS/MIN Bevacizumab/ Bevacizumab/ Sodium Chloride (Avastin/Avastin/ Nss 100ml) 157.6 ml @ 315.2 mls/ hr DAILY IV 06/09/16 11:30 06/09/16 16:02 DC 06/09/16 12:00 315.2 MLS/HR Oseltamivir Phosphate 75 mg 75 mg DAILY PO 06/11/16 08:00 06/21/16 07:59 06/15/16 09:14 75 MG Ampicillin Sodium/ Sulbactam Sodium 1500 mg/Sodium Chloride 104 ml @ 200 mls/hr Q6H IV 06/12/16 14:00 06/19/16 13:59 06/15/16 09:16 200 MLS/HR Sodium Chloride (1/2 Nss 1000ml) 1,000 ml @ 75 mls/hr [id number] IV 06/12/16 15:15 07/12/16 15:14 06/14/16 19:44 75 MLS/HR Morphine Sulfate (MoRPHine SULFATE INJ) 2 mg Q4 PRN IV 06/14/16 16:00 06/28/16 15:59 06/15/16 04:48 2 MG Objective Vital Signs Date Time Temp Pulse Resp B/P Pulse Ox O2 Delivery O2 Flow Rate FiO2 06/15/16 11:05 36.5 52 18 160/70 90 Humidified Oxygen 1.5 06/15/16 09:12 41 167/88 06/15/16 08:45 35.8 84 17 95 Nasal Cannula 2.0 06/15/16 05:06 36.1 42 16 145/72 92 2.0 06/15/16 00:25 36.4 74 18 158/76 96 Room Air 06/15/16 00:00 Room Air 06/14/16 20:00 Room Air 06/14/16 17:34 36.8 44 24 154/88 91 Room Air 06/14/16 16:00 Room Air 06/14/16 12:00 36.5 43 24 136/78 91 Room Air Physical Exam General Appearance: + mild distress Eyes: normal inspection ENT: normal ENT inspection Neck: supple Respiratory/Chest: no respiratory distress, + pertinent finding (coarse breath sounds throughout) Cardiovascular: regular rate, rhythm, no murmur Abdomen: normal bowel sounds, non tender, soft Extremities: non-tender, no pedal edema, no calf tenderness Neurologic/Psychiatric: + pertinent finding (awake but agitated, not responding appropriately to verbal stimuli/ instructions/ questions) Skin: normal color, warm/dry, no rash Lymphatic: no adenopathy Assessment and Plan This is a 70 yo m with a h/o astrocytoma, aspiration pneumonia and worsening functional status. Consideration for hospice, final decision pending. 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 - Keppra 2g q12 IV - Lamictal 125mg BID - Dexamethasone 6mg q6h IV Delirium - Received morphine and lorazepam last night. Follow. Astrocytoma - palliative consult and oncology consult- appreciate input - final decision for palliative care pending - hospital records to be sent to oncologist in [place] - Agitation increasing - Home dose of ativan 0.5 mg bid - Ativan q 4h - morphine 2 mg IV PRN - Swallow study, appreciate input Aspiration Pneumonia - Unasyn 1500mg q6h IV - IV NS 75/hr - Comfort feedings, so will most likely continue to aspirate Leukocytosis- multifactorial - Chemo, Aspiration, Steroids - continue to follow CBC Exposure to influenza - Tamiflu 75mg dailyx 10 days - Influenza testing negative (PCR) GERD - Famotidine DVT - SCD Code Status - DNR Continued [facility] stay due to: other Discharge planning: uncertain Reviewed: Pt Seen/Exam by Me History restless in bed. opening eyes but not following commands Constitutional: denies: fever General Appearance: other (restless in bed) Respiratory: lungs clear, no respiratory distress Cardiovascular: regular rate, rhythm Neurologic/Psychiatric: alert (but confused) Skin Characteristics: warm/dry Assessment/Plan I have reviewed the medical record and performed a history and physical examination of this patient today. I have discussed the case with Dr. Silver. The above note reflects my findings, conclusions, and recommendations.
--- NOTE | 2016-06-15 12:11 | Hematology/Oncology Prog Note ---
Hematology/Onc Progress Note Date of Service Jun 15, 2016. Diagnoses Progressive anaplastic astrocytoma Medications Medications Administered Medications (Trade) Dose Ordered Sig/Pietro Route Start Time Stop Time Status Last Admin Dose Admin Acetaminophen 975 mg 975 mg NOW STAT MI 06/03/16 21:55 06/03/16 21:56 DC 06/03/16 21:55 975 MG Potassium Chloride/Sodium Chloride (Nss + 20meq KCl 1000ml) 1,000 ml @ 100 mls/hr Q10H IV 06/04/16 01:30 06/04/16 15:42 DC 06/04/16 13:28 100 MLS/HR Acetaminophen (Tylenol Tab) 650 mg Q4H PRN PO 06/04/16 00:30 07/04/16 00:29 06/11/16 19:52 650 MG Albuterol (Ventolin Hfa Inhaler) 2 puffs QID PRN INH 06/04/16 00:45 07/04/16 00:44 06/09/16 00:01 2 PUFFS Aspirin (Ecotrin Tab) 81 mg DAILY PO 06/04/16 09:00 07/04/16 08:59 06/15/16 09:14 81 MG Dexamethasone (Decadron Tab) 4 mg QID PO 06/04/16 09:00 06/04/16 10:14 DC 06/04/16 07:46 4 MG Famotidine (Pepcid Tab) 20 mg BID PO 06/04/16 09:00 06/04/16 10:14 DC 06/04/16 07:49 20 MG Lamotrigine (Lamictal Tab) 100 mg BID PO 06/04/16 09:00 06/04/16 10:14 DC 06/04/16 07:46 100 MG Levetiracetam (Keppra Tab) 2,000 mg Q12 PO 06/04/16 09:00 06/04/16 10:14 DC 06/04/16 07:48 2,000 MG Lorazepam (Ativan Tab) 0.75 mg TID PO 06/04/16 09:00 06/04/16 10:14 DC 06/04/16 07:53 0.75 MG Multivitamins (Multivitamin Tab) 1 tab DAILY PO 06/04/16 09:00 06/04/16 10:14 DC 06/04/16 07:49 1 TAB Rosuvastatin Calcium (Crestor Tab) 5 mg DAILY PO 06/04/16 09:00 06/04/16 10:14 DC 06/04/16 07:45 5 MG Sertraline HCl 200 mg 200 mg DAILY PO 06/04/16 09:00 07/04/16 08:59 06/15/16 09:14 200 MG Levetiracetam/ Dextrose (Keppra Iv/D5 250ml) 270 ml @ 999 mls/hr Q12 IV 06/04/16 21:00 07/04/16 20:59 06/15/16 09:49 999 MLS/HR Lamotrigine 100 mg 100 mg BID PO 06/04/16 20:00 06/05/16 09:31 DC 06/05/16 09:17 100 MG Dexamethasone Sodium Phosphate 4 mg/Syringe 1 ml @ 1 mls/min Q6H IV 06/04/16 14:00 06/06/16 08:37 DC 06/06/16 08:15 1 MLS/MIN Famotidine/ Dextrose (Pepcid IV Inj/ D5 100ml) 102 ml @ 200 mls/hr Q12H IV 06/04/16 16:00 07/04/16 15:59 06/15/16 03:28 200 MLS/HR Lorazepam (Ativan Inj) 1 mg Q4H PRN IV 06/04/16 10:15 07/04/16 10:14 06/15/16 04:48 1 MG Lorazepam 0.5 mg 0.5 mg Q4H PRN IV 06/04/16 10:15 07/04/16 10:14 06/14/16 07:57 0.5 MG Lorazepam 0.5 mg/ Syringe 1 ml @ 1 mls/min Q4H PRN IV 06/04/16 12:15 07/04/16 12:14 06/12/16 16:40 1 MLS/MIN Lorazepam/Syringe (Ativan Inj/ Syringe) 1 ml @ 1 mls/min Q4H PRN IV 06/04/16 12:15 07/04/16 12:14 06/14/16 01:17 1 MLS/MIN Lamotrigine 125 mg 125 mg BID PO 06/05/16 20:00 07/05/16 19:59 06/15/16 09:14 125 MG Dexamethasone Sodium Phosphate 6 mg/Syringe 1.5 ml @ 1 mls/min Q6H IV 06/06/16 14:00 07/06/16 13:59 06/15/16 09:13 1 MLS/MIN Bevacizumab/ Bevacizumab/ Sodium Chloride (Avastin/Avastin/ Nss 100ml) 157.6 ml @ 315.2 mls/ hr DAILY IV 06/09/16 11:30 06/09/16 16:02 DC 06/09/16 12:00 315.2 MLS/HR Oseltamivir Phosphate 75 mg 75 mg DAILY PO 06/11/16 08:00 06/21/16 07:59 06/15/16 09:14 75 MG Ampicillin Sodium/ Sulbactam Sodium 1500 mg/Sodium Chloride 104 ml @ 200 mls/hr Q6H IV 06/12/16 14:00 06/19/16 13:59 06/15/16 09:16 200 MLS/HR Sodium Chloride (1/2 Nss 1000ml) 1,000 ml @ 75 mls/hr [id number] IV 06/12/16 15:15 07/12/16 15:14 06/14/16 19:44 75 MLS/HR Morphine Sulfate (MoRPHine SULFATE INJ) 2 mg Q4 PRN IV 06/14/16 16:00 06/28/16 15:59 06/15/16 04:48 2 MG Subjective He has declined some. I understand potential aspiration pneumonia is being treated. His son wanted to meet and discuss his overall prognosis today. Review of Systems: Unable to obtain a review of systems Vital Signs Vital Signs Past 12 Hours Date Time Temp Pulse Resp B/P Pulse Ox O2 Delivery O2 Flow Rate FiO2 06/15/16 11:05 36.5 52 18 160/70 90 Humidified Oxygen 1.5 06/15/16 09:12 41 167/88 06/15/16 08:45 35.8 84 17 95 Nasal Cannula 2.0 06/15/16 05:06 36.1 42 16 145/72 92 2.0 06/15/16 00:25 36.4 74 18 158/76 96 Room Air Physical Exam Constitutional: vitals are stable. Does open his eyes to verbal stimulation and moves his particularly left side fairly well. Eyes: Eyes are MANAV EOMI without conjuctival erythema or icterus. ENT: External examination was negative for masses. Neck: Negative for masses or palpable thyromegaly Respiratory: Lung sounds were generally clear bilaterally Cardiovascular: Heart was RRR without significant murmur, gallops aoe rubs Gastrointestinal: No palpable hepatic or splenomegaly. The abdomen was soft with normal bowel sounds. Lymphatic system: there was no palpable peripheral lymphadenopathy Musculoskeletal System: The musculoskeletal system seemed concordant with age. Skin: The skin was negative for jaundice. Neurologic exam: Remains a phase and comes before Psychiatric exam: Was essentially negative with normal mood and effect. Assessment & Plan Anaplastic astrocytoma progressive. He did receive a dose of Avastin last week and that was his second dose. There has been no improvement and in fact it appears that there is been some decline. His son wanted to know overall prognosis. We had a kiya conversation and I stated that it was not good. He has to longus father might live and I can only estimate that perhaps at some month or 2. He understood that I could not be more sure. I reviewed with him that there is a track record for single agent Avastin in this kind of situation but I must admit that at this juncture I doubt that'll be very helpful for his father. The son understood. I suggested that it was most likely time for hospice however if his father condition improves his father can be removed from hospice. He was aware of this. He wanted time to review this with his mother however before making that consultation.
--- NOTE | 2016-06-15 12:28 | Palliative Care Progress Note ---
Palliative Care Progress Note Date of Service Jun 15, 2016. Subjective Pt evaluation today including: conversation w/ patient, conversation w/ family , physical exam, chart review, conversation w/ [employer] security consultant (Dr. Silver) Pain: Shakes head "no" PO Intake: none at this time due to altered mental status; comfort feeds are offered Voiding: rowan catheter in place -Patient's mental status has continued to deteriorate over the weekend. He seems to be disoriented, was not as responsive to my questions today as he normally is. - decided on home with hospice once medically cleared, patient's son is unsure. -I received a call from patient's RN that the son is requesting to speak with myself and Dr. Silver. We met with him in room 419. Son was wondering if this confusion and altered mental status was due to the brain lesions or if it was from the aspiration pneumonia, wants to speak with the patient's oncologist in [place] and with Dr. Ruiz regarding if there are any further treatment options at this point and to get their opinion, and had some further questions about hospice which I did answer. He stated that he just is not ready to place his father on hospice quite yet. Review of Systems unable to obtain Objective Vital Signs Date Time Temp Pulse Resp B/P Pulse Ox O2 Delivery O2 Flow Rate FiO2 06/15/16 11:05 36.5 52 18 160/70 90 Humidified Oxygen 1.5 06/15/16 09:12 41 167/88 06/15/16 08:45 35.8 84 17 95 Nasal Cannula 2.0 06/15/16 05:06 36.1 42 16 145/72 92 2.0 06/15/16 00:25 36.4 74 18 158/76 96 Room Air 06/15/16 00:00 Room Air 06/14/16 20:00 Room Air 06/14/16 17:34 36.8 44 24 154/88 91 Room Air 06/14/16 16:00 Room Air 06/14/16 12:00 36.5 43 24 136/78 91 Room Air Physical Exam General Appearance: no apparent distress, + obese, + pertinent finding (is very restless and disoriented) Neck: no JVD Respiratory/Chest: no respiratory distress, no accessory muscle use, + pertinent finding (right lung is coarse anteriorly and posteriorly; moist cough noted) Cardiovascular: regular rate, rhythm, no edema, + normal peripheral pulses Abdomen: normal bowel sounds, + distended (obese abdomen) Neurologic/Psychiatric: + disoriented, + pertinent finding (drowsy, altered mental status) Assessment and Plan Problem list: Aphasia Weakness/ambulatory dysfunction Dyspnea/tachypnea Likely aspiration pneumonia Dysphagia- honey thickened liquids and now pureed diet Astrocytoma of brain Seizure disorder- ?breakthrough seizure Goals of care (Z51.5) Palliative care plan: Discussed with patient's son and Dr. Silver. -Patient remains DNR/DNI. -Allow comfort feeding as tolerated per the patient and 's wishes. No feeding tube. Speech therapist will put in recommendations for diet-- honey thick and pureed. -Continue with current treatment for influenza prophylaxis and aspiration pneumonia with IV abx. -Family still to make final decision on whether or not this patient will be discharged on hospice. Dr. Silver is going to speak with the oncologists to touch base. Will continue to discuss goals of care. Palliative Performance Scale: 20 % Continued [facility] stay due to: abnormal vital signs Discharge planning: home
[2016-06-15] MEDS: SODIUM CHLORIDE 0.45% 1000ML 1,000 ML IV SCH ×2 (12:44→23:26)
[2016-06-16] MEDS: AMPICILLIN/SULBACTAM SOD INJ 1,500 MG in SODIUM CHLORIDE 0.9% 100ML 100 ML IV SCH ×4 (01:24→20:14)
[2016-06-16] MEDS: DEXAMETHASONE INJ 6 MG in SYRINGE 0 ML IV SCH ×4 (01:24→20:14)
[2016-06-16 04:10] VITALS: BP 174/67; PULSE 51; O2SAT 90
[2016-06-16] MEDS: LORAZEPAM 2 MG/ML 1 ML VIAL IV PRN (04:22)
[2016-06-16] MEDS: FAMOTIDINE IV INJ 20 MG in DEXTROSE 5% 100ML 100 ML IV SCH ×2 (04:22→16:08)
[2016-06-16] MEDS: MoRPHine SULFATE 2 MG/ML CARP IV PRN (04:31)
[2016-06-16 07:25] VITALS: BP 167/92; PULSE 57; TEMP 36.8; O2SAT 92
[2016-06-16] MEDS: ASPIRIN 81 MG CHEW PO SCH (07:56)
[2016-06-16] MEDS: SERTRALINE HCL 100 MG TAB PO SCH (07:57)
[2016-06-16] MEDS: OSELTAMIVIR PHOSPHATE 75 MG CAP PO SCH (07:57)
[2016-06-16] MEDS: LORAZEPAM 0.5 MG TAB PO PRN ×2 (07:59→17:46)
[2016-06-16] MEDS: LEVETIRACETAM IV 2,000 MG in DEXTROSE 5% 250ML 250 ML IV SCH ×2 (08:57→21:24)
--- NOTE | 2016-06-16 11:04 | Palliative Care Progress Note ---
Palliative Care Progress Note Date of Service Jun 16, 2016. Subjective Pt evaluation today including: conversation w/ family (patient's son), physical exam, chart review, conversation w/ quality consultant (Dr. Silver), review of inpatient medication list Pain: Family requested to allow patient to continue sleeping PO Intake: comfort feeding allowed Voiding: incontinence (patient pulled his Francisco catheter out last shift) -Patient continues to be disoriented, restless, and seemingly delirious. However , he also remains nonverbal. Sometimes he will open eyes, sometimes will use head motions for yes and no, but is inconsistent. -Pulled Francisco catheter out last night. Balloon was still intact. Now is incontinent but no bleeding reported by nursing staff. -After talking yesterday with Dr. Ruiz, myself and Dr. Silver, family has decided that once patient goes home, he will be placed on hospice. Will likely need short stay at SNF before going home, will speak with shelter case manager. -Still on IV abx which will be completed in two days per Dr. Silver. No need for PICC at this time. Review of Systems unable to obtain Objective Vital Signs Date Time Temp Pulse Resp B/P Pulse Ox O2 Delivery O2 Flow Rate FiO2 06/16/16 07:25 36.8 57 22 167/92 92 Room Air 06/16/16 04:10 51 18 174/67 90 Nasal Cannula 2.0 06/16/16 00:00 Nasal Cannula 3.0 06/15/16 19:37 36.2 47 24 141/63 91 Nasal Cannula 2.0 06/15/16 16:00 Room Air 06/15/16 15:55 36.4 43 24 165/73 90 Room Air 06/15/16 13:35 92 Room Air 06/15/16 11:05 36.5 52 18 160/70 90 Humidified Oxygen 1.5 Physical Exam General Appearance: no apparent distress (sleepng at the time of my assessment) Neck: no JVD Respiratory/Chest: no respiratory distress, no accessory muscle use, + decreased breath sounds, + rhonchi (slightly coarse in right lung) Cardiovascular: regular rate, rhythm, no edema, + normal peripheral pulses Abdomen: normal bowel sounds, + distended (obese abdomen) Neurologic/Psychiatric: + aphasia, + pertinent finding (still agitated, delirious and resltess per nursin staff. nonverbal/extremely aphasic at baseline ) Assessment and Plan Problem list: Aphasia Weakness/ambulatory dysfunction Dyspnea/tachypnea Likely aspiration pneumonia Dysphagia- honey thickened liquids and now pureed diet Astrocytoma of brain Seizure disorder- ?breakthrough seizure Goals of care (Z51.5) Palliative care plan: Discussed with patient's son, Dr. Silver, and Dr. An. -Patient remains DNR/DNI. -Will be placed on hospice once patient is home. Will likely require a short stay at SNF before returning home. is still ill and is his primary caregiver. -Allow comfort feeding as tolerated per the patient and 's wishes. No feeding tube. Speech therapist will put in recommendations for diet-- honey thick and pureed. -Continue with current treatment for influenza prophylaxis and aspiration pneumonia with IV abx. Course of abx will be completed in two days per Dr. Silver. - hopes to come in this afternoon. Would like to completed POLST with her if possible. Will continue to follow as needed. Palliative Performance Scale: 20 % Continued [facility] stay due to: multiple IV medications needed, home environment unsafe for pt Discharge planning: uncertain (possibly SNF)
--- NOTE | 2016-06-16 13:50 | Family Medicine Progress Note ---
Progress Note Date of Service Jun 16, 2016. Subjective Pt evaluation today including: physical exam, chart review PO Intake: comfort feeds Voiding: no voiding problems Patient did self remove rowan overnight, rowan was inspected and intact, unlikely pieces are left over Plan currently is to go to SNF prior to moving to home for hospice information has been sent to oncologist in [place] Patient is resting in bed, non verbal- unable to complete ROS Medications Medications Administered Medications (Trade) Dose Ordered Sig/Pietro Route Start Time Stop Time Status Last Admin Dose Admin Acetaminophen 975 mg 975 mg NOW STAT NV 06/03/16 21:55 06/03/16 21:56 DC 06/03/16 21:55 975 MG Potassium Chloride/Sodium Chloride (Nss + 20meq KCl 1000ml) 1,000 ml @ 100 mls/hr Q10H IV 06/04/16 01:30 06/04/16 15:42 DC 06/04/16 13:28 100 MLS/HR Acetaminophen (Tylenol Tab) 650 mg Q4H PRN PO 06/04/16 00:30 07/04/16 00:29 06/11/16 19:52 650 MG Albuterol (Ventolin Hfa Inhaler) 2 puffs QID PRN INH 06/04/16 00:45 07/04/16 00:44 06/09/16 00:01 2 PUFFS Aspirin (Ecotrin Tab) 81 mg DAILY PO 06/04/16 09:00 06/15/16 12:52 DC 06/15/16 09:14 81 MG Dexamethasone (Decadron Tab) 4 mg QID PO 06/04/16 09:00 06/04/16 10:14 DC 06/04/16 07:46 4 MG Famotidine (Pepcid Tab) 20 mg BID PO 06/04/16 09:00 06/04/16 10:14 DC 06/04/16 07:49 20 MG Lamotrigine (Lamictal Tab) 100 mg BID PO 06/04/16 09:00 06/04/16 10:14 DC 06/04/16 07:46 100 MG Levetiracetam (Keppra Tab) 2,000 mg Q12 PO 06/04/16 09:00 06/04/16 10:14 DC 06/04/16 07:48 2,000 MG Lorazepam (Ativan Tab) 0.75 mg TID PO 06/04/16 09:00 06/04/16 10:14 DC 06/04/16 07:53 0.75 MG Multivitamins (Multivitamin Tab) 1 tab DAILY PO 06/04/16 09:00 06/04/16 10:14 DC 06/04/16 07:49 1 TAB Rosuvastatin Calcium (Crestor Tab) 5 mg DAILY PO 06/04/16 09:00 06/04/16 10:14 DC 06/04/16 07:45 5 MG Sertraline HCl 200 mg 200 mg DAILY PO 06/04/16 09:00 07/04/16 08:59 06/16/16 07:57 200 MG Levetiracetam/ Dextrose (Keppra Iv/D5 250ml) 270 ml @ 999 mls/hr Q12 IV 06/04/16 21:00 07/04/16 20:59 06/16/16 08:57 999 MLS/HR Lamotrigine 100 mg 100 mg BID PO 06/04/16 20:00 06/05/16 09:31 DC 06/05/16 09:17 100 MG Dexamethasone Sodium Phosphate 4 mg/Syringe 1 ml @ 1 mls/min Q6H IV 06/04/16 14:00 06/06/16 08:37 DC 06/06/16 08:15 1 MLS/MIN Famotidine/ Dextrose (Pepcid IV Inj/ D5 100ml) 102 ml @ 200 mls/hr Q12H IV 06/04/16 16:00 07/04/16 15:59 06/16/16 04:22 200 MLS/HR Lorazepam (Ativan Inj) 1 mg Q4H PRN IV 06/04/16 10:15 07/04/16 10:14 06/15/16 04:48 1 MG Lorazepam 0.5 mg 0.5 mg Q4H PRN IV 06/04/16 10:15 07/04/16 10:14 06/16/16 04:22 0.5 MG Lorazepam 0.5 mg/ Syringe 1 ml @ 1 mls/min Q4H PRN IV 06/04/16 12:15 07/04/16 12:14 06/12/16 16:40 1 MLS/MIN Lorazepam/Syringe (Ativan Inj/ Syringe) 1 ml @ 1 mls/min Q4H PRN IV 06/04/16 12:15 07/04/16 12:14 06/14/16 01:17 1 MLS/MIN Lamotrigine 125 mg 125 mg BID PO 06/05/16 20:00 07/05/16 19:59 06/16/16 07:56 125 MG Dexamethasone Sodium Phosphate 6 mg/Syringe 1.5 ml @ 1 mls/min Q6H IV 06/06/16 14:00 07/06/16 13:59 06/16/16 14:34 1 MLS/MIN Bevacizumab/ Bevacizumab/ Sodium Chloride (Avastin/Avastin/ Nss 100ml) 157.6 ml @ 315.2 mls/ hr DAILY IV 06/09/16 11:30 06/09/16 16:02 DC 06/09/16 12:00 315.2 MLS/HR Oseltamivir Phosphate 75 mg 75 mg DAILY PO 06/11/16 08:00 06/21/16 07:59 06/16/16 07:57 75 MG Ampicillin Sodium/ Sulbactam Sodium 1500 mg/Sodium Chloride 104 ml @ 200 mls/hr Q6H IV 06/12/16 14:00 06/19/16 13:59 06/16/16 14:34 200 MLS/HR Sodium Chloride (1/2 Nss 1000ml) 1,000 ml @ 75 mls/hr [id number] IV 06/12/16 15:15 07/12/16 15:14 06/16/16 14:34 75 MLS/HR Morphine Sulfate (MoRPHine SULFATE INJ) 2 mg Q4 PRN IV 06/14/16 16:00 06/28/16 15:59 06/16/16 04:31 2 MG Aspirin (Aspirin Chew) 81 mg DAILY PO 06/16/16 08:00 07/16/16 07:59 06/16/16 07:56 81 MG Lorazepam (Ativan Tab) 0.5 mg BID PRN PO 06/15/16 13:30 07/15/16 13:29 06/16/16 07:59 0.5 MG Objective Vital Signs Date Time Temp Pulse Resp B/P Pulse Ox O2 Delivery O2 Flow Rate FiO2 06/16/16 08:15 Nasal Cannula 3.0 06/16/16 07:25 36.8 57 22 167/92 92 Room Air 06/16/16 04:10 51 18 174/67 90 Nasal Cannula 2.0 06/16/16 00:00 Nasal Cannula 3.0 06/15/16 19:37 36.2 47 24 141/63 91 Nasal Cannula 2.0 06/15/16 16:00 Room Air 06/15/16 15:55 36.4 43 24 165/73 90 Room Air Physical Exam General Appearance: WD/WN, no apparent distress Eyes: normal inspection ENT: normal ENT inspection Neck: supple Respiratory/Chest: + decreased breath sounds (bases), + pertinent finding ( coarse breath sounds thoughout) Cardiovascular: regular rate, rhythm, no murmur Abdomen: normal bowel sounds, non tender, soft Extremities: no pedal edema, no calf tenderness Neurologic/Psychiatric: + pertinent finding (nonverbal) Skin: normal color, warm/dry, no rash Lymphatic: no adenopathy Assessment and Plan This is a 70 yo m with a h/o astrocytoma, aspiration pneumonia and worsening functional status. Consideration for SNf and then home for hospice. 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 - IV NS 75/hr - Comfort feedings, so will most likely continue to aspirate Leukocytosis- multifactorial - Chemo, Aspiration, Steroids - continue to follow CBC Exposure to influenza - Tamiflu 75mg dailyx 10 days - Influenza testing negative (PCR) GERD - Famotidine DVT - SCD Code Status - DNR Continued [facility] stay due to: other Discharge planning: uncertain Continued [facility] stay due to: other Discharge planning: nursing home facility Reviewed: Pt Seen/Exam by Me History has been resting in bed and mostly somnolent Constitutional: denies: fever General Appearance: no apparent distress Respiratory: no respiratory distress, crackles (bilaterally) Cardiovascular: regular rate, rhythm Neurologic/Psychiatric: other (somnolent) Assessment/Plan I have reviewed the medical record and performed a history and physical examination of this patient today. I have discussed the case with Dr. Silver. The above note reflects my findings, conclusions, and recommendations.
[2016-06-16] MEDS ORDERED: OXYCODONE HCL SOLN 5 MG/5 ML UDC PO PRN (14:00)
[2016-06-16] MEDS ORDERED: OXYCODONE HCL IR 5 MG TAB (IMMEDIATE RELEASE) PO PRN (14:00)
[2016-06-16] MEDS: SODIUM CHLORIDE 0.45% 1000ML 1,000 ML IV SCH (14:34)
[2016-06-16 16:15] VITALS: BP 165/76; PULSE 53; TEMP 36.4; O2SAT 92
[2016-06-16] MEDS: LORAZEPAM INJ 1 MG in SYRINGE 0.5 ML IV PRN (23:34)
[2016-06-17] MEDS: DEXAMETHASONE INJ 6 MG in SYRINGE 0 ML IV SCH ×2 (01:46→07:54)
[2016-06-17] MEDS: AMPICILLIN/SULBACTAM SOD INJ 1,500 MG in SODIUM CHLORIDE 0.9% 100ML 100 ML IV SCH ×2 (02:11→07:55)
[2016-06-17] MEDS: SODIUM CHLORIDE 0.45% 1000ML 1,000 ML IV SCH (02:11)
[2016-06-17] MEDS: MoRPHine SULFATE 2 MG/ML CARP IV PRN (02:50)
[2016-06-17] MEDS: FAMOTIDINE IV INJ 20 MG in DEXTROSE 5% 100ML 100 ML IV SCH (03:51)
[2016-06-17] MEDS: ASPIRIN 81 MG CHEW PO SCH (07:57)
[2016-06-17] MEDS: OSELTAMIVIR PHOSPHATE 75 MG CAP PO SCH (07:58)
[2016-06-17] MEDS: SERTRALINE HCL 100 MG TAB PO SCH (07:59)
[2016-06-17 08:12] VITALS: BP 154/86; PULSE 46; TEMP 36.8
--- NOTE | 2016-06-17 08:57 | Family Medicine Progress Note ---
Progress Note Date of Service Jun 17, 2016. Subjective Pt evaluation today including: physical exam, chart review, lab review Voiding: no voiding problems patient has been stable overnight, continues to remain nonverbal plan is for hospice unable to complete ROS because nonverbal Objective Vital Signs Date Time Temp Pulse Resp B/P Pulse Ox O2 Delivery O2 Flow Rate FiO2 06/17/16 08:12 36.8 46 24 154/86 Room Air 06/17/16 00:30 Nasal Cannula 1.5 06/16/16 16:20 Nasal Cannula 1.5 06/16/16 16:15 36.4 53 24 165/76 92 1.5 Physical Exam General Appearance: WD/WN, no apparent distress Eyes: normal inspection ENT: normal ENT inspection Neck: supple Respiratory/Chest: lungs clear, no respiratory distress, no accessory muscle use, + decreased breath sounds (bases), + pertinent finding (coarse breath sounds thoughout) Cardiovascular: regular rate, rhythm, no murmur Abdomen: normal bowel sounds, non tender, soft Extremities: non-tender, no pedal edema, no calf tenderness Neurologic/Psychiatric: + pertinent finding (nonverbal) Skin: normal color, warm/dry, no rash Lymphatic: no adenopathy Assessment and Plan This is a 70 yo m with a h/o astrocytoma, aspiration pneumonia and worsening functional status. Plan is to transition patient to comfort measures. 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 Recurrent aspiration pneumonia Delirium sec to sepsis Astrocytoma - palliative consult and oncology consult- appreciate input - final decision for comfort measures confirmed by - hospital records sent to oncologist in [place] - Agitation increasing - Ativan 2 mg q2 - Oxy IR rao'n for pain - Roxanol 5 mg q 2 - Scopolamine patch - Swallow study, appreciate input - d/c Keppra IV, lamictal, dexamethasone - ativan 2 mg q2 h prn available if seizure occurs in absence of Keppra - d/c unasyn, ivf Continued [facility] stay due to: other Discharge planning: other Reviewed: Pt Seen/Exam by Me History very restless in bed. pulling iv lines and tearing iv tubings Constitutional: denies: fever General Appearance: other (restless in bed. at bedside) Respiratory: no respiratory distress, crackles (lower lung bilaterally) Cardiovascular: regular rate, rhythm Neurologic/Psychiatric: other (delirious) Assessment/Plan I have reviewed the medical record and performed a history and physical examination of this patient today. I have discussed the case with Dr. Silver. The above note reflects my findings, conclusions, and recommendations. Discussed the current condition with and she agrees to pursuing comfort care. Tried reaching the son and left message on his phone to call back.
[2016-06-17] MEDS: LEVETIRACETAM IV 2,000 MG in DEXTROSE 5% 250ML 250 ML IV SCH (09:07)
[2016-06-17] MEDS ORDERED: MoRPHine SULFATE 4 MG/ML 1 ML CARP\\VIAL ONE (10:32)
[2016-06-17] MEDS ORDERED: SCOPOLAMINE 1.5 MG TDSY TD SCH (10:45)
--- NOTE | 2016-06-17 11:42 | Palliative Care Progress Note ---
Palliative Care Progress Note Date of Service Jun 17, 2016. Subjective Pt evaluation today including: conversation w/ family, physical exam, chart review, conversation w/ [employer] consultant, review of inpatient medication list Pain: patient mostly somnolent, unable to assess PO Intake: none Voiding: incontinence -Patient has markedly declined since yesterday. Has pulled out IVs, ripped IV tubing in half several times, pulled rowan out yesterday. He is not able to communicate, eat/drink, follow commands, or even make eye contact at this point. He required morphine 4mg IV and is now resting much more comfortably. -Discussed was had with Dr. An, Dr. Silver, and the patient's Concepción and she made the decision to make patient comfort measures only. -I also discussed with Concepción, and she states that she would like patient to be comfort measures only and discontinue all medications unrelated to comfort. -We discussed options for patient's care, is concerned about being able to treat patient's symptoms at home and I agree. I spoke with Dr. An about Dr. Silver about this as well. See plan below. Review of Systems unable to obtain ROS Objective Vital Signs Date Time Temp Pulse Resp B/P Pulse Ox O2 Delivery O2 Flow Rate FiO2 06/17/16 08:49 Room Air 06/17/16 08:12 36.8 46 24 154/86 Room Air 06/17/16 00:30 Nasal Cannula 1.5 06/16/16 16:20 Nasal Cannula 1.5 06/16/16 16:15 36.4 53 24 165/76 92 1.5 Physical Exam General Appearance: + pertinent finding (resting much more comfortably at this time) Neck: no JVD Respiratory/Chest: no respiratory distress, no accessory muscle use, + decreased breath sounds, + crackles (few in right base), + pertinent finding ( respiratory rate 16) Cardiovascular: regular rate, rhythm, no edema Abdomen: normal bowel sounds, + distended (obese abdomen) Neurologic/Psychiatric: + aphasia (nonverbal at baseline), + pertinent finding (is now somnolent after IV morphine) Assessment and Plan Problem list: Aphasia Weakness/ambulatory dysfunction Dyspnea/tachypnea Likely aspiration pneumonia Dysphagia- honey thickened liquids and now pureed diet Astrocytoma of brain Seizure disorder- ?breakthrough seizure Goals of care (Z51.5) Palliative care plan: Discussed with patient's Concepción, Dr. An and Dr. Silver. Also updated family caseworker. -Given the patient's marked decline in function and mental status, inability to eat, non-communicative state and overall very poor prognosis, the patient's decided to transition patient to comfort measures only. Concepción stated that she will speak to her son, Giuseppe, to let him know. She already spoke with Giuseppe 's who is also in agreement with ACTING MANAGER. -Convert to Roxanol 5-10mg Q2h PO PRN from IV morphine due to poor IV access. -Discontinue all medications unrelated to comfort. In regards to IV Keppra to prevent seizure- patient's IV access is very poor and may be needed for PRN medications. Keppra infuses at 999ml/hr, so this may need to be discontinued-- I spoke with Dr. Silver about this. I recommend increasing lorazepam to 2mg IV Q2h PRN agitation or seizure activity. -Scopolamine patch already ordered. -Replace rowan catheter once patient is calm as the incontinence causes further agitation. -Disposition uncertain at this time. Per and Dr. An, will wait until tomorrow to see how patient is doing. If further decline, no transfer and possibly [facility] hospice if patient still requiring IV medications for comfort. Option of going home with hospice discussed with as well. She is deciding. Thank you again for allowing me to participate in the care of this patient and family. Palliative Performance Scale: 10 % Continued [facility] stay due to: multiple IV medications needed Discharge planning: uncertain
[2016-06-17] MEDS ORDERED: LORAZEPAM 2 MG TAB PO PRN (11:45)
[2016-06-17] MEDS ORDERED: MoRPHine SULFATE 4 MG/ML 1 ML CARP\\VIAL IV PRN (12:00)
[2016-06-17] MEDS ORDERED: LORAZEPAM 2 MG/ML 1 ML VIAL IV PRN (15:00)
[2016-06-17 15:05] VITALS: BP 164/74; PULSE 40; TEMP 36.3; O2SAT 94
[2016-06-17] MEDS: CHECK SCOPOLAMINE PATCH PLACEMENT SCH ×2 (16:09→23:54)
[2016-06-17] MEDS: MoRPHine SULFATE 5 MG/0.25 ML UDP PO PRN ×2 (17:38→21:22)
[2016-06-17] MEDS: LORAZEPAM INJ 2 MG in SYRINGE 1 ML IV PRN ×2 (18:11→23:53)
[2016-06-18] MEDS: MoRPHine SULFATE 5 MG/0.25 ML UDP PO PRN ×5 (01:42→13:10)
[2016-06-18] MEDS: ATROPINE SULFATE 1% OP SOLN 5 ML BTL SL PRN ×3 (05:50→15:23)
[2016-06-18] MEDS: CHECK SCOPOLAMINE PATCH PLACEMENT SCH ×3 (07:42→23:31)
--- NOTE | 2016-06-18 08:06 | Family Medicine Progress Note ---
Progress Note Date of Service Jun 18, 2016. Subjective Pt evaluation today including: chart review Voiding: no voiding problems Patient is sedated and comfortable. comfort measures. nonverbal, unable to complete ROS Medications Medications Administered Medications (Trade) Dose Ordered Sig/Pietro Route Start Time Stop Time Status Last Admin Dose Admin Acetaminophen 975 mg 975 mg NOW STAT [place] 06/03/16 21:55 06/03/16 21:56 DC 06/03/16 21:55 975 MG Potassium Chloride/Sodium Chloride (Nss + 20meq KCl 1000ml) 1,000 ml @ 100 mls/hr Q10H IV 06/04/16 01:30 06/04/16 15:42 DC 06/04/16 13:28 100 MLS/HR Acetaminophen (Tylenol Tab) 650 mg Q4H PRN PO 06/04/16 00:30 06/17/16 15:01 DC 06/11/16 19:52 650 MG Albuterol (Ventolin Hfa Inhaler) 2 puffs QID PRN INH 06/04/16 00:45 06/17/16 11:43 DC 06/09/16 00:01 2 PUFFS Aspirin (Ecotrin Tab) 81 mg DAILY PO 06/04/16 09:00 06/15/16 12:52 DC 06/15/16 09:14 81 MG Dexamethasone (Decadron Tab) 4 mg QID PO 06/04/16 09:00 06/04/16 10:14 DC 06/04/16 07:46 4 MG Famotidine (Pepcid Tab) 20 mg BID PO 06/04/16 09:00 06/04/16 10:14 DC 06/04/16 07:49 20 MG Lamotrigine (Lamictal Tab) 100 mg BID PO 06/04/16 09:00 06/04/16 10:14 DC 06/04/16 07:46 100 MG Levetiracetam (Keppra Tab) 2,000 mg Q12 PO 06/04/16 09:00 06/04/16 10:14 DC 06/04/16 07:48 2,000 MG Lorazepam (Ativan Tab) 0.75 mg TID PO 06/04/16 09:00 06/04/16 10:14 DC 06/04/16 07:53 0.75 MG Multivitamins (Multivitamin Tab) 1 tab DAILY PO 06/04/16 09:00 06/04/16 10:14 DC 06/04/16 07:49 1 TAB Rosuvastatin Calcium (Crestor Tab) 5 mg DAILY PO 06/04/16 09:00 06/04/16 10:14 DC 06/04/16 07:45 5 MG Sertraline HCl 200 mg 200 mg DAILY PO 06/04/16 09:00 06/17/16 15:01 DC 06/17/16 07:59 200 MG Levetiracetam/ Dextrose (Keppra Iv/D5 250ml) 270 ml @ 999 mls/hr Q12 IV 06/04/16 21:00 06/17/16 11:43 DC 06/17/16 09:07 999 MLS/HR Lamotrigine 100 mg 100 mg BID PO 06/04/16 20:00 06/05/16 09:31 DC 06/05/16 09:17 100 MG Dexamethasone Sodium Phosphate 4 mg/Syringe 1 ml @ 1 mls/min Q6H IV 06/04/16 14:00 06/06/16 08:37 DC 06/06/16 08:15 1 MLS/MIN Famotidine/ Dextrose (Pepcid IV Inj/ D5 100ml) 102 ml @ 200 mls/hr Q12H IV 06/04/16 16:00 06/17/16 11:43 DC 06/17/16 03:51 200 MLS/HR Lorazepam (Ativan Inj) 1 mg Q4H PRN IV 06/04/16 10:15 06/17/16 11:43 DC 06/15/16 04:48 1 MG Lorazepam 0.5 mg 0.5 mg Q4H PRN IV 06/04/16 10:15 06/17/16 11:43 DC 06/16/16 04:22 0.5 MG Lorazepam 0.5 mg/ Syringe 1 ml @ 1 mls/min Q4H PRN IV 06/04/16 12:15 06/17/16 11:43 DC 06/12/16 16:40 1 MLS/MIN Lorazepam/Syringe (Ativan Inj/ Syringe) 1 ml @ 1 mls/min Q4H PRN IV 06/04/16 12:15 06/17/16 11:43 DC 06/16/16 23:34 1 MLS/MIN Lamotrigine 125 mg 125 mg BID PO 06/05/16 20:00 06/17/16 15:01 DC 06/17/16 07:56 125 MG Dexamethasone Sodium Phosphate 6 mg/Syringe 1.5 ml @ 1 mls/min Q6H IV 06/06/16 14:00 06/17/16 11:43 DC 06/17/16 07:54 1 MLS/MIN Bevacizumab/ Bevacizumab/ Sodium Chloride (Avastin/Avastin/ Nss 100ml) 157.6 ml @ 315.2 mls/ hr DAILY IV 06/09/16 11:30 06/09/16 16:02 DC 06/09/16 12:00 315.2 MLS/HR Oseltamivir Phosphate 75 mg 75 mg DAILY PO 06/11/16 08:00 06/17/16 11:43 DC 06/17/16 07:58 75 MG Ampicillin Sodium/ Sulbactam Sodium 1500 mg/Sodium Chloride 104 ml @ 200 mls/hr Q6H IV 06/12/16 14:00 06/17/16 11:43 DC 06/17/16 07:55 200 MLS/HR Sodium Chloride (1/2 Nss 1000ml) 1,000 ml @ 75 mls/hr [id number] IV 06/12/16 15:15 06/17/16 11:44 DC 06/17/16 02:11 75 MLS/HR Morphine Sulfate (MoRPHine SULFATE INJ) 2 mg Q4 PRN IV 06/14/16 16:00 06/17/16 11:44 DC 06/17/16 02:50 2 MG Aspirin (Aspirin Chew) 81 mg DAILY PO 06/16/16 08:00 06/17/16 11:44 DC 06/17/16 07:57 81 MG Lorazepam (Ativan Tab) 0.5 mg BID PRN PO 06/15/16 13:30 06/17/16 11:44 DC 06/16/16 17:46 0.5 MG Morphine Sulfate (MoRPHine SULFATE INJ) 4 mg STK-MED ONCE .ROUTE 06/17/16 10:32 06/17/16 10:35 DC 06/17/16 10:38 4 MG Scopolamine (Transderm-Scop Patch) 1.5 mg Q72H TD 06/17/16 10:45 07/17/16 10:44 06/17/16 11:46 1.5 MG Miscellaneous Information (Check Scopolamine Patch Placement) 1 ea QS N/A 06/17/16 16:00 07/17/16 15:59 06/18/16 07:42 1 EA Morphine Sulfate (Roxanol Oral Soln) 5 mg Q2H PRN PO 06/17/16 11:45 07/01/16 11:44 06/18/16 05:49 5 MG Atropine Sulfate (Atropine Sulfate 1% Oph Soln) 2 drops TID PRN SL 06/17/16 15:00 07/17/16 14:59 06/18/16 07:42 2 DROPS Lorazepam 2 mg 2 mg Q2H PRN IV 06/17/16 15:00 07/17/16 14:59 06/18/16 04:10 2 MG Lorazepam/Syringe (Ativan Inj/ Syringe) 2 ml @ 1 mls/min Q2H PRN IV 06/17/16 15:15 07/17/16 15:14 06/17/16 23:53 1 MLS/MIN Objective Vital Signs Date Time Temp Pulse Resp B/P Pulse Ox O2 Delivery O2 Flow Rate FiO2 06/18/16 00:40 Room Air 06/17/16 16:00 Room Air 06/17/16 15:05 36.3 40 18 164/74 94 Room Air 06/17/16 08:49 Room Air 06/17/16 08:12 36.8 46 24 154/86 Room Air Physical Exam General Appearance: WD/WN, no apparent distress Eyes: normal inspection ENT: normal ENT inspection Neck: supple Respiratory/Chest: no respiratory distress, no accessory muscle use, + decreased breath sounds (bilat bases), + pertinent finding (coarse throughout) Cardiovascular: no murmur, + bradycardia Abdomen: normal bowel sounds, non tender, soft Extremities: normal inspection, no pedal edema, no calf tenderness Neurologic/Psychiatric: + pertinent finding (non verbal, sedated) Skin: normal color, warm/dry, no rash Lymphatic: no adenopathy Assessment and Plan This is a 70 yo m with a h/o astrocytoma, aspiration pneumonia and worsening functional status. Plan is to transition patient to comfort measures. 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 and son at bedside. Constitutional: denies: fever General Appearance: other (comfortable. ) Respiratory: no respiratory distress, other (upper resp conducted sound) Cardiovascular: regular rate, rhythm Neurologic/Psychiatric: other (unarousable) Skin Characteristics: warm/dry Assessment/Plan I have reviewed the medical record and performed a history and physical examination of this patient today. I have discussed the case with Dr. Silver. The above note reflects my findings, conclusions, and recommendations.
--- NOTE | 2016-06-18 12:52 | Neurology Progress Notes ---
Neurology Progress Note Date of Service Jun 17, 2016. Subjective The patient has had no seizure activity according to the nursing staff over the last several days. He is very confused and won't wear is close. He always pulls picks them off. He is pulling his IVs out. He is not following commands much and seems confused to the nursing staff. With speaking to the patient this morning he is in no pain. He is not dizzy. Objective Date Time Temp Pulse Resp B/P Pulse Ox O2 Delivery O2 Flow Rate FiO2 06/18/16 08:29 Nasal Cannula 3.0 06/18/16 00:40 Room Air 06/17/16 16:00 Room Air 06/17/16 15:05 36.3 40 18 164/74 94 Room Air Exam: He is awake but somewhat confused. When left alone, he could fall asleep. He tends to want to roll on his right side. He will pick at clothing sheets that are on his body. He spontaneously moves his left side but not his right side. He will not spontaneously speak but I didn't get him to say the word "no" with conversation when asked if he is in pain. He will follow some one-step commands. He has no abnormal breathing patterns. He has no abnormal involuntary movements otherwise. Extraocular eye muscles seem intact. There is no nystagmus. Pupils are equal at 4-5 mm bilaterally. There is no facial droop. Tongue is midline. He has 4/5 strength diffusely in the right arm and right leg. He will minimally withdrawal to pain, but he does grimace and feel it. Reflexes are 1/4 throughout and he has an upgoing toe with plantar stimulation on the right. Left arm and leg strength are 4/5 diffusely. Toes are downgoing to plantar stimulation bilaterally. He withdraws quickly with pain on the left foot. Current Inpatient Medications Medications (Trade) Dose Ordered Sig/Pietro Route Start Time Stop Time Status Last Admin Dose Admin Oxycodone HCl (Roxicodone Soln) 5 mg Q4 PRN PO 06/16/16 14:00 06/30/16 13:59 Scopolamine (Transderm-Scop Patch) 1.5 mg Q72H TD 06/17/16 10:45 07/17/16 10:44 06/17/16 11:46 1.5 MG Miscellaneous (Remove Transderm-Scop Patch) 1 ea Q72H N/A 06/20/16 10:45 07/20/16 10:44 Miscellaneous Information (Check Scopolamine Patch Placement) 1 ea QS N/A 06/17/16 16:00 07/17/16 15:59 06/18/16 07:42 1 EA Morphine Sulfate (Roxanol Oral Soln) 5 mg Q2H PRN PO 06/17/16 11:45 07/01/16 11:44 06/18/16 11:48 5 MG Atropine Sulfate (Atropine Sulfate 1% Oph Soln) 2 drops TID PRN SL 06/17/16 15:00 07/17/16 14:59 06/18/16 07:42 2 DROPS Lorazepam 2 mg 2 mg Q2H PRN IV 06/17/16 15:00 07/17/16 14:59 06/18/16 04:10 2 MG Lorazepam/Syringe (Ativan Inj/ Syringe) 2 ml @ 1 mls/min Q2H PRN IV 06/17/16 15:15 07/17/16 15:14 06/17/16 23:53 1 MLS/MIN Impression 1. 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 He is post biopsy in 2014 as full resection could not be done because of the location. He received 6000 cGy of radiation to the brain. He has received chemotherapy in the past. Currently he has right hemiparesis and an expressive aphasia. He is getting worse clinically over time. 2. 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 This is fairly well controlled on current medication. Plan 1. Overall he is a very poor prognosis. I'm not sure what we can do from a neurologic standpoint a further for this gentleman. 2. Oncology has indicated there is no specific chemotherapy or treatment they can do further at this point. 3. I think it is reasonable at this point to keep him comfortable and I agree with hospice status. Please contact me if I can be of further assistance on the case. I have spoken with Dr. Silver regarding this case including his presentation and treatment options.
[2016-06-18] MEDS ORDERED: NURSING VERBAL MED ORDER ONE (15:30)
[2016-06-18] MEDS: ATROPINE SULFATE 1% OP SOLN 2 ML BTL SL PRN ×2 (17:49→19:32)
[2016-06-18] MEDS: LORAZEPAM INJ 2 MG in SYRINGE 1 ML IV PRN (20:31)
[2016-06-19] MEDS: ATROPINE SULFATE 1% OP SOLN 2 ML BTL SL PRN ×4 (00:01→07:05)
[2016-06-19] MEDS: MORPHINE SULF/NSS 250MG/250ML IV PRN ×2 (04:00→06:09)
[2016-06-19] MEDS: LORAZEPAM INJ 2 MG in SYRINGE 1 ML IV PRN (04:23)
[2016-06-19] MEDS ORDERED: NURSING VERBAL MED ORDER ONE ×2 (05:30→07:15)
[2016-06-19] MEDS ORDERED: GLYCOPYRROLATE INJ 0.2 MG/ML VIAL IV PRN (05:30)
[2016-06-19] MEDS: MoRPHine SULFATE 2 MG/ML CARP IV PRN ×2 (06:12→07:33)
[2016-06-19] MEDS: CHECK SCOPOLAMINE PATCH PLACEMENT SCH (07:05)
[2016-06-19] MEDS ORDERED: NURSING DECISION MEDICATION ORDER SCH (07:45)
--- NOTE | 2016-06-19 08:33 | Death Pronouncement Note ---
Pronouncement Note Date & Time of Jun 19, 2016. 0803 Pronouncement At time of pronouncement the patients pupils were fixed and dilated, there was no spontaneous respiratory effort, no palpable pulse, no audible heart tones, and no response to pain or voice.
--- NOTE | 2016-06-19 09:18 | Palliative Care Progress Note ---
Palliative Care Progress Note Date of Service Jun 19, 2016. Subjective Entered patient's room this AM. Witness him taking a breath, then ceased to breathe and pulseless at 0803. Dr. Silver and patient's , Concepc[place], notified of patient's by AVRIL Loving.
--- NOTE | 2016-06-19 16:23 | Death Summary ---
Summary of Admission Date Jun 04, 2016 at 00:25 Date & Time of Jun 19, 2016. 0803 Cause of Astrocytoma Hospital Course this is a 70 yo m with a known left temporoparietal astrocytoma that presented to the ED with a seizure. The patient was admitted recently for PNA and [facility]. After discharge he was brought home and found to have a seizure so he was brought back to the ED. During his stay his functional status started to decline and also acquired aspiration pneumonia. We discussed the functional decline with the family and expectations. Oncology was consulted and Hospice was recommended. He was changed to comfort measures after agreeable with and son. He was pronounced on Jun 19, 2016 @ 0803 by . Copy To Cherry Lange C.R.N.P.
== END 2016-06-19 18:13 | disposition expired | DRG 54 ==
LOC: ENRESERVDT → ENRESERVTM → C.EDB 21:44 → C.2E 06-04 00:25 → C.4E 06-04 10:00
PROVIDERS: ADMIT Hospitalist; ATTEND Family Medicine
DX: C71.9 Malignant neoplasm of brain, unspecified (principal); G93.41 Metabolic encephalopathy; J69.0 Pneumonitis due to inhalation of food and vomit; A41.9 Sepsis, unspecified organism; R47.01 Aphasia; R64 Cachexia; I10 Essential (primary) hypertension; E78.00 Pure hypercholesterolemia, unspecified; Z87.19 Personal history of other diseases of the digestive system; Z80.9 Family history of malignant neoplasm, unspecified; Z82.0 Family history of epilepsy and other diseases of the nervous system; Z79.82 Long term (current) use of aspirin; G40.909 Epilepsy, unspecified, not intractable, without status epilepticus; Z79.899 Other long term (current) drug therapy; R00.1 Bradycardia, unspecified; K21.9 Gastro-esophageal reflux disease without esophagitis; R26.9 Unspecified abnormalities of gait and mobility; F32.9 Major depressive disorder, single episode, unspecified; F41.9 Anxiety disorder, unspecified; Z66 Do not resuscitate; Z51.5 Encounter for palliative care; E66.9 Obesity, unspecified; Z68.27 Body mass index [BMI] 27.0-27.9, adult; R13.10 Dysphagia, unspecified; N40.1 Benign prostatic hyperplasia with lower urinary tract symptoms; R32 Unspecified urinary incontinence